=== PATIENT | male | born 1975 | race Caucasian/White ===

== ENCOUNTER 2024-10-30 18:34 | Inpatient (IN) | payer MEDICAID, SELFPAY ==
[2024-10-30] VITALS (20 sets, daily range): BP systolic 194–262; BP diastolic 124–184; PULSE 76–113; RESP 13–34; TEMP 37–37.2; O2SAT 84–97; BMI 35.3
--- NOTE | 2024-10-30 19:03 | PC.NURSE ---
Kemi bedside talking with pt. and pt.'s Mother.
--- NOTE | 2024-10-30 19:04 | EKG_ITS ---
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
--- NOTE | 2024-10-30 19:04 | XR_ITS ---
Examination: AP chest single view Technique: Portable sitting AP chest single view. Date and time: October 30, 2024 1906 hrs. Indications: Shortness of breath today. Findings: Significantly enlarged cardiac contour. No pneumonia or pulmonary edema. The osseous structures are intact Impression: Significantly enlarged cardiac contour, differential would include pericardial effusion
--- NOTE | 2024-10-30 19:05 | PC.NURSE ---
Pt. states he coughs mostly at night but he doesn't cough anything up.
--- NOTE | 2024-10-30 19:16 | EDNOTE_ITS ---
ED SOB =RME/HPI General Chief Complaint: Shortness of Breath/Dyspnea Stated Complaint: SOB Time Seen by Provider: 10/30/24 18:56 Arrival date/time: 10/30/24 18:34 RME / HPI RME / HPI Narrative: 49-year-old male patient shortness of breath. According to the patient has been sick for the last 3 weeks, described as worsening shortness of breath, especially on lying flat, feels like drowning, associated with worsening lower extremity swelling. Patient also complained of dyspnea on exertion. Went to PCP today and was diagnosed with COVID-19. Was sent as for a blood pressure above 262/184. Patient is not taking any medication and have not seen a doctor for a while. No fever noted. Patient was noted to be hypoxic also currently satting 96% on 2 L Related Data Allergies Allergy/AdvReac Type Severity Reaction Status Date / Time NKA* Allergy Uncoded 10/30/24 18:59 Review of Systems Review of Systems Narrative Review of Systems: Review of system reviewed and within normal limits except mentioned in HPI ED Exam Narrative Physical exam: VITAL SIGNS: Reviewed. GENERAL APPEARANCE: Alert and interactive, follows commands, no acute distress, HEAD AND FACE: Non-traumatic. ENT: PERRL, pink conjunctivitis, eyelid no trauma, Mucous membrane moist. NECK: Supple, nontender, no nuchal rigidity. CHEST: No tenderness, no crepitus, no paradoxical movement, no retractions. LUNGS: Symmetric, + right basal rales, no wheezing, no ronchi, no stridor, decreased breath sounds bilaterally. HEART: Regular rate, regular rhythm, no murmur, no gallops. ABDOMEN: Soft, positive bowel sounds, nondistended, no guarding, nontender, no rebound, no masses, RECTAL: Deferred. GENITAL: Deferred. NEUROLOGICAL: Gross motor function intact sensory function intact, Appropriate for age. MUSCULOSKELETAL: low back nontender, full range of motion. EXTREMITIES: + +3 bilateral lower extremity edema all the way to the waist area. Full range of motion., Nontender SKIN: Color pink, dry, no rash, no lacerations, no abrasions, no contusions. LYMPHATICS: Deferred. Course Quality Measures none Orders Category Date Time Status Bedside COVID-19 Antigen Test NOW Care 10/30/24 20:08 Active COVID-19 Screening Questionnaire NOW Care 10/30/24 21:16 Completed Decision to Admit X1 Care 10/30/24 21:16 Completed EKG (ED ONLY) *Do not use* NOW Care 10/30/24 19:04 Completed EKG (ED Only) Stat Exams 10/30/24 19:04 Draft XR chest 1V Stat Exams 10/30/24 19:04 Completed B-Type Natriuretic Peptide Stat Lab 10/30/24 19:10 Completed Blood Culture (Lab) Stat Lab 10/30/24 19:10 Received CBC Stat Lab 10/30/24 19:10 Completed Comprehensive Metabolic Panel Stat Lab 10/30/24 19:10 Completed Drug Screen,Urine Stat Lab 10/30/24 20:31 Completed Lactate (Lactic Acid) Stat Lab 10/30/24 19:10 Completed Magnesium Stat Lab 10/30/24 19:10 Completed Partial Thromboplastin Time Stat Lab 10/30/24 19:10 Completed Procalcitonin Stat Lab 10/30/24 19:10 Completed Prothrombin Time with INR Stat Lab 10/30/24 19:10 Completed Troponin I Stat Lab 10/30/24 19:10 Completed Troponin I Stat Lab 10/30/24 22:00 Completed Urinalysis, C/S if Indicated Stat Lab 10/30/24 20:31 Completed Furosemide Inj [Lasix Inj] Med 10/30/24 19:04 Discontinued 40 mg IVP X1 ONE Labetalol IV [Trandate IV] Med 10/30/24 19:04 Discontinued 10 mg IVP X1 ONE Labetalol IV [Trandate IV] Med 10/30/24 21:51 Discontinued 10 mg IVP X1 ONE Nitroglycerin Oint 2% [Nitro-paste Oint 2%] Med 10/30/24 19:04 Discontinued 1 inch TOP X1 ONE Potassium Chloride [K-Dur] Med 10/30/24 20:02 Discontinued 40 meq PO X1 ONE hydrALAZINE INJ [Apresoline Inj] Med 10/30/24 20:07 Discontinued 10 mg IVP X1 ONE Vital Signs Vital signs: Vital Signs Temperature 98.6 F 10/30/24 18:54 Pulse Rate 107 H 10/30/24 18:54 Respiratory Rate 22 H 10/30/24 18:54 Blood Pressure 262/184 H 10/30/24 18:54 Pulse Oximetry (%) 96 09/03/25 18:54 Oxygen Delivery Method Nasal Cannula 10/30/24 18:54 Oxygen Flow Rate 2 10/30/24 18:54 Shortness of Breath / Dyspnea [facility] Narrative [facility] Narrative:: 49-year-old male patient shortness of breath. According to the patient has been sick for the last 3 weeks, described as worsening shortness of breath, especially on lying flat, feels like drowning, associated with worsening lower extremity swelling. Patient also complained of dyspnea on exertion. Went to PCP today and was diagnosed with COVID-19. Was sent as for a blood pressure above 262/184. Patient is not taking any medication and have not seen a doctor for a while. No fever noted. Patient was noted to be hypoxic also currently satting 96% on 2 L. EKG showed sinus tachycardia, ventricular rate 106 bpm, VT interval 169 MS, no ST segment elevation or depression noted. Patient's blood pressure was initi ally noted to be 262/184, heart rate 107, received labetalol 10 mg IV, hydralazine 10 mg IV. Patient's blood pressure stable BP 224/163. I added another 10 mg of labetalol. Patient also received Nitropaste, and Lasix IV. Plan of care discussed with the patient initially he wanted to go AMA however I convinced patient to stay in the hospital patient agrees to be admitted. Patient chest x-ray showed cardiomegaly suspect possible pericardial effusion. Patient's laboratory workup significant for creatinine of 2.4, BUN of 28, potassium 3.0. Patient was also given potassium replacement. Patient was noted to have a troponin of 0.135. BNP was 63. Urinalysis no UTI Spoke with hospitalist, who admitted the patient. Patient data External records reviewed:: None Clinical information provided by:: patient and family Social determinants that could affect healthcare access:: none Patient has the following chronic illnesses:: None How is presenting disease/condition affected by chronic disease/condition?: no chronic disease Evaluation data The following diagnostics were reviewed and interpreted by me:: lab results and radiology exam(s) Lab and/or radiology exams considered but not ordered:: Plan Interpretation Summary: See results MDM Medications / Prescriptions Medications or Prescriptions considered but not ordered:: None Medication administrations:: Medication Administration History Discontinued Medications Furosemide (Furosemide Inj 10 Mg/Ml 4ml Vial) 40 mg IVP X1 ONE Stop: 10/30/24 19:05 Last Admin: 10/30/24 19:25 Dose: 40 mg Documented By: EE Hydralazine HCl (Hydralazine Inj 20 Mg/Ml Vial) 10 mg IVP X1 ONE Stop: 10/30/24 20:08 Last Admin: 10/30/24 20:19 Dose: 10 mg Documented By: CVL Labetalol HCl (Labetalol Inj 5 Mg/Ml Vial 20 Ml) 10 mg IVP X1 ONE Stop: 10/30/24 19:05 Last Admin: 10/30/24 19:25 Dose: 10 mg Documented By: EE Labetalol HCl (Labetalol Inj 5 Mg/Ml Vial 20 Ml) 10 mg IVP X1 ONE Stop: 10/30/24 21:52 Last Admin: 10/30/24 21:56 Dose: 10 mg Documented By: EE Nitroglycerin (Nitroglycerin Oint 2% 1 Inch Packet) 1 inch TOP X1 ONE Stop: 10/30/24 19:05 Last Admin: 10/30/24 19:22 Dose: 1 inch Documented By: EE Potassium Chloride (Potassium Chloride 20 Meq Tabcr) 40 meq PO X1 ONE Stop: 10/30/24 20:03 Last Admin: 10/30/24 20:17 Dose: 40 meq Documented By: CVL IV Lasix, potassium replacement, Nitropaste, labetalol IV, hydralazine IV, Consultations Consultation(s) initiated? (list below): No Diagnosis Shortness of Breath Differential Diagnosis: acute exacerbation of chronic ob structive airways disease, congestive heart failure and community acquired pneumonia Most likely diagnosis given after review of the tests above:: HARINDER, hypertensive emergency, congestive heart failure Admission Indicated Admission indicated?: indicated Explain why admission is indicated or not indicated:: Patient is to be admitted for further management Admission Request Was there a request for admission?: Yes Admission Attestation Admission request attestation: Discussed case with [Dr. Ga] from Hospitalist service regarding admission. Discussed patients ED course, exam findings, labs, and radiology results. The Hospitalist [agrees] to accept the patient for admission. Disposition Plan Disposition Plan: Admit Discharge Plan Plan Patient Disposition: Admit Acute Care w/in Hospital Discharge Disposition comment: Stable Prescriptions/Referrals Referrals: No Primary/Family,Physician [Primary Care Provider] - In 1 week Problem List Clinical Impression: Hypertensive emergency, Congestive heart failure, COVID Patient/Caregiver Discharge Instructions Print Language: Mongolian Stand Alone Forms: Celia Award Info., Patient Portal Info Letter
[2024-10-30 19:22] LABS: Lactate (Lactic Acid) 1.2 mMol/L (0.4-2.0)
[2024-10-30] MEDS: NITROGLYCERIN OINT 2% 1 INCH PACKET TOP (19:22)
[2024-10-30] MEDS: FUROSEMIDE INJ 10 MG/ML 4ML VIAL 40 MG IVP (19:25)
[2024-10-30] MEDS: LABETALOL INJ 5 MG/ML VIAL 20 ML 10 MG IVP ×2 (19:25→21:56)
[2024-10-30 19:27] LABS: Basophils # (Auto) 0.1 Thou/mm3 (0.0-0.2); Basophils % (Auto) 1 % (0-2.5); Eosinophils # (Auto) 0.1 Thou/mm3 (0.0-0.5); Eosinophils % (Auto) 1 % (0-10); Hematocrit 37.1 % (41.0-53.0); Hemoglobin 11.8 g/dL (13.5-16.0); Immature Granulocytes Auto 0.05 Thou/mm3 (0.00-0.00); Lymphocytes # (Auto) 1.2 Thou/mm3 (1.0-4.8); Lymphocytes % (Auto) 12 % (10-50); Mean Corpuscular HGB Conc 31.8 g/dl (31.0-37.0); Mean Corpuscular Hemoglobin 25.7 pg (25.0-35.0); Mean Corpuscular Volume 81 fL (80-100); Monocytes # (Auto) 0.6 Thou/mm3 (0.0-0.8); Monocytes % (Auto) 6 % (0-12); Neutrophils # (Auto) 8.4 Thou/mm3 (1.8-7.7); Neutrophils % (Auto) 80 % (37-80); Nucleated Red Blood Cell # 0.00 Thou/mm3 (0.00-0.00); Nucleated Red Blood Cell % 0 /100 WBC (0); Platelet Count 306 Thou/mm3 (140-440); RDW Standard Deviation 48.4 fL (35.1-43.9); Red Blood Count 4.60 Miln/mm3 (4.50-5.90); White Blood Count 10.5 Thou/mm3 (3.8-10.6)
[2024-10-30 19:55] LABS: B-Type Natriuretic Peptide 163 pg/mL (0-100)
[2024-10-30 19:57] LABS: Alanine Aminotransferase 59 U/L (10-49); Albumin, Serum 4.1 gm/dL (3.5-5.0); Albumin/Globulin Ratio 1.4 (1.2-2.2); Alkaline Phosphatase 133 U/L (46-116); Anion Gap 12 (7-16); Aspartate Amino Transferase 57 U/L (0-34); BUN/Creatinine Ratio 12 Ratio (12-20); Bilirubin,Total 1.1 mg/dL (0.3-1.2); Blood Urea Nitrogen 28 mg/dL (9-23); Calcium 9.5 mg/dL (8.3-10.6); Calcium (Corrected) 9.5 mg/dL (8.5-10.1); Carbon Dioxide 28.5 mMol/L (20.0-31.0); Chloride 101 mMol/L (98-107); Creatinine (Component) 2.4 mg/dL (0.6-1.3); Estimated Creatinine Clearance 52.8 mL/min (>60); Globulin 3.0 gm/dL (2.3-3.5); Glucose 100 mg/dL (74-106); Magnesium 1.9 mg/dL (1.6-2.6); Osmolality,Calculated 286 (275-295); Potassium 3.0 mMol/L (3.4-5.1); Procalcitonin 0.12 ng/ml (0.0-0.49); Sodium 141 mMol/L (136-145); Total Protein 7.1 gm/dL (5.7-8.2); eGFR 32 See Note
[2024-10-30 19:58] LABS: Troponin I 0.135 ng/mL (0.0-0.045)
[2024-10-30 20:08] LABS: INR 1.1 (0.9-1.3); Partial Thromboplastin Time 24.7 Seconds (22.0-36.0); Prothrombin Time 12.2 Seconds (9.0-12.2)
[2024-10-30] MEDS: hydrALAZINE INJ 20 MG/ML VIAL 10 MG IVP (20:19)
[2024-10-30 20:35] LABS: Collection Type, Urine Clean Catch
[2024-10-30 20:46] LABS: Bacteria,Urine Rare; Bilirubin,Urine Negative (Negative); Blood,Urine 2+ (Negative); Clarity,Urine Clear (Clear/Hazy); Color,Urine Yellow (Lt Yel-Yel); Culture Indicated,Urine Not Indicated; Glucose, Urine Negative (Negative); Hyaline Casts,Urine 2 /hpf (0-1); Ketones,Urine Negative (Negative); Leukocyte Esterase,Urine Negative (Negative); Nitrite,Urine Negative (Negative); PH,Urine 6.0 (5.0-7.0); Protein,Urine 3+ (Neg - Trace); RBC,Urine 4 /hpf (0-3); Specific Gravity,Urine 1.018 (1.001-1.035); Squamous Epithelial Cell,Urine 1 /hpf (0-5); Urobilinogen,Urine 2.0 mg/dL (0.0-1.0); WBC,Urine 1 /hpf (0-5)
[2024-10-30 22:32] LABS: Troponin I 0.119 ng/mL (0.0-0.045)
[2024-10-30 22:50] LABS: Amphetamine/Methamp Scrn,U Positive (Negative); Barbiturate Screen,Urine Negative (Negative); Benzodiazepines Screen,Urine Negative (Negative); Benzoylecgonine Screen, Ur Negative (Negative); Fentanyl Screen,Urine Negative (Negative); Opiate Screen,Urine Negative (Negative); THC Screen,Urine Negative (Negative)
[2024-10-30 23:42] LABS: Glucose Estimated Average 111 mg/dL (80-131); Hemoglobin A1C 5.5 % Hgb (4.8-6.0)
[2024-10-30 23:46] LABS: Thyroid Stimulating Hormone 5.76 uIU/mL (0.55-4.78)
--- NOTE | 2024-10-30 23:51 | ESHP_ITS ---
Documentation for date of: 10/30/24 HPI History of Present Illness History of present illness: This is a 49-year-old male with past medical history of gout, referred to ED by PCP for shortness of breath and increased lower extremity swelling. Reports greater than 3 months of worsening SOB, appears exertional, unable to walk more than 50 ft without taking breaks, unable to lay flat secondary to shortness of breath, and waking up at night multiple times from short of breath. He also has worsening lower extremity swelling over the last month bilaterally which prompted him to visit primary care today. Over the last week he has had dry cough, but denies sick exposure. Also reports frequent urination, having to use the restroom multiple times a day over the last week. Other than above mention, he denies other medical problems. Never seen PCP in the past. Not aware of having HTN or other medical problems. Denies chest pain, palpitations, ROJAS, fever, chills, productive cough, abdominal pain, N/V/D/C, dysuria, or abnormal bleeding. Past Medical History: * Gout. Past Surgical History: * Right knee surgery. Medications: * ALLOPURINOL for gout. Allergies: * No known allergies. Family History: * Dad , of natural causes. * Mother has history of diabetes, otherwise alive and well. * Brother history of diabetes. * No family history of heart disease or sudden cardiac . Social History: * Born and raised in the [place], lives with brother at home. Never , no children, currently in monogamous relationship with his girlfriend. * Smoked 1 pack a year for greater than 20 years, currently trying to quit, smoking about 5 cigarettes daily. * History of heavy alcohol use for more than 30 years. * Denies illicit drug use, however UTOX positive for AMPHETAMINE. * Note patient travel or sick exposure. ED Course: * Afebrile, BP 262/8184, HR 107, RR 22, satting 84% ORA, improved to 96% on 2 L NC. * CBC showed Hgb 11.1, WBC 10.5 with acute left shift. Normal coag panel. * CMP remarkable for potassium 3.0, creatinine 2.4, BUN 28, eGFR 32, AST 57, ALT 59, ALP 133, troponin 0.134 > 0.119, BNP 163, TSH 5.76. Lactic acid was normal. * UA showed 4+ RBC, 2+ blood, 3+ protein. No UTI. * EKG showed sinus tachycardia without acute ST changes. * CXR showed enlarged cardiac contour, cardiomegaly, concern for pericardial effusion, no pneumonia. * Rapid COVID test was positive. Reason for admission: Presented with signs and symptoms of CHF exacerbation associated with hypertensive emergency. Likely has undiagnosed heart failure, exacerbated in settings of active COVID infection. He has multiple risk factors for heart disease including obesity, polysubstance abuse, likely chronic uncontrolled hypertension. He will be admitted for aggressive diuresis and cardiac optimization. Exam Vital Signs Temp Pulse Resp BP Pulse Ox O2 Del Method O2 Flow Rate 98.7 F 82 13 222/133 H 97 Nasal Cannula 2 10/30/24 22:15 10/30/24 23:00 10/30/24 23:00 10/30/24 23:00 10/30/24 23:00 10/30/24 23:00 10/30/24 23:00 Narrative Exam GENERAL * Obese male, on 2 L NC, satting well. HEENT * NCAT.?JOLLY. Oral mucosa is moist. Patent Nares NECK * Supple, nontender, no JVD. CHEST * Tachycardia, regular rhythm, no m/g/r * Possible crackles bilaterally, difficult exam 2/2 body habitus, no wheezing ABDOMEN * Soft, flat, nontender. No guarding/rebound tenderness/masses. * Bowel sounds presents EXTREMITIES * 3+ bilateral lower extremity edema. SKIN * Warm and dry, no jaundice/rashes. NEUROMUSCULAR * No lumbar or midline, no CVA, no paraspinal muscle spasm or tenderness. * Moves all 4 extremities well, with full ROM and good CSM. * SIN x4, CN II-XII grossly intact. * No focal neurologic deficits. PSYCHIATRY * Normal mood and affect, cooperative, no SI or HI or hallucinations. Results: Labs 10/30/24 19:10 10/30/24 19:10 Labs: Short CBC 10/30/24 Range/Units 19:10 WBC 10.5 (3.8-10.6) Thou/mm3 Hgb 11.8 L (13.5-16.0) g/dL Hct 37.1 L (41.0-53.0) % Plt Count 306 (140-440) Thou/mm3 BMP 10/30/24 19:10 Sodium 141 Potassium 3.0 L Chloride 101 Carbon Dioxide 28.5 BUN 28 H Creatinine 2.4 H Glucose 100 Calcium 9.5 Cardiac Enzymes 10/30/24 10/30/24 Range/Units 19:10 22:00 Troponin I 0.135 H* 0.119 H* (0.0-0.045) ng/mL Liver Function 10/30/24 Range/Units 19:10 Total Bilirubin 1.1 (0.3-1.2) mg/dL AST 57 H (0-34) U/L ALT 59 H (10-49) U/L Alkaline Phosphatase 133 H (46-116) U/L Albumin 4.1 (3.5-5.0) gm/dL Urine 10/30/24 Range/Units 20:31 Urine Color Yellow (Lt Yel-Yel) Urine Clarity Clear (Clear/Hazy) Urine pH 6.0 (5.0-7.0) Ur Specific [place] 1.018 (1.001-1.035) Urine Protein 3+ A (Neg - Trace) Urine Glucose (UA) Negative (Negative) Quality Measures Quality Measures none Medications Home Medications and Allergies Allergies Allergy/AdvReac Type Severity Reaction Status Date / Time NKA* Allergy Uncoded 10/30/24 18:59 Visit Medications Acetaminophen (Acetaminophen 325 Mg Tablet) 650 mg PO Q6H PRN PRN Reason: PAIN SCALE 1-3 (mild Stop: 11/29/24 23:45 Acetaminophen (Acetaminophen 325 Mg Tablet) 650 mg PO Q6H PRN PRN Reason: Fever >100.4 Stop: 11/29/24 23:45 Hydrocodone Bitart/Acetaminophen (Hydrocodone/Apap 10/325 Tab) 1 tab PO Q4HR PRN PRN Reason: PAIN SCALE 7-10 (Severe Stop: 11/04/24 23:45 Heparin Sodium (Porcine) (Heparin Sod Inj 5000 Unit/Ml Vial) 5,000 unit SC Q8HR HAYLEY Stop: 11/14/24 05:59 Ondansetron HCl (Ondansetron Inj 2 Mg/Ml Inj 2 Ml) 4 mg IVP Q6H PRN; Protocol PRN Reason: NAUSEA OR VOMITING Stop: 11/29/24 23:45 Oxycodone/Acetaminophen (Oxycodone/Apap 5/325 Tablet) 1 tab PO Q6H PRN PRN Reason: PAIN SCALE 4-6 (Moderate Stop: 11/04/24 23:45 Pantoprazole Sodium (Pantoprazole Inj 40 Mg Vial) 40 mg IVP QDAY HAYLEY Stop: 11/30/24 08:59 Discontinued Medications Furosemide (Furosemide Inj 10 Mg/Ml 4ml Vial) 40 mg IVP X1 ONE Stop: 10/30/24 19:05 Last Admin: 10/30/24 19:25 Dose: 40 mg Furosemide (Furosemide Inj 10 Mg/Ml 4ml Vial) 80 mg IVP X1 ONE Stop: 10/30/24 23:21 Hydralazine HCl (Hydralazine Inj 20 Mg/Ml Vial) 10 mg IVP X1 ONE Stop: 10/30/24 20:08 Last Admin: 10/30/24 20:19 Dose: 10 mg Labetalol HCl (Labetalol Inj 5 Mg/Ml Vial 20 Ml) 10 mg IVP X1 ONE Stop: 10/30/24 19:05 Last Admin: 10/30/24 19:25 Dose: 10 mg Labetalol HCl (Labetalol Inj 5 Mg/Ml Vial 20 Ml) 10 mg IVP X1 ONE Stop: 10/30/24 21:52 Last Admin: 10/30/24 21:56 Dose: 10 mg Nitroglycerin (Nitroglycerin Oint 2% 1 Inch Packet) 1 inch TOP X1 ONE Stop: 10/30/24 19:05 Last Admin: 10/30/24 19:22 Dose: 1 inch Potassium Chloride (Potassium Chloride 20 Meq Tabcr) 40 meq PO X1 ONE Stop: 10/30/24 20:03 Last Admin: 10/30/24 20:17 Dose: 40 meq Assessment & Plan Plan This is a 49-year-old male with past medical history of gout, admitted for acute hypoxemic respiratory failure likely in setting of CHF exacerbation, hypertensive emergency and COVID-pneumonia. Acute hypoxemic respiratory failure CHF exacerbation NYHA Class III heart failure COVID PNA Hypertensive emergency NSTEMI type II, demand ischemia HARINDER Acute transaminitis Electrolyte abnormalities Polysubstance use disorder We've initiated treatment for CHF exacerbation with IV diuretics. However, on multiple occasions, he expressed desire to leave AMA. We had his mother and partner speak with him multiple times, initially he agreed to stay, but eventually he wanted to AMA again. Discussed with patient the risks of leaving against medical advice, including potential worsening of condition. Strongly advised staying for further treatment. Patient understood and chose to leave. Demonstrated decision-making capacity. AMA form reviewed and signed.
[2024-10-31] VITALS (9 sets, daily range): BP systolic 203–230; BP diastolic 127–150; PULSE 75–88; RESP 14–25; TEMP 36.8–36.9; O2SAT 88–95
[2024-10-31] MEDS: FUROSEMIDE INJ 10 MG/ML 4ML VIAL 80 MG IVP (00:26)
[2024-10-31] MEDS: LABETALOL INJ 5 MG/ML VIAL 20 ML 10 MG IVP (00:27)
[2024-10-31] MEDS: Magnesium Sulfate 2 GM Ivpb 2 GM/50 ML BAG IV (00:28)
--- NOTE | 2024-10-31 01:44 | PC.NURSE ---
PT REMOVED IV AND ALL MONITORING DEVICES. PT STATES HE WANTS TO LEAVE BECAUSE HE FEELS BETTER AND FEELS HE DOES NOT NEED TO BE HERE. PT EXPLAINED ALL RISKS AND CONSEQUENCES UP TO AND INCLUDING IF HE DECIDED TO LEAVE. PT STATES HE UNDERSTANDS. PT A/OX3 GCS 15 AND AMBULATING WITH A STEADY GAIT OUT OF FROM 10. MD RODRIGUEZ, AND DR HORNE ATTENDING AT BEDSIDE, EDUCATING PT ON IMPORTANCE OF STAYING. PT STILL MAKING DECISION TO LEAVE. AMA FILLED OUT.
== END 2024-10-31 01:50 | disposition left against medical advice (07) | DRG 137 ==
LOC: SERX 22:33 → SERHOLD 10-31 00:43
PROVIDERS: Nurse Practitioner Family; Admitting Provider Student in an Organized Health Care Education/Training Program; Emergency Provider Emergency Medicine; Visit Provider Student in an Organized Health Care Education/Training Program
DX: U07.1 COVID-19 (principal); I21.A1 Myocardial infarction type 2; J12.82 Pneumonia due to coronavirus disease 2019; J96.01 Acute respiratory failure with hypoxia; I16.1 Hypertensive emergency; N17.9 Acute kidney failure, unspecified; I50.9 Heart failure, unspecified; F19.90 Other psychoactive substance use, unspecified, uncomplicated; M10.9 Gout, unspecified; F17.210 Nicotine dependence, cigarettes, uncomplicated; Z53.29 Procedure and treatment not carried out because of patient's decision for other reasons
CPT/HCPCS: 36415; 71045; 80053; 80061; 80307; 81001; 83036; 83605; 83735; 83880; 84100; 84145; 84439; 84443; 84484; 85025; 85610; 85730; 87040; 87811; 93005; 96374; 96375; 96376; 99284; A4314; J0360; J1938; J3475; J3490; A9270; J1920

== ENCOUNTER 2024-10-31 16:05 | Inpatient (IN) | payer MEDICAID, SELFPAY ==
[2024-10-31] VITALS (7 sets, daily range): BP systolic 209–248; BP diastolic 15–151; PULSE 81–102; RESP 18–24; TEMP 36.8–37.3; O2SAT 91–98; BMI 23.1
--- NOTE | 2024-10-31 16:40 | XR_ITS ---
Examination: AP chest single view Technique one AP portable upright chest single view Date and time: October 31, 2024, 1649 hrs., Comparison October 30, 2024 Indications: Shortness of breath chest pain beginning today. Findings: Mild heart failure. Moderate enlargement cardiac contour. Differential would include pericardial effusion Prominent vascular congestion. Early pulmonary edema the lung bases. Impression: Mild heart failure.
--- NOTE | 2024-10-31 16:41 | EKG_ITS ---
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
--- NOTE | 2024-10-31 16:41 | PD.EDADULT ---
ED General RME/HPI General Chief complaint: General Adult/Misc Complain Stated complaint: HIGH B/P, SEEN YESTERDAY AND LEFT AMA Time Seen by Provider: 10/31/24 16:31 Arrival date/time: 10/31/24 16:05 RME / HPI RME / HPI narrative: 49-year-old male patient with no significant past medical history, was brought in by her girlfriend for evaluation regarding worsening shortness of breath and blood pressure problem. Patient was seen here yesterday for worsening bilateral lower extremity, has been ongoing for more than 3 weeks, associated with dyspnea on exertion, orthopnea, he had to wake up a couple times during the night due to gasping of air. Patient was seen by PCP, and was diagnosed with COVID-19 and was sent to us yesterday for blood pressure above 265 systolic. I saw the patient yesterday, and was diagnosed with undiagnosed congestive heart failure, hypertension emergency and admitted the patient however after patient talk to the hospitalist patient decided to leave AGAINST MEDICAL ADVICE. Today patient came here asking for help, and told me that he is going to stay this time he is not going home. He is not taking any medication. In the triage patient's blood pressure was noted to be 235/143, satting 97%. Related Data Allergies Allergy/AdvReac Type Severity Reaction Status Date / Time No Known Allergies Allergy Verified 10/31/24 16:07 Review of Systems Review of Systems Narrative Review of Systems: Review of system reviewed and within normal limits except mentioned in HPI ED Exam Narrative Physical exam: VITAL SIGNS: Reviewed. GENERAL APPEARANCE: Alert and interactive, follows commands, no acute distress, HEAD AND FACE: Non-traumatic. ENT: PERRL, pink conjunctivitis, eyelid no trauma, Mucous membrane moist. NECK: Supple, nontender, no nuchal rigidity. CHEST: No tenderness, no crepitus, no paradoxical movement, no retractions. LUNGS: Clear, well ventilated, symmetric, no rales, no wheezing, no ronchi, no stridor, good breath sounds bilaterally. HEART: Regular rate, regular rhythm, no murmur, no gallops. ABDOMEN: Soft, positive bowel sounds, nondistended, no guarding, nontender, no rebound, no masses, RECTAL: Deferred. GENITAL: Deferred. NEUROLOGICAL: Gross motor function intact sensory function intact, Appropriate for age. MUSCULOSKELETAL: low back nontender, full range of motion. EXTREMITIES: Bilateral lower extremity edema, full range of motion. SKIN: Color pink, dry, no rash, no lacerations, no abrasions, no contusions. LYMPHATICS: Deferred. Course Quality Measures none Orders Category Date Time Status COVID-19 Screening Questionnaire NOW Care 10/31/24 19:36 Active Decision to Admit X1 Care 10/31/24 19:36 Active EKG (ED ONLY) *Do not use* NOW Care 10/31/24 16:41 Completed Insert IV NOW Care 10/31/24 18:05 Active EKG (ED Only) Stat Exams 10/31/24 16:41 Draft XR chest 1V Stat Exams 10/31/24 16:40 Completed B-Type Natriuretic Peptide Stat Lab 10/31/24 16:50 Completed CBC Stat Lab 10/31/24 16:50 Completed Comprehensive Metabolic Panel Stat Lab 10/31/24 16:50 Completed Partial Thromboplastin Time Stat Lab 10/31/24 16:50 Completed Prothrombin Time with INR Stat Lab 10/31/24 16:50 Completed Troponin I Stat Lab 10/31/24 16:50 Completed Urinalysis, C/S if Indicated Stat Lab 10/31/24 16:40 Ordered Furosemide Inj [Lasix Inj] Med 10/31/24 16:40 Discontinued 40 mg IVP X1 ONE Labetalol IV [Trandate IV] Med 10/31/24 16:40 Discontinued 10 mg IVP X1 ONE Labetalol IV [Trandate IV] Med 10/31/24 19:43 Discontinued 10 mg IVP X1 ONE Midazolam Inj [Versed Inj] Med 10/31/24 19:43 Discontinued 2 mg IVP X1 ONE Potassium Chloride [K-Dur] Med 10/31/24 20:20 Once 40 meq PO X1 ONE Vital Signs Vital signs: Vital Signs Temperature 99.1 F 10/31/24 16:26 Pulse Rate 102 H 10/31/24 16:26 Respiratory Rate 18 10/31/24 16:26 Blood Pressure 243/149 H 10/31/24 16:26 Pulse Oximetry (%) 97 10/31/24 16:26 Oxygen Delivery Method Room Air 10/31/24 16:26 Discharge Plan Plan Patient Disposition: Admit Acute Care w/in Hospital Discharge Disposition comment: Stable Prescriptions/Referrals Referrals: No Primary/Family,Physician [Primary Care Provider] - In 1 week Problem List Clinical Impression: Hypertensive emergency, Congestive heart failure, COVID, Acute hypokalemia, HARINDER (acute kidney injury) Patient/Caregiver Discharge Instructions Print Language: Wolof Stand Alone Forms: Celia Award Info., Patient Portal Info Letter MDM Narrative MDM hospital course: 49-year-old male patient with no significant past medical history, was brought in by her girlfriend for evaluation regarding worsening shortness of breath and blood pressure problem. Patient was seen here yesterday for worsening bilateral lower extremity, has been ongoing for more than 3 weeks, associated with dyspnea on exertion, orthopnea, he had to wake up a couple times during the night due to gasping of air. Patient was seen by PCP, and was diagnosed with COVID-19 and was sent to us yesterday for blood pressure above 265 systolic. I saw the patient yesterday, and was diagnosed with undiagnosed congestive heart failure, hypertension emergency and admitted the patient however after patient talk to the hospitalist patient decided to leave AGAINST MEDICAL ADVICE. Today patient came here asking for help, and told me that he is going to stay this time he is not going home. He is not taking any medication. In the triage patient's blood pressure was noted to be 235/143, satting 97%. EKG shows sinus rhythm, ventricular rate of 100 bpm, ID interval 152 MS, no ST segment elevation or depression noted. CBC showed leukocytosis of 11.4, potassium 2.8, creatinine 2.7, BUN of 55. AST 47 alkaline phos of 128, initial troponin was noted to be 0.140. BNP of 868. Chest x-ray showed mild heart failure. Patient received IV Lasix, IV labetalol, Versed and potassium replacement. Spoke with hospitalist, who admitted the patient. Medication Administration(s) Medication Administration History Potassium Chloride (Potassium Chloride 20 Meq Tabcr) 40 meq PO X1 ONE Stop: 10/31/24 20:21 Discontinued Medications Furosemide (Furosemide Inj 10 Mg/Ml 4ml Vial) 40 mg IVP X1 ONE Stop: 10/31/24 16:41 Last Admin: 10/31/24 18:08 Dose: 40 mg Documented By: LISSA Labetalol HCl (Labetalol Inj 5 Mg/Ml Vial 20 Ml) 10 mg IVP X1 ONE Stop: 10/31/24 16:41 Last Admin: 10/31/24 18:08 Dose: 10 mg Documented By: LISSA Labetalol HCl (Labetalol Inj 5 Mg/Ml Vial 20 Ml) 10 mg IVP X1 ONE Stop: 10/31/24 19:44 Midazolam HCl (Midazolam Inj 1 Mg/Ml Vial 2 Ml) 2 mg IVP X1 ONE Stop: 10/31/24 19:44 Diagnosis Differential diagnosis: Methamphetamine abuse, congestive heart failure, newly diagnosed, HARINDER, hypo Most likely dx, and/or detailed dx discussion: Methamphetamine abuse, congestive heart failure, HARINDER, hypokalemia Dispositon Disposition: Admit
[2024-10-31 17:21] LABS: Basophils # (Auto) 0.1 Thou/mm3 (0.0-0.2); Basophils % (Auto) 1 % (0-2.5); Eosinophils # (Auto) 0.2 Thou/mm3 (0.0-0.5); Eosinophils % (Auto) 1 % (0-10); Hematocrit 36.0 % (41.0-53.0); Hemoglobin 11.1 g/dL (13.5-16.0); Immature Granulocytes Auto 0.04 Thou/mm3 (0.00-0.00); Lymphocytes # (Auto) 1.1 Thou/mm3 (1.0-4.8); Lymphocytes % (Auto) 9 % (10-50); Mean Corpuscular HGB Conc 30.8 g/dl (31.0-37.0); Mean Corpuscular Hemoglobin 24.8 pg (25.0-35.0); Mean Corpuscular Volume 80 fL (80-100); Monocytes # (Auto) 0.9 Thou/mm3 (0.0-0.8); Monocytes % (Auto) 8 % (0-12); Neutrophils # (Auto) 9.2 Thou/mm3 (1.8-7.7); Neutrophils % (Auto) 80 % (37-80); Nucleated Red Blood Cell # 0.00 Thou/mm3 (0.00-0.00); Nucleated Red Blood Cell % 0 /100 WBC (0); Platelet Count 304 Thou/mm3 (140-440); RDW Standard Deviation 49.2 fL (35.1-43.9); Red Blood Count 4.48 Miln/mm3 (4.50-5.90); White Blood Count 11.4 Thou/mm3 (3.8-10.6)
[2024-10-31 17:46] LABS: Alanine Aminotransferase 51 U/L (10-49); Albumin, Serum 4.0 gm/dL (3.5-5.0); Albumin/Globulin Ratio 1.6 (1.2-2.2); Alkaline Phosphatase 128 U/L (46-116); Anion Gap 13 (7-16); Aspartate Amino Transferase 47 U/L (0-34); B-Type Natriuretic Peptide 868 pg/mL (0-100); BUN/Creatinine Ratio 9 Ratio (12-20); Bilirubin,Total 1.0 mg/dL (0.3-1.2); Blood Urea Nitrogen 25 mg/dL (9-23); Calcium 9.8 mg/dL (8.3-10.6); Calcium (Corrected) 9.8 mg/dL (8.5-10.1); Carbon Dioxide 28.7 mMol/L (20.0-31.0); Chloride 100 mMol/L (98-107); Creatinine (Component) 2.7 mg/dL (0.6-1.3); Estimated Creatinine Clearance 38.6 mL/min (>60); Globulin 2.5 gm/dL (2.3-3.5); Glucose 107 mg/dL (74-106); Osmolality,Calculated 287 (275-295); Potassium 2.8 mMol/L (3.4-5.1); Sodium 142 mMol/L (136-145); Total Protein 6.5 gm/dL (5.7-8.2); eGFR 28 See Note
[2024-10-31 17:49] LABS: Troponin I 0.140 ng/mL (0.0-0.045)
[2024-10-31 17:56] LABS: INR 1.1 (0.9-1.3); Partial Thromboplastin Time 25.1 Seconds (22.0-36.0); Prothrombin Time 12.4 Seconds (9.0-12.2)
[2024-10-31] MEDS: FUROSEMIDE INJ 10 MG/ML 4ML VIAL 40 MG IVP (18:08)
[2024-10-31] MEDS: LABETALOL INJ 5 MG/ML VIAL 20 ML 10 MG IVP ×2 (18:08→20:29)
[2024-10-31] MEDS: MIDAZOLAM INJ 1 MG/ML VIAL 2 ML 2 MG IVP (20:30)
[2024-10-31 21:06] LABS: Collection Type, Urine Clean Catch; Squamous Epithelial Cell,Urine 0 /hpf (0-5)
[2024-10-31 21:10] LABS: Bilirubin,Urine Negative (Negative); Blood,Urine Trace (Negative); Clarity,Urine Clear (Clear/Hazy); Color,Urine Colorless (Lt Yel-Yel); Culture Indicated,Urine Not Indicated; Glucose, Urine Negative (Negative); Ketones,Urine Negative (Negative); Leukocyte Esterase,Urine Negative (Negative); Nitrite,Urine Negative (Negative); PH,Urine 7.0 (5.0-7.0); Protein,Urine Trace (Neg - Trace); RBC,Urine 1 /hpf (0-3); Specific Gravity,Urine 1.007 (1.001-1.035); Urobilinogen,Urine Negative mg/dL (0.0-1.0); WBC,Urine < 1 /hpf (0-5)
--- NOTE | 2024-10-31 21:49 | ECHO_ITS ---
Transthoracic Echo Report Ht (in): 74 Wt (lb): 275 Exam Location: Echo Lab Status: Emergency Header Machine Operator: Patricia Sweeney Indications: Procedure Performed: BP: 130 / 84 HR: 89 MEASUREMENTS (Male / Female) Normal Values 2D ECHO LV Diastolic Diameter PLAX 5.2 cm 4.2 - 5.9 / 3.9 - 5.3 cm LV Systolic Diameter PLAX 4.3 cm IVS Diastolic Thickness 1.6 cm 0.6 - 1.0 / 0.6 - 0.9 cm LVPW Diastolic Thickness 2.0 cm 0.6 - 1.0 / 0.6 - 0.9 cm LV Relative Wall Thickness 0.7 LVOT Diameter 2.1 cm LV Ejection Fraction MOD BP 37.9 % >= 55 % LV Cardiac Index MOD BP 2849.9 cm?/min?m? LV Ejection Fraction MOD 4C 25.8 % LV Cardiac Index MOD 4C 1716.8 cm?/min?m? LV Ejection Fraction 4C AL 25.2 % LV Cardiac Index 4C AL 1752.4 cm?/min?m? LV Ejection Fraction MOD 2C 48.7 % LV Cardiac Index MOD 2C 3983.0 cm?/min?m? LV Ejection Fraction 2C AL 50.0 % LV Cardiac Index 2C AL 4235.3 cm?/min?m? LA Volume Index 45.6 cm?/m? 16 - 28 cm?/m? Ascending Aorta Diameter 3.5 cm M-MODE AV Cusp Separation MM 1.3 cm DOPPLER AV Peak Velocity 150.0 cm/s AV Peak Gradient 9.0 mmHg AV Mean Gradient 6.0 mmHg AV Velocity Time Integral 27.6 cm LVOT Peak Velocity 95.9 cm/s LVOT Peak Gradient 3.7 mmHg LVOT Velocity Time Integral 16.9 cm LVOT Cardiac Index 2009.8 cm?/min?m? AV Area Cont Eq vti 2.1 cm? AV Area Cont Eq pk 2.2 cm? MV Area PHT 6.3 cm? Mitral E Point Velocity 99.4 cm/s Mitral A Point Velocity 51.4 cm/s Mitral E to A Ratio 1.9 TR Peak Velocity 209.3 cm/s TR Peak Gradient 17.5 mmHg PV Peak Velocity 80.1 cm/s PV Peak Gradient 2.6 mmHg FINDINGS Left Ventricle Severe LVH. Left ventricle global systolic function is Severly reduced. Mild Dilated LV.There is grade III diastolic dysfunction of the left ventricle (restrictive filling pattern). The ejection fraction is visually estimated at 20-25 %. Hypokinetic basal anterior wall motion. Hypokinetic mid- anterior wall motion. Right Ventricle Mild dilated RV. Right ventricular overload pressure. Left Atrium The left atrial cavity size is severely increased. Right Atrium The right atrial cavity size is moderately increased. Atrial Septum The interatrial septum appears normal with no evidence of a shunt. Aorta The aorta is normal by two-dimensional, color flow and Doppler interrogation. Mitral Valve The mitral valve is normal by two-dimensional, color flow and Doppler interrogation. Mild mitral regurgitation. Aortic Valve Aortic valve sclerosis without stenosis Tricuspid Valve The tricuspid valve is normal by two-dimensional, color flow and Doppler interrogation.there is trace tricuspid valve regurgitation. Pulmonic Valve Trivial pulmonic valve regurgitation. Vessels The pulmonary artery appears normal. The inferior vena cava pulmonary and hepatic veins appear normal. Pericardium There is a mild pericardial effusion without cardiac tamponade. CONCLUSIONS Indication: New onset CHF Severe LVH. Global systolic function is severely reduced. Grade III diastolic dysfunction. EF estimated 20- 25%. Mildly dilated RV. Septal flattening noted in the diastole indicating volume overload. Biatrial dilatation. Mild MR, Trace TR and PI. Mild aortic valve sclerosis without stenosis Small circumferential pericardial effusion without any evidence of cardiac tamponade Jameson Ferrara (Electronically Signed) Final Date: 02 November 2024 05:52
--- NOTE | 2024-10-31 21:58 | ESHP_ITS ---
Documentation for date of: 10/31/24 HPI History of Present Illness History of present illness: This is a 49-year-old male with past medical history of gout, and polysubstance use disorder, referred to ED by PCP for shortness of breath and increased lower extremity swelling. Reports greater than 3 months of worsening SOB, appears exertional, unable to walk more than 50 ft without taking breaks, unable to lay flat secondary to shortness of breath, and waking up at night multiple times from short of breath. He also has worsening lower extremity swelling over the last month bilaterally which prompted him to visit primary care today. Over the last week he has had dry cough, but denies sick exposure. Also reports frequent urination, having to use the restroom multiple times a day over the last week. Other than above mention, he denies other medical problems. Never seen PCP in the past. Not aware of having HTN or other medical problems. He was admitted yesterday for similar symptoms and elected to AMA. I had a private discussion today regarding his UTOX which came back positive for METHAMPHETAMINE, yesterday he denied any drug use. He states he has been using METHAMPHETAMINE for extended period, currently working on quitting. Family unaware of his METHAMPHETAMINE use and he would like to keep that privately. Additionally, he denied using METHAMPHETAMINE after he had made yesterday. He says he AMA because he was just nervous. He decided to return to the ED because family had convinced him to come back. Otherwise reports no changes in his symptoms. Denies chest pain, palpitations, ROJAS, fever, chills, productive cough, abdominal pain, N/V/D/C, dysuria, or abnormal bleeding. Past Medical History: * Gout. Past Surgical History: * Right knee surgery. Medications: * ALLOPURINOL for gout. Allergies: * No known allergies. Family History: * Dad , of natural causes. * Mother has history of diabetes, otherwise alive and well. * Brother history of diabetes. * No family history of heart disease or sudden cardiac . Social History: * Born and raised in the [place], lives with brother at home. Never , no children, currently in monogamous relationship with his girlfriend. * Smoked 1 pack a year for greater than 20 years, currently trying to quit, smoking about 5 cigarettes daily. * History of heavy alcohol use for more than 30 years. * Denies illicit drug use, however UTOX positive for AMPHETAMINE. * Note patient travel or sick exposure. ED Course: * Afebrile, BP 243/149, HR 102, RR 22, satting 88% ORA, improved to 97% on 2 L NC. * CBC relatively unchanged from yesterday with Hgb 11.1, WBC 11.4. Normal coag panel. * CMP remarkable for potassium 2.8, slightly worsening renal function since yesterday with creatinine 2.4, BUN 25 and GFR 28, LFTs relatively unchanged with AST 47, ALT 51, ALP 128. * Troponin slightly higher at 0.140 (remains asymptomatic without chest pain). * BNP significantly higher from yesterday at 868 (previously 163). * TSH 5.76, lactic acid pending but was normal yesterday. * UA negative for UTI. * EKG unchanged showed sinus tachycardia without acute ST changes. * CXR showed mild heart failure, no pneumonia. * Rapid COVID test was positive yesterday. Reason for admission: Presented with signs and symptoms of CHF exacerbation associated with hypertensive emergency. Likely has undiagnosed heart failure, exacerbated in settings of active COVID infection. He has multiple risk factors for heart disease including obesity, polysubstance abuse, likely chronic uncontrolled hypertension. He will be admitted for aggressive diuresis and cardiac optimization. Exam Vital Signs Temp Pulse Resp BP Pulse Ox O2 Del Method 98.2 F 91 24 H 236/119 H 91 L Room Air 10/31/24 18:20 10/31/24 20:29 10/31/24 18:55 10/31/24 20:29 10/31/24 18:55 10/31/24 18:55 Narrative Exam GENERAL * Obese male, on 2 L NC, satting well. HEENT * NCAT.?JOLLY. Oral mucosa is moist. Patent Nares NECK * Supple, nontender, no JVD. CHEST * Tachycardia, regular rhythm, no m/g/r * Possible crackles bilaterally, difficult exam 2/2 body habitus, no wheezing ABDOMEN * Soft, flat, nontender. No guarding/rebound tenderness/masses. * Bowel sounds presents EXTREMITIES * 3+ bilateral lower extremity edema. SKIN * Warm and dry, no jaundice/rashes. NEUROMUSCULAR * No lumbar or midline, no CVA, no paraspinal muscle spasm or tenderness. * Moves all 4 extremities well, with full ROM and good CSM. * SIN x4, CN II-XII grossly intact. * No focal neurologic deficits. PSYCHIATRY * Normal mood and affect, cooperative, no SI or HI or hallucinations. Results: Labs 10/31/24 16:50 10/31/24 16:50 Labs: Short CBC 10/31/24 Range/Units 16:50 WBC 11.4 H (3.8-10.6) Thou/mm3 Hgb 11.1 L (13.5-16.0) g/dL Hct 36.0 L (41.0-53.0) % Plt Count 304 (140-440) Thou/mm3 BMP 10/31/24 16:50 Sodium 142 Potassium 2.8 L Chloride 100 Carbon Dioxide 28.7 BUN 25 H Creatinine 2.7 H Glucose 107 H Calcium 9.8 Cardiac Enzymes 10/31/24 Range/Units 16:50 Troponin I 0.140 H* (0.0-0.045) ng/mL Liver Function 10/31/24 Range/Units 16:50 Total Bilirubin 1.0 (0.3-1.2) mg/dL AST 47 H (0-34) U/L ALT 51 H (10-49) U/L Alkaline Phosphatase 128 H (46-116) U/L Albumin 4.0 (3.5-5.0) gm/dL Urine 10/31/24 Range/Units 20:44 Urine Color Colorless A (Lt Yel-Yel) Urine Clarity Clear (Clear/Hazy) Urine pH 7.0 (5.0-7.0) Ur Specific [place] 1.007 (1.001-1.035) Urine Protein Trace (Neg - Trace) Urine Glucose (UA) Negative (Negative) Quality Measures Quality Measures none Medications Home Medications and Allergies Allergies Allergy/AdvReac Type Severity Reaction Status Date / Time No Known Allergies Allergy Verified 10/31/24 16:07 Visit Medications Acetaminophen (Acetaminophen 325 Mg Tablet) 650 mg PO Q6H PRN PRN Reason: PAIN SCALE 1-3 (mild Stop: 11/30/24 21:48 Acetaminophen (Acetaminophen 325 Mg Tablet) 650 mg PO Q6H PRN PRN Reason: Fever >100.4 Stop: 11/30/24 21:48 Hydrocodone Bitart/Acetaminophen (Hydrocodone/Apap 10/325 Tab) 1 tab PO Q4HR PRN PRN Reason: PAIN SCALE 7-10 (Severe Stop: 11/05/24 21:48 Albuterol/Ipratropium (Albuterol/Ipratropium (Duoneb) Rt Estefani 3 Ml Nebu) 3 ml INH Q6HRRT [facility] Stop: 12/01/24 00:59 Bumetanide (Bumetanide Inj 0.25 Mg/Ml Vial 4 Ml) 2 mg IVP QDAY [facility] Stop: 12/01/24 08:59 Furosemide (Furosemide Inj 10 Mg/Ml 4ml Vial) 40 mg IVP X1 ONE Stop: 10/31/24 21:54 Heparin Sodium (Porcine) (Heparin Sod Inj 5000 Unit/Ml Vial) 5,000 unit SC BID [facility] Stop: 11/15/24 08:59 Magnesium Sulfate (Magnesium Sulfate Ivpb) 2 gm in 50 mls @ 25 mls/hr IV X1 ONE Stop: 10/31/24 23:48 Nicotine (Nicotine Patch 21 Mg/24 Hr Patch.Td24) 21 mg TOP QDAY [facility] Stop: 11/30/24 21:54 Ondansetron HCl (Ondansetron Inj 2 Mg/Ml Inj 2 Ml) 4 mg IVP Q6H PRN; Protocol PRN Reason: NAUSEA OR VOMITING Stop: 11/30/24 21:48 Oxycodone/Acetaminophen (Oxycodone/Apap 5/325 Tablet) 1 tab PO Q6H PRN PRN Reason: PAIN SCALE 4-6 (Moderate Stop: 11/05/24 21:48 Pantoprazole Sodium (Pantoprazole Inj 40 Mg Vial) 40 mg IVP QDAY [facility] Stop: 12/01/24 08:59 Potassium Chloride (Potassium Chloride 20 Meq Tabcr) 40 meq PO X1 ONE Stop: 10/31/24 21:50 Discontinued Medications Furosemide (Furosemide Inj 10 Mg/Ml 4ml Vial) 40 mg IVP X1 ONE Stop: 10/31/24 16:41 Last Admin: 10/31/24 18:08 Dose: 40 mg Labetalol HCl (Labetalol Inj 5 Mg/Ml Vial 20 Ml) 10 mg IVP X1 ONE Stop: 10/31/24 16:41 Last Admin: 10/31/24 18:08 Dose: 10 mg Labetalol HCl (Labetalol Inj 5 Mg/Ml Vial 20 Ml) 10 mg IVP X1 ONE Stop: 10/31/24 19:44 Last Admin: 10/31/24 20:29 Dose: 10 mg Midazolam HCl (Midazolam Inj 1 Mg/Ml Vial 2 Ml) 2 mg IVP X1 ONE Stop: 10/31/24 19:44 Last Admin: 10/31/24 20:30 Dose: 2 mg Potassium Chloride (Potassium Chloride 20 Meq Tabcr) 40 meq PO X1 ONE Stop: 10/31/24 20:21 Last Admin: 10/31/24 20:29 Dose: 40 meq Assessment & Plan Assessment This is a 49-year-old male with past medical history of gout, and polysubstance use disorder, admitted for acute hypoxemic respiratory failure likely in setting of CHF exacerbation, hypertensive emergency and COVID-pneumonia. Acute hypoxemic respiratory failure New onset CHF NYHA Class III heart failure COVID PNA Presenting with several months of gradually worsening exertional dyspnea, lower extremity swelling, PND, and orthopnea. Symptoms suggestive of CHF exacerbation, likely in the onset of COVID illness. Labs significant for elevated BNP. Exam showed significant volume overload with 3+ lower extremity edema bilaterally. Has multiple risk factors for CHF including polysubstance use disorder. ED gave LASIX 40 mg x 1. ? Started BUMEX 2 mg daily ? Pending echocardiogram ? Pending lower extremity Doppler ? Strict JOSE MARIA's, fluid restrictions, cardiac diet ? Maintain K>4.0 and Mag>2.0 Hypertensive emergency Sinus tachycardia (resolved) Presented with BP 243/49 and HR 102. Likely in settings of volume overload. Did not improve with LABETALOL x 2 and AMLODIPINE x 1. ? Anticipate improvement with diuresis ? Given NIFEDIPINE 10 mg x 1 ? LABETALOL board for target sBP less than 170 COIVD positive Minimal symptoms. ? Continue monitoring NSTEMI type II Likely has NSTEMI type II in settings of demand ischemia with elevated troponin 0.14 and EKG showing sinus tachycardia without acute ST changes. Denies chest pain at this point. HARINDER No known history of CKD, unknown Cr/ eGFR baseline Creatinine 2.7 on admission, slightly worse than yesterday. GFR 28, BUN 25. No previous baseline. Either renal hypoperfusion in settings of CHF or hypertensive nephrosclerosis. ? Pending urine sodium ? Monitor renal function closely while diuresing ? Renally dose meds, avoid overdiuresis and NEPHROTOXINS ? Daily CMP Acute transaminitis Possible congestive hepatopathy ? Pending HEP panel Electrolyte abnormalities Replete as needed Polysubstance use disorder NICOTINE patch daily Case was discussed with attending physician, Dr. Stark. Matilde Henson, DO PGY II This document was transcribed using voice recognition technology. Minor inaccuracies may be present. Plan After examination of the patient and review of the clinical data I feel that this patient needs admission to the hospital for further treatment/evaluation. I Elijah Stark MD, attest that I was physically present for sheridan portions of evaluation, and examined patient, labs and imagings and plan of care were discussed with IM residents team, and I agree with the findings and plans documented above.
--- NOTE | 2024-10-31 22:21 | XR_ITS ---
Examination: Venous duplex lower extremity sonogram, bilateral. Date and time of exam: November 01, 2024, 0036 hrs. Indications: Bilateral leg swelling and pain one month. Technique: Multiple sonographic images of the deep venous system have been obtained. B-mode/2-D grayscale imaging of vascular structures and Doppler spectral analysis (waveforms) and color performed Both legs are examined. Findings: Deep venous systems do not demonstrate abnormal echogenicity. All visualized deep veins exhibit compressibility. All visualized deep veins exhibit augmentation. Impression: Negative for deep vein thrombosis
[2024-10-31 22:35] LABS: Lactate (Lactic Acid) 1.0 mMol/L (0.4-2.0)
[2024-10-31] MEDS: Magnesium Sulfate 2 GM Ivpb 2 GM/50 ML BAG IV (23:13)
[2024-10-31] MEDS: BUMETANIDE INJ 0.25 MG/ML VIAL 4 ML 2 MG IVP (23:14)
[2024-11-01] VITALS (25 sets, daily range): BP systolic 149–231; BP diastolic 34–151; PULSE 80–98; RESP 12–25; TEMP 36.3–36.8; O2SAT 93–100; BMI 22.4
[2024-11-01] MEDS: ALBUTEROL/IPRATROPIUM (Duoneb) RT SOL 3 ML NEBU INH ×2 (01:17→06:59)
[2024-11-01 01:27] LABS: Sodium,Urine Random 130.0 mMol/L (20.0-110.0)
--- NOTE | 2024-11-01 02:05 | PRELIM_ITS ---
Bilateral lower extremity venous Doppler ultrasound. November 01, 2024 at 0036 hours Clinical history: Lower extremity edema bilaterally. Findings: Gamble scale, color flow and spectral Doppler evaluation of the lower extremity deep veins was performed. Right: The common femoral, saphenofemoral junction, great saphenous vein, superficial femoral and popliteal veins are patent and compressible. Normal respiratory variation and augmentation are noted. The posterior tibial and peroneal veins are patent and compressible. Left: The common femoral, saphenofemoral junction, great saphenous vein, superficial femoral and popliteal veins are patent and compressible. Normal respiratory variation and augmentation are noted. The posterior tibial and peroneal veins are patent and compressible. Impression: No evidence of deep venous thrombosis in both lower extremities. Report Electronically Signed By: Issa Murphy 11/01/2024 2:04:34 AM [EST]
[2024-11-01] MEDS: LABETALOL INJ 5 MG/ML VIAL 20 ML 10 MG IVP ×4 (05:32→22:29)
[2024-11-01 06:14] LABS: Basophils # (Auto) 0.1 Thou/mm3 (0.0-0.2); Basophils % (Auto) 1 % (0-2.5); Eosinophils # (Auto) 0.1 Thou/mm3 (0.0-0.5); Eosinophils % (Auto) 1 % (0-10); Hematocrit 36.9 % (41.0-53.0); Hemoglobin 11.5 g/dL (13.5-16.0); Immature Granulocytes Auto 0.03 Thou/mm3 (0.00-0.00); Lymphocytes # (Auto) 1.3 Thou/mm3 (1.0-4.8); Lymphocytes % (Auto) 13 % (10-50); Mean Corpuscular HGB Conc 31.2 g/dl (31.0-37.0); Mean Corpuscular Hemoglobin 25.2 pg (25.0-35.0); Mean Corpuscular Volume 81 fL (80-100); Monocytes # (Auto) 0.8 Thou/mm3 (0.0-0.8); Monocytes % (Auto) 8 % (0-12); Neutrophils # (Auto) 7.5 Thou/mm3 (1.8-7.7); Neutrophils % (Auto) 76 % (37-80); Nucleated Red Blood Cell # 0.00 Thou/mm3 (0.00-0.00); Nucleated Red Blood Cell % 0 /100 WBC (0); Platelet Count 297 Thou/mm3 (140-440); RDW Standard Deviation 49.6 fL (35.1-43.9); Red Blood Count 4.57 Miln/mm3 (4.50-5.90); White Blood Count 9.9 Thou/mm3 (3.8-10.6)
[2024-11-01 06:45] LABS: Alanine Aminotransferase 44 U/L (10-49); Albumin, Serum 4.0 gm/dL (3.5-5.0); Albumin/Globulin Ratio 1.5 (1.2-2.2); Alkaline Phosphatase 121 U/L (46-116); Anion Gap 12 (7-16); Aspartate Amino Transferase 36 U/L (0-34); BUN/Creatinine Ratio 10 Ratio (12-20); Bilirubin,Total 1.0 mg/dL (0.3-1.2); Blood Urea Nitrogen 24 mg/dL (9-23); Calcium 9.9 mg/dL (8.3-10.6); Calcium (Corrected) 9.9 mg/dL (8.5-10.1); Carbon Dioxide 34.7 mMol/L (20.0-31.0); Cardiac Risk Estimate 4.4 RATIO (4.0-6.7); Chloride 98 mMol/L (98-107); Cholesterol 160 mg/dL (132-200); Creatinine (Component) 2.5 mg/dL (0.6-1.3); Estimated Creatinine Clearance 40.6 mL/min (>60); Free T4 (Free Thyroxine) 1.32 ng/dL (0.89-1.76); Globulin 2.6 gm/dL (2.3-3.5); Glucose 98 mg/dL (74-106); HDL Cholesterol 36 mg/dL (40-60); LDL Cholesterol,Calculated 111 mg/dL (0-130); Magnesium 2.0 mg/dL (1.6-2.6); Osmolality,Calculated 292 (275-295); Phosphorous 4.1 mg/dL (2.4-5.1); Potassium 3.0 mMol/L (3.4-5.1); Sodium 145 mMol/L (136-145); Total Protein 6.6 gm/dL (5.7-8.2); Triglycerides 64 mg/dL (30-150); eGFR 31 See Note
[2024-11-01 07:05] LABS: Troponin I 0.141 ng/mL (0.0-0.045)
--- NOTE | 2024-11-01 08:24 | CHAP ---
Responded to Rapid Response (09:24). No family present. 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
--- NOTE | 2024-11-01 08:42 | EKG_ITS ---
[facility] Test Date: 2024-11-01 Pat Name: RAHEEL PENA Department: Room: S274A Gender: Male Credit Analysis Manager: CHENTE : [id number] Requested By: Richy Hemphill Order Number: [id number] Reading MD: Richy Hemphill Measurements Intervals [place] Rate: 71 P: -13 OR: 164 QRS: -39 QRSD: 128 T: 155 QT: 478 QTc: 520 Interpretive Statements SINUS RHYTHM LEFT ATRIAL ENLARGEMENT MARKED LEFT AXIS DEVIATION LEFT VENTRICULAR HYPERTROPHY AND ST-T CHANGE Compared to ECG 10/31/2024 16:44:25 Atrial abnormality now present Sinus tachycardia no longer present ST (T wave) deviation still present /store/S0/[id number]
[2024-11-01] MEDS: BUMETANIDE INJ 0.25 MG/ML VIAL 4 ML 2 MG IVP ×2 (08:47→20:36)
[2024-11-01] MEDS: HEPARIN SOD INJ 5000 UNIT/ML VIAL SC ×2 (08:47→20:36)
[2024-11-01] MEDS: NICOTINE PATCH 21 MG/24 HR PATCH.TD24 TOP (08:48)
[2024-11-01] MEDS: POTASSIUM CHL 10 mEq IVPB 100 ML 100 MEQ IV (09:07)
[2024-11-01] MEDS: POTASSIUM CHL 10 mEq IVPB 100 ML 75 MEQ IV ×3 (10:27→13:05)
[2024-11-01] MEDS: NIFEdipine XL 30 MG TABCR PO (12:35)
[2024-11-01] MEDS: BUMETANIDE INJ 0.25 MG/ML VIAL 4 ML 1 MG IVP (12:36)
--- NOTE | 2024-11-01 13:04 | PD.RESCONSUL ---
HPI Data of Consult Requesting Physician: Huang Sylvester MD Admitting Provider: Elijah Stark MD Attending Provider: Huang Sylvester MD Primary Care Provider: Physician No Primary/Family Consult Narrative Reason for consult: Suspicion of new onset HF History of present illness: Ziggy Navarro is a 41-year-old male past medical tree significant for gout and methamphetamine dependence, presented to [facility] ED on 11/01 for worsening shortness of breath, orthopnea, PND, and significant leg swelling. During interview, patient is alert and oriented x 1 only to person and is unable to provide history, stating that he feels off and unable to describe further. Per chart review, patient reports that the symptoms have been increasing in severity over the past 3 months. In ED, patient tested positive for COVID. Patient seen and examined at bedside. Patient is alert and oriented x 1 only to person unable to provide any history whatsoever, which seems to be new as patient was able to provide history during ED visit yesterday. Patient unable to determine whether he has chest pain, shortness of breath, family history of cardiac or disease. Shortly after rapid called for confusion, likely methamphetamine intoxication as patient was also throwing telemetry box across the room. cc:: cc: Huang Sylvester MD Review of Systems Review of Systems ROS Unobtainable: unobtainable due to mental status Exam Vital Signs Temp Pulse Resp BP Pulse Ox O2 Del Method O2 Flow Rate 97.6 F 83 16 183/112 H 100 Room Air 3 11/01/24 08:00 11/01/24 12:36 11/01/24 08:00 11/01/24 12:36 11/01/24 08:00 11/01/24 08:00 11/01/24 07:01 Narrative Exam GENERAL: AOx1 to person only, agitated, confused HEENT: NC/AT, mucous membranes moist, bilateral sclera anicteric CARDIOVASCULAR: regular rate and rhythm, S1/S2 present, no murmurs appreciated PULMONARY: clear to auscultation bilaterally, no rales/rhonchi/wheezes ABDOMINAL: soft, non-tender, non-distended, no rebound/guarding, bowel sounds present EXTREMITIES: 3+ BLE pitting edema SKIN: warm and dry, intact, no rashes NEURO: CN II-XII grossly intact, no focal deficits, following commands Results Labs 11/02/24 04:32 11/02/24 04:32 Labs: Short CBC 10/31/24 11/01/24 Range/Units 16:50 05:56 WBC 11.4 H 9.9 (3.8-10.6) Thou/mm3 Hgb 11.1 L 11.5 L (13.5-16.0) g/dL Hct 36.0 L 36.9 L (41.0-53.0) % Plt Count 304 297 (140-440) Thou/mm3 BMP 10/31/24 11/01/24 16:50 05:56 Sodium 142 145 Potassium 2.8 L 3.0 L Chloride 100 98 Carbon Dioxide 28.7 34.7 H BUN 25 H 24 H Creatinine 2.7 H 2.5 H Glucose 107 H 98 Calcium 9.8 9.9 Cardiac Enzymes 10/31/24 11/01/24 Range/Units 16:50 05:56 Troponin I 0.140 H* 0.141 H* (0.0-0.045) ng/mL Liver Function 10/31/24 11/01/24 Range/Units 16:50 05:56 Total Bilirubin 1.0 1.0 (0.3-1.2) mg/dL AST 47 H 36 H (0-34) U/L ALT 51 H 44 (10-49) U/L Alkaline Phosphatase 128 H 121 H (46-116) U/L Albumin 4.0 4.0 (3.5-5.0) gm/dL Urine 10/31/24 Range/Units 20:44 Urine Color Colorless A (Lt Yel-Yel) Urine Clarity Clear (Clear/Hazy) Urine pH 7.0 (5.0-7.0) Ur Specific [place] 1.007 (1.001-1.035) Urine Protein Trace (Neg - Trace) Urine Glucose (UA) Negative (Negative) Quality Measures Quality Measures none Medications Home Medications and Allergies Home Medications ?Medication ?Instructions ?Recorded ?Confirmed ?Type No Known Home Medications 11/02/24 11/02/24 History Allergies Allergy/AdvReac Type Severity Reaction Status Date / Time No Known Allergies Allergy Verified 10/31/24 16:07 Visit Medications Acetaminophen (Acetaminophen 325 Mg Tablet) 650 mg PO Q6H PRN PRN Reason: PAIN SCALE 1-3 (mild Stop: 11/30/24 21:48 Acetaminophen (Acetaminophen 325 Mg Tablet) 650 mg PO Q6H PRN PRN Reason: Fever >100.4 Stop: 11/30/24 21:48 Hydrocodone Bitart/Acetaminophen (Hydrocodone/Apap 10/325 Tab) 1 tab PO Q4HR PRN PRN Reason: PAIN SCALE 7-10 (Severe Stop: 11/05/24 21:48 Budesonide (Budesonide Rt 0.5 Mg/2 Ml Nebu) 1 mg INH BIDRT [facility] Stop: 12/01/24 10:44 Last Admin: 11/01/24 12:12 Dose: Not Given Bumetanide (Bumetanide Inj 0.25 Mg/Ml Vial 4 Ml) 2 mg IVP BIDD [facility] Stop: 12/01/24 20:59 Heparin Sodium (Porcine) (Heparin Sod Inj 5000 Unit/Ml Vial) 5,000 unit SC BID [facility] Stop: 11/15/24 08:59 Last Admin: 11/01/24 08:47 Dose: 5,000 unit Labetalol HCl (Labetalol Inj 5 Mg/Ml Vial 20 Ml) 10 mg IVP Q4H PRN PRN Reason: SBP >165 Stop: 12/01/24 10:46 Midazolam HCl (Midazolam Inj 1 Mg/Ml Vial 2 Ml) 2 mg IVP X1 PRN PRN Reason: AGITATION OR ANXIETY Stop: 11/05/24 22:30 Nicotine (Nicotine Patch 21 Mg/24 Hr Patch.Td24) 21 mg TOP QDAY [facility] Stop: 11/30/24 21:54 Last Admin: 11/01/24 08:48 Dose: 21 mg Nifedipine (Nifedipine Xl 30 Mg Tabcr) 30 mg PO QDAY [facility] Stop: 12/01/24 11:39 Last Admin: 11/01/24 12:35 Dose: 30 mg Ondansetron HCl (Ondansetron Inj 2 Mg/Ml Inj 2 Ml) 4 mg IVP Q6H PRN; Protocol PRN Reason: NAUSEA OR VOMITING Stop: 11/30/24 21:48 Oxycodone/Acetaminophen (Oxycodone/Apap 5/325 Tablet) 1 tab PO Q6H PRN PRN Reason: PAIN SCALE 4-6 (Moderate Stop: 11/05/24 21:48 Pantoprazole Sodium (Pantoprazole Inj 40 Mg Vial) 40 mg IVP QDAY [facility] Stop: 12/01/24 08:59 Last Admin: 11/01/24 08:51 Dose: 40 mg Discontinued Medications Albuterol/Ipratropium (Albuterol/Ipratropium (Duoneb) Rt Estefani 3 Ml Nebu) 3 ml INH Q6HRRT [facility] Stop: 12/01/24 00:59 Last Admin: 11/01/24 06:59 Dose: 3 ml Amlodipine Besylate (Amlodipine Besylate 5 Mg Tablet) 5 mg PO X1 ONE Stop: 10/31/24 22:18 Last Admin: 10/31/24 23:14 Dose: 5 mg Bumetanide (Bumetanide Inj 0.25 Mg/Ml Vial 4 Ml) 2 mg IVP QDAY [facility] Stop: 12/01/24 08:59 Bumetanide (Bumetanide Inj 0.25 Mg/Ml Vial 4 Ml) 2 mg IVP QDAY [facility] Stop: 11/30/24 22:14 Last Admin: 11/01/24 08:47 Dose: 2 mg Bumetanide (Bumetanide Inj 0.25 Mg/Ml Vial 4 Ml) 1 mg IVP X1 ONE Stop: 11/01/24 11:43 Last Admin: 11/01/24 12:36 Dose: 1 mg Furosemide (Furosemide Inj 10 Mg/Ml 4ml Vial) 40 mg IVP X1 ONE Stop: 10/31/24 16:41 Last Admin: 10/31/24 18:08 Dose: 40 mg Furosemide (Furosemide Inj 10 Mg/Ml 4ml Vial) 40 mg IVP X1 ONE Stop: 10/31/24 21:54 Last Admin: 10/31/24 23:09 Dose: Not Given Magnesium Sulfate (Magnesium Sulfate Ivpb) 2 gm in 50 mls @ 25 mls/hr IV X1 ONE Stop: 10/31/24 23:48 Last Infusion: 11/01/24 01:19 Dose: Infused Potassium Chloride (Kcl Ivpb) 100 mls @ 100 mls/hr IV Q1H [facility] Stop: 11/01/24 12:59 Last Admin: 11/01/24 11:33 Dose: 75 mls/hr Labetalol HCl (Labetalol Inj 5 Mg/Ml Vial 20 Ml) 10 mg IVP X1 ONE Stop: 10/31/24 16:41 Last Admin: 10/31/24 18:08 Dose: 10 mg Labetalol HCl (Labetalol Inj 5 Mg/Ml Vial 20 Ml) 10 mg IVP X1 ONE Stop: 10/31/24 19:44 Last Admin: 10/31/24 20:29 Dose: 10 mg Labetalol HCl (Labetalol Inj 5 Mg/Ml Vial 20 Ml) 10 mg IVP Q2H PRN PRN Reason: SBP>170 Stop: 12/01/24 00:18 Last Admin: 11/01/24 08:46 Dose: 10 mg Labetalol HCl (Labetalol Inj 5 Mg/Ml Vial 20 Ml) 10 mg IVP Q2H PRN PRN Reason: SBP>160 Stop: 12/01/24 00:18 Midazolam HCl (Midazolam Inj 1 Mg/Ml Vial 2 Ml) 2 mg IVP X1 ONE Stop: 10/31/24 19:44 Last Admin: 10/31/24 20:30 Dose: 2 mg Nifedipine (Nifedipine 10 Mg Capsule) 10 mg PO X1 ONE Stop: 11/01/24 00:12 Last Admin: 11/01/24 00:19 Dose: 10 mg Nifedipine (Nifedipine 10 Mg Capsule) 10 mg PO X1 ONE Stop: 11/01/24 06:30 Last Admin: 11/01/24 06:39 Dose: 10 mg Nifedipine (Nifedipine Xl 30 Mg Tabcr) 60 mg PO QDAY [facility] Stop: 12/01/24 11:44 Potassium Chloride (Potassium Chloride 20 Meq Tabcr) 40 meq PO X1 ONE Stop: 10/31/24 20:21 Last Admin: 10/31/24 20:29 Dose: 40 meq Potassium Chloride (Potassium Chloride 20 Meq Tabcr) 40 meq PO X1 ONE Stop: 10/31/24 21:50 Last Admin: 10/31/24 23:14 Dose: 40 meq Assessment & Plan Plan Ziggy Navarro 49M pmhx of gout and methamphetamine dependence presented to [facility] ED on 11/01 for worsening shortness of breath on minimal exertion, orthopnea, PND, and significant leg swelling. Cardiology was consulted for suspected new onset heart failure likely secondary to methamphetamine use. #Suspicion of new onset acute heart failure #NSTEMI, type I vs type II On exam, patient is unable to report whether he has history of heart failure or any heart disease in his family. Alert and oriented only x 1 to person. Very poor historian due to mental status. Admission BNP 868, increased from 9/3 163, likely increased from continued methamphetamine use with underlying heart failure exacerbation. Troponins 0.135->0.119->0.140->0.141. NSTEMI likely type II due to methamphetamine use and fluid overload from likely acute new onset heart failure. However type I cannot be ruled out due to unknown cardiac history, unknown family history and current illict drug use. Ddx: Likely dilated heart failure secondary to chronic methamphetamine use vs heart failure 2/2 ischemic damage from illicit substance use Plan: - Telemetry for cardiac monitoring - Continue IV Bumex 2 mg BID - F/u stat echocardiogram - Keep K>4 and Mg>2 at all times #Hypertensive emergency On admission BP 243/149 HR 102 with likely HARINDER, although baseline is unknown and patient is not able to communicate whether he has kidney disease due to mental status. Plan: - Recommend to start carvedilol 6.25 mg BID and amlodipine 25 mg QD #COVID PNA #HARINDER #Acute transaminitis #Nicotine dependence #Methamphetamine dependence Above management per primary team Plan of care discussed with attending Dr. Ferrara, back shoe worker. Eulalia Haynes, DO PGY-1 Internal Medicine Attending Provider Attestation/Addendum I have personally seen and examined the patient separately on the above date of service and discussed the plan of care with the resident. I reviewed the resident Dr.Emily Haynes consultation progress note and agree with the resident findings and plan in the note above and have also edited the documentation to reflect my findings and plan. Patient then still appears to be altered and in the effect of the medication and has history of significant methamphetamine use and last use was just before his went to see his primary care doctor we will send him to the emergency department. Has history of chronic methamphetamine abuse. His overall clinical picture appears to have CHF exacerbation and will obtain an echocardiogram for further evaluation of systolic versus diastolic versus combined heart failure. Patient denies any Chest pain chest pressure or shortness of breath at the present point of time. He is completely altered and unable to provide proper history. His troponin elevation is up to 0.135 and 0.14 from an essentially flat. Mostly NSTEMI type II in the setting of heart failure along with history of drug abuse and elevated creatinine -acute kidney injury versus acute on chronic kidney disease stage IIIa 2.5. Mostly secondary to supply/demand mismatch and echo ordered to rule out any regional wall motion abnormalities. No other further inpatient ischemic workup required for the patient. Blood pressure was elevated significantly with a systolic up to 240 mmHg and recommended to start the patient on Coreg 6.25 mg twice daily for now there is no history of cocaine abuse and then also amlodipine 10 mg once daily and uptitrate the medications based on the blood pressure. Hold off on the losartan at present moment as patient will need room for IV diuresis and to avoid traditional acute kidney injury and creatinine is already 2.5. Patient counseled to quit methamphetamine drug abuse completely for him to be eligible for any kind of advanced heart failure treatments. Patient should follow-up with the primary care doctor and recommended to follow-up with cardiology as outpatient if patient quit drug abuse and has been negative urine toxicology for the next few months. Jameson Ferrara M.D. Interventional Cardiology
--- NOTE | 2024-11-01 13:44 | ESPR_ITS ---
<Statement entered by Huang Sylvester MD - 11/07/24 07:13> I reviewed above note and agree with findings and plans. I have also personally examined the patient with medicine team and went over assessment and plan with medical team including video production intern and resident physician. <Statement entered by Mal Graff MD - 11/03/24 07:04> Patient examined and case discussed with the team including attending physician. Note reviewed, I agree with the care plan as documented. Please refer to the note below for further details. - Mal Graff MD, PGY 3 Disclaimer: The document may contain phonetic/typographic errors due to voice recognition software. These errors are purely due to imperfections in the software program. Documentation for date of: 11/01/24 Subjective Subjective Interval history: Patient seen sitting in his bed comfortably, and evaluated. He is not well oriented about his medical condition and hospital stay, though he knows his identity and where he is found at, but cannot answer detailed questions about these topics. U-Tox was positive for methamphetamine and it is likely the patient is still under the effect. His shortness of breath is improved on 3L via NC. He had reported worsening SOB, inability to walk more than 50 feet without taking breaks, inability to lie flat without becoming short of breath, and paroxysmal nocturnal dyspne. Denies fever, chills, ROJAS, chest pain, productive cough, abdominal pain, N/V/D, or dysuria. Exam Vital Signs Temp Pulse Resp BP Pulse Ox O2 Del Method O2 Flow Rate 97.6 F 83 16 183/112 H 100 Room Air 3 11/01/24 08:00 11/01/24 12:36 11/01/24 08:00 11/01/24 12:36 11/01/24 08:00 11/01/24 08:00 11/01/24 07:01 Narrative Exam GENERAL * Obese male, on 2 L NC, satting well. HEENT * NCAT. JOLLY. Oral mucosa is moist. Patent Nares NECK * Supple, nontender, no JVD. CHEST * Tachycardia, regular rhythm, no m/g/r * Possible crackles bilaterally, difficult exam 2/2 body habitus, no wheezing ABDOMEN * Soft, flat, nontender. No guarding/rebound tenderness/masses. * Bowel sounds presents EXTREMITIES * 3+ bilateral lower extremity edema. SKIN * Warm and dry, no jaundice/rashes. NEUROMUSCULAR * No lumbar or midline, no CVA, no paraspinal muscle spasm or tenderness. * Moves all 4 extremities well, with full ROM and good CSM. * SIN x4, CN II-XII grossly intact. * No focal neurologic deficits. PSYCHIATRY * Normal mood and affect, cooperative, no SI or HI or hallucinations. Objective Labs 11/01/24 05:56 11/01/24 13:02 Labs: Laboratory Results - last 24 hr 10/31/24 10/31/24 10/31/24 16:50 20:44 22:25 WBC 11.4 H RBC 4.48 L Hgb 11.1 L Hct 36.0 L MCV 80 MCH 24.8 L MCHC 30.8 L RDW Std Deviation 49.2 H Plt Count 304 Neut % (Auto) 80 Lymph % (Auto) 9 L Morrison % (Auto) 8 Eos % (Auto) 1 Baso % (Auto) 1 Neut # (Auto) 9.2 H Lymph # (Auto) 1.1 Morrison # (Auto) 0.9 H Eos # (Auto) 0.2 Baso # (Auto) 0.1 Immature Gran # (Auto) 0.04 H Absolute Nucleated RBC 0.00 Immature Gran % 0 Nucleated RBC % 0 PT 12.4 H INR 1.1 APTT 25.1 Sodium 142 Potassium 2.8 L Chloride 100 Carbon Dioxide 28.7 Anion Gap 13 BUN 25 H Creatinine 2.7 H Estim Creat Clear Calc 38.6 L eGFR 28 L BUN/Creatinine Ratio 9 L Glucose 107 H Calculated Osmolality 287 Lactic Acid 1.0 Calcium 9.8 Corrected Calcium 9.8 Phosphorus Magnesium Total Bilirubin 1.0 AST 47 H ALT 51 H Alkaline Phosphatase 128 H Troponin I 0.140 H* B-Natriuretic Peptide 868 H* Total Protein 6.5 Albumin 4.0 Globulin 2.5 Albumin/Globulin Ratio 1.6 Triglycerides Cholesterol LDL Cholesterol, Calc HDL Cholesterol Cholesterol/HDL Ratio Free T4 Ur Collection Type Clean Catch Urine Color Colorless A Urine Clarity Clear Urine pH 7.0 Ur Specific [place] 1.007 Urine Protein Trace Urine Glucose (UA) Negative Urine Ketones Negative Urine Blood Trace Urine Nitrite Negative Urine Bilirubin Negative Urine Urobilinogen (Auto) Negative Ur Leukocyte Esterase Negative Urine RBC 1 Urine WBC < 1 Ur Squamous Epith Cells 0 Urine Bacteria None Ur Culture Indicated? Not Indicated Ur Random Sodium 130.0 H 11/01/24 05:56 WBC 9.9 RBC 4.57 Hgb 11.5 L Hct 36.9 L MCV 81 MCH 25.2 MCHC 31.2 RDW Std Deviation 49.6 H Plt Count 297 Neut % (Auto) 76 Lymph % (Auto) 13 Morrison % (Auto) 8 Eos % (Auto) 1 Baso % (Auto) 1 Neut # (Auto) 7.5 Lymph # (Auto) 1.3 Morrison # (Auto) 0.8 Eos # (Auto) 0.1 Baso # (Auto) 0.1 Immature Gran # (Auto) 0.03 H Absolute Nucleated RBC 0.00 Immature Gran % 0 Nucleated RBC % 0 PT INR APTT Sodium 145 Potassium 3.0 L Chloride 98 Carbon Dioxide 34.7 H Anion Gap 12 BUN 24 H Creatinine 2.5 H Estim Creat Clear Calc 40.6 L eGFR 31 L BUN/Creatinine Ratio 10 L Glucose 98 Calculated Osmolality 292 Lactic Acid Calcium 9.9 Corrected Calcium 9.9 Phosphorus 4.1 Magnesium 2.0 Total Bilirubin 1.0 AST 36 H ALT 44 Alkaline Phosphatase 121 H Troponin I 0.141 H* B-Natriuretic Peptide Total Protein 6.6 Albumin 4.0 Globulin 2.6 Albumin/Globulin Ratio 1.5 Triglycerides 64 Cholesterol 160 LDL Cholesterol, Calc 111 HDL Cholesterol 36 L Cholesterol/HDL Ratio 4.4 Free T4 1.32 Ur Collection Type Urine Color Urine Clarity Urine pH Ur Specific [place] Urine Protein Urine Glucose (UA) Urine Ketones Urine Blood Urine Nitrite Urine Bilirubin Urine Urobilinogen (Auto) Ur Leukocyte Esterase Urine RBC Urine WBC Ur Squamous Epith Cells Urine Bacteria Ur Culture Indicated? Ur Random Sodium Quality Measures Quality Measures none Assessment & Plan Assessment Current Active Medications: Generic Name Dose Route Start Last Admin Trade Name Freq PRN Reason Stop Dose Admin Acetaminophen 650 mg 10/31/24 21:49 Acetaminophen 325 Mg Tablet PO 11/30/24 21:48 Q6H PRN PAIN SCALE 1-3 (mild Acetaminophen 650 mg 10/31/24 21:49 Acetaminophen 325 Mg Tablet PO 11/30/24 21:48 Q6H PRN Fever >100.4 Hydrocodone Bitart/Acetaminophen 1 tab 10/31/24 21:49 Hydrocodone/Apap 10/325 Tab PO 11/05/24 21:48 Q4HR PRN PAIN SCALE 7-10 (Severe Budesonide 1 mg 11/01/24 10:45 11/01/24 12:12 Budesonide Rt 0.5 Mg/2 Ml Nebu INH 12/01/24 10:44 Not Given BIDRT [facility] Bumetanide 2 mg 11/01/24 21:00 Bumetanide Inj 0.25 Mg/Ml Vial 4 Ml IVP 12/01/24 20:59 BIDD [facility] Heparin Sodium (Porcine) 5,000 unit 11/01/24 09:00 11/01/24 08:47 Heparin Sod Inj 5000 Unit/Ml Vial SC 11/15/24 08:59 5,000 unit BID [facility] Administration Labetalol HCl 10 mg 11/01/24 11:41 Labetalol Inj 5 Mg/Ml Vial 20 Ml IVP 12/01/24 10:46 Q4H PRN SBP >165 Midazolam HCl 2 mg 10/31/24 22:31 Midazolam Inj 1 Mg/Ml Vial 2 Ml IVP 11/05/24 22:30 X1 PRN AGITATION OR ANXIETY Nicotine 21 mg 10/31/24 21:55 11/01/24 08:48 Nicotine Patch 21 Mg/24 Hr Patch.Td24 TOP 11/30/24 21:54 21 mg QDAY [facility] Administration Nifedipine 30 mg 11/01/24 11:40 11/01/24 12:35 Nifedipine Xl 30 Mg Tabcr PO 12/01/24 11:39 30 mg QDAY [facility] Administration Ondansetron HCl 4 mg 10/31/24 21:49 Ondansetron Inj 2 Mg/Ml Inj 2 Ml IVP 11/30/24 21:48 Q6H PRN NAUSEA OR VOMITING Protocol Oxycodone/Acetaminophen 1 tab 10/31/24 21:49 Oxycodone/Apap 5/325 Tablet PO 11/05/24 21:48 Q6H PRN PAIN SCALE 4-6 (Moderate Pantoprazole Sodium 40 mg 11/01/24 09:00 11/01/24 08:51 Pantoprazole Inj 40 Mg Vial IVP 12/01/24 08:59 40 mg QDAY [facility] Administration Plan Assessment This is a 49-year-old male with past medical history of gout, and polysubstance use disorder, admitted for acute hypoxemic respiratory failure likely in setting of CHF exacerbation, hypertensive emergency and COVID-pneumonia. Acute hypoxemic respiratory failure New onset CHF NYHA Class III heart failure COVID PNA Presenting with several months of gradually worsening exertional dyspnea, lower extremity swelling, PND, and orthopnea. Symptoms suggestive of CHF exacerbation, likely in the onset of COVID illness. Labs significant for elevated BNP. Exam showed significant volume overload with 3+ lower extremity edema bilaterally. Has multiple risk factors for CHF including polysubstance use disorder. ED gave LASIX 40 mg x 1. Venous Doppler Study was negative for DVT ? BUMEX 2 mg bid ? Pending echocardiogram ? Strict JOSE MARIA's, fluid restrictions, cardiac diet ? Maintain K>4.0 and Mag>2.0 Hypertensive emergency Sinus tachycardia (resolved) Presented with BP 243/49 and HR 102. Likely in settings of volume overload. Did not improve with LABETALOL x 2 and AMLODIPINE x 1. Given NIFEDIPINE 10 mg x 1. - cardiology consulted, appreciate recs - start carvedilol 6.25 mg BID and Losartan 25 mg QD - anticipate improvement with diuresis ? LABETALOL board for target sBP less than 170 COIVD positive Minimal symptoms. ? Continue monitoring - dexamethasone 6mg QD NSTEMI type II Likely has NSTEMI type II in settings of demand ischemia with elevated troponin 0.14 and EKG showing sinus tachycardia without acute ST changes. Denies chest pain at this point. HARINDER No known history of CKD, unknown Cr/ eGFR baseline Creatinine 2.7 on admission, slightly worse than yesterday. GFR 28, BUN 25. No previous baseline. Either renal hypoperfusion in settings of CHF or hypertensive nephrosclerosis. U sodium 130 (H) ? Monitor renal function closely while diuresing ? Renally dose meds, avoid overdiuresis and NEPHROTOXINS ? Daily CMP Acute transaminitis Possible congestive hepatopathy AST 36, ALT 44, ALP 121 Electrolyte abnormalities Replete as needed Polysubstance use disorder NICOTINE patch daily Health Maintanence: Disposition: Telemetry, ADHF pending echocardiogram and improvement in respiratory and fluid status. PPx GI: IV Protonix 40mg PPx DVT: heparin subq Diet: Cardiac Code Status: full This case was discussed with my attending physician, Dr. Sylvester, and senior resident, Dr Graff. Richy Hemphill, DO PGY I
[2024-11-01 13:53] LABS: Albumin, Serum 4.0 gm/dL (3.5-5.0); Anion Gap 12 (7-16); BUN/Creatinine Ratio 8 Ratio (12-20); Blood Urea Nitrogen 21 mg/dL (9-23); Calcium 9.9 mg/dL (8.3-10.6); Calcium (Corrected) 9.9 mg/dL (8.5-10.1); Carbon Dioxide 31.8 mMol/L (20.0-31.0); Chloride 98 mMol/L (98-107); Creatinine (Component) 2.6 mg/dL (0.6-1.3); Estimated Creatinine Clearance 39.0 mL/min (>60); Glucose 129 mg/dL (74-106); Osmolality,Calculated 288 (275-295); Phosphorous 4.4 mg/dL (2.4-5.1); Potassium 3.2 mMol/L (3.4-5.1); Sodium 142 mMol/L (136-145); eGFR 29 See Note
--- NOTE | 2024-11-01 15:41 | PC.SS ---
Patient is alert/oriented. Patient resides with his brother. Admitted for dyspnea. Patient is covid positive. Patient is self pay status. Patient states he had [employer] last year. Patient was meth positive. SS discussed drug rehab options. Patient states he would be open to this. No alcohol history. Patient is unemployed. No income. No FS. Independent with ADL's. No DME. PCP: [facility]. Pharmacy: [facility]. Patient drives his own vehicle. Discharge plan: return home. Alt medical decision maker: Mother, Maryellen Lorenzana, transportation: [facility]
--- NOTE | 2024-11-01 16:47 | PC.PT ---
PT attempted to perform PT eval at 15:45. Patient BP was assessed in supine as: R UE 182/120mmHg, L UE 186/117mmHg. Patient has hypertension and is unsafe to work with PT at this time. Will re-attempt PT eval at another time. RN made aware.
[2024-11-01] MEDS: POTASSIUM CHL 10 mEq IVPB 10 MEQ/100 ML BAG 50 MEQ IV ×3 (17:55→22:46)
[2024-11-01] MEDS: MIDAZOLAM INJ 1 MG/ML VIAL 2 ML 2 MG IVP (17:55)
[2024-11-01] MEDS: Magnesium Sulfate 4 GM Ivpb 4 GM/50 ML BAG IV (17:56)
[2024-11-01] MEDS: BUDESONIDE RT 0.5 MG/2 ML NEBU 1 MG INH (19:17)
--- NOTE | 2024-11-01 20:51 | PC.NURSE ---
Addendum entered by Alannah Moreno RN 11/02/24 03:54: correction- ordered coreg 3.125 mg PO X1 not coreg 0.125mg PO X1. Original Note: spoke to MD Stark about patient has already received 4 bags of potassium and has 8 more bags ordered to give at a rate of 50 ml/hr with total of 12 bags, md stated continue to give. md aware of patient BP 188/134 and was given bumex at 1999. ordered coreg 0.125 mg x1 PO and changed parameter of labetalol prn to sbp >200
--- NOTE | 2024-11-01 22:16 | EVENTNT_ITS ---
<Statement entered by Mal Graff MD - 11/03/24 07:04> Patient examined and case discussed with the team including attending physician. Note reviewed, I agree with the care plan as documented. Please refer to the event note below for further details. - Mal Graff MD, PGY 3 Disclaimer: The document may contain phonetic/typographic errors due to voice recognition software. These errors are purely due to imperfections in the software program. Documentation for date of: 11/01/24 Event Note Event Note: Rapid response was called at 8: 55 by the patient's nurse with the concern of the patient making incomprehensible voices, mumbling. Patient was found to be conversant when providers responded to the rapid but not fully aware of his identity, medical condition, or his location. This was unchanged from yesterday when the patient had presented to the ED confused and with shortness of breath. UTOX was positive for methamphetamine, patient most likely still under the effect of the medication. Neurological exam was otherwise unremarkable. Vitals notable for BP 180/100 only. EKG demonstrated normal sinus rhythm. Patient was monitored closely subsequently and electrolytes were repleted with magnesium 4 g and potassium 80 mEq per cardiology recommendations.
[2024-11-01] MEDS: hydrALAZINE INJ 20 MG/ML VIAL IVP (23:14)
[2024-11-02] VITALS (20 sets, daily range): BP systolic 165–216; BP diastolic 82–124; PULSE 71–95; RESP 15–27; TEMP 36.2–36.6; O2SAT 92–100; BMI 32.5
[2024-11-02] MEDS: POTASSIUM CHL 10 mEq IVPB 10 MEQ/100 ML BAG 50 MEQ IV ×3 (00:49→04:53)
[2024-11-02] MEDS: BUMETANIDE INJ 0.25 MG/ML VIAL 4 ML 2 MG IVP ×2 (05:06→18:43)
[2024-11-02 05:41] LABS: Basophils # (Auto) 0.0 Thou/mm3 (0.0-0.2); Basophils % (Auto) 0 % (0-2.5); Eosinophils # (Auto) 0.0 Thou/mm3 (0.0-0.5); Eosinophils % (Auto) 0 % (0-10); Hematocrit 40.3 % (41.0-53.0); Hemoglobin 12.6 g/dL (13.5-16.0); Immature Granulocytes Auto 0.03 Thou/mm3 (0.00-0.00); Lymphocytes # (Auto) 0.8 Thou/mm3 (1.0-4.8); Lymphocytes % (Auto) 8 % (10-50); Mean Corpuscular HGB Conc 31.3 g/dl (31.0-37.0); Mean Corpuscular Hemoglobin 25.3 pg (25.0-35.0); Mean Corpuscular Volume 81 fL (80-100); Monocytes # (Auto) 0.3 Thou/mm3 (0.0-0.8); Monocytes % (Auto) 3 % (0-12); Neutrophils # (Auto) 8.9 Thou/mm3 (1.8-7.7); Neutrophils % (Auto) 89 % (37-80); Nucleated Red Blood Cell # 0.00 Thou/mm3 (0.00-0.00); Nucleated Red Blood Cell % 0 /100 WBC (0); Platelet Count 320 Thou/mm3 (140-440); RDW Standard Deviation 49.7 fL (35.1-43.9); Red Blood Count 4.98 Miln/mm3 (4.50-5.90); White Blood Count 10.0 Thou/mm3 (3.8-10.6)
[2024-11-02 05:58] LABS: Albumin, Serum 4.3 gm/dL (3.5-5.0); Anion Gap 16 (7-16); BUN/Creatinine Ratio 13 Ratio (12-20); Blood Urea Nitrogen 32 mg/dL (9-23); Calcium 10.2 mg/dL (8.3-10.6); Calcium (Corrected) 10.2 mg/dL (8.5-10.1); Carbon Dioxide 31.5 mMol/L (20.0-31.0); Chloride 94 mMol/L (98-107); Creatinine (Component) 2.5 mg/dL (0.6-1.3); Estimated Creatinine Clearance 48.7 mL/min (>60); Glucose 121 mg/dL (74-106); Magnesium 2.4 mg/dL (1.6-2.6); Osmolality,Calculated 289 (275-295); Phosphorous 4.8 mg/dL (2.4-5.1); Potassium 3.9 mMol/L (3.4-5.1); Sodium 141 mMol/L (136-145); eGFR 31 See Note
[2024-11-02] MEDS: LABETALOL INJ 5 MG/ML VIAL 20 ML 10 MG IVP (06:07)
[2024-11-02] MEDS: BUDESONIDE RT 0.5 MG/2 ML NEBU 1 MG INH ×2 (06:34→19:12)
[2024-11-02] MEDS: HEPARIN SOD INJ 5000 UNIT/ML VIAL SC ×2 (08:41→21:18)
[2024-11-02] MEDS: NIFEdipine XL 30 MG TABCR 60 MG PO (08:42)
[2024-11-02] MEDS: NICOTINE PATCH 21 MG/24 HR PATCH.TD24 TOP (08:43)
--- NOTE | 2024-11-02 08:43 | PD.RESPRO ---
Documentation for date of: 11/02/24 Subjective Subjective Interval history: Patient was seen and examined at bedside. Patient reported significant improvement of his symptoms and his shortness of breath. His blood pressure today was still elevated 216/124 he was only on nifedipine 60 mg daily and Bumex 2 mg twice daily. His urine output since admission was 8 L and he is -6460 mL since admission. We noticed that his sodium bicarb started to increase to 31.5. His serum creatinine still elevated at 2.5 which decreased from yesterday 2.6. Exam Vital Signs Temp Pulse Resp BP Pulse Ox O2 Del Method O2 Flow Rate 97.1 F 84 20 216/124 H 94 L Nasal Cannula 2 11/02/24 04:00 11/02/24 06:43 11/02/24 06:43 11/02/24 06:07 11/02/24 06:43 11/02/24 04:00 11/02/24 06:43 Narrative Exam GEN: AOx3, semisitting position, on 3 L of oxygen able to speak full sentences HEENT: NC/AC, PERRLA, oral mucosa moist, neck supple CVS: RRR, S1-S2 present, no murmurs appreciated RESP: CTAB GI: soft,non distended, non tender, NBS MSK: able to move all 4 limbs, +4 Lower extremity edema SKIN: warm and dry [employer]: CN II-XII and Sensation grossly intact. Objective Labs 11/02/24 04:32 11/02/24 04:32 Labs: Laboratory Results - last 24 hr 11/01/24 11/02/24 13:02 04:32 WBC 10.0 RBC 4.98 Hgb 12.6 L Hct 40.3 L MCV 81 MCH 25.3 MCHC 31.3 RDW Std Deviation 49.7 H Plt Count 320 Neut % (Auto) 89 H Lymph % (Auto) 8 L [place] % (Auto) 3 Eos % (Auto) 0 Baso % (Auto) 0 Neut # (Auto) 8.9 H Lymph # (Auto) 0.8 L [place] # (Auto) 0.3 Eos # (Auto) 0.0 Baso # (Auto) 0.0 Immature Gran # (Auto) 0.03 H Absolute Nucleated RBC 0.00 Immature Gran % 0 Nucleated RBC % 0 Sodium 142 141 Potassium 3.2 L 3.9 D Chloride 98 94 L Carbon Dioxide 31.8 H 31.5 H Anion Gap 12 16 BUN 21 32 H Creatinine 2.6 H 2.5 H Estim Creat Clear Calc 39.0 L 48.7 L eGFR 29 L 31 L BUN/Creatinine Ratio 8 L 13 Glucose 129 H 121 H Calculated Osmolality 288 289 Calcium 9.9 10.2 Corrected Calcium 9.9 10.2 H Phosphorus 4.4 4.8 Magnesium 2.4 Albumin 4.0 4.3 Quality Measures Quality Measures none Assessment & Plan Assessment Current Active Medications: Generic Name Dose Route Start Last Admin Trade Name Freq PRN Reason Stop Dose Admin Acetaminophen 650 mg 10/31/24 21:49 Acetaminophen 325 Mg Tablet PO 11/30/24 21:48 Q6H PRN PAIN SCALE 1-3 (mild Acetaminophen 650 mg 10/31/24 21:49 Acetaminophen 325 Mg Tablet PO 11/30/24 21:48 Q6H PRN Fever >100.4 Hydrocodone Bitart/Acetaminophen 1 tab 10/31/24 21:49 Hydrocodone/Apap 10/325 Tab PO 11/05/24 21:48 Q4HR PRN PAIN SCALE 7-10 (Severe Budesonide 1 mg 11/01/24 10:45 11/02/24 06:34 Budesonide Rt 0.5 Mg/2 Ml Nebu INH 12/01/24 10:44 1 mg BIDRT HAYLEY Administration Bumetanide 2 mg 11/01/24 21:00 11/02/24 05:06 Bumetanide Inj 0.25 Mg/Ml Vial 4 Ml IVP 12/01/24 20:59 2 mg BIDD HAYLEY Administration Carvedilol 6.25 mg 11/02/24 08:00 Carvedilol 3.125 Mg Tablet PO 12/02/24 07:59 BIDWM HAYLEY Dexamethasone 6 mg 11/01/24 13:55 11/01/24 16:13 Dexamethasone 6 Mg Tablet PO 11/05/24 13:54 6 mg QDAY HAYLEY Administration Protocol Heparin Sodium (Porcine) 5,000 unit 11/01/24 09:00 11/01/24 20:36 Heparin Sod Inj 5000 Unit/Ml Vial SC 11/15/24 08:59 5,000 unit BID HAYLEY Administration Labetalol HCl 10 mg 11/01/24 20:55 11/02/24 06:07 Labetalol Inj 5 Mg/Ml Vial 20 Ml IVP 12/01/24 10:46 10 mg Q4H PRN Administration SBP >200 Losartan Potassium 25 mg 11/02/24 09:00 Losartan Potassium 25 Mg Tablet PO 12/02/24 08:59 QDAY HAYLEY Midazolam HCl 2 mg 10/31/24 22:31 11/01/24 17:55 Midazolam Inj 1 Mg/Ml Vial 2 Ml IVP 11/05/24 22:30 2 mg X1 PRN Administration AGITATION OR ANXIETY Nicotine 21 mg 10/31/24 21:55 11/01/24 08:48 Nicotine Patch 21 Mg/24 Hr Patch.Td24 TOP 11/30/24 21:54 21 mg QDAY HAYLEY Administration Nifedipine 60 mg 11/02/24 09:00 Nifedipine Xl 30 Mg Tabcr PO 12/02/24 08:59 QDAY HAYLEY Ondansetron HCl 4 mg 10/31/24 21:49 Ondansetron Inj 2 Mg/Ml Inj 2 Ml IVP 11/30/24 21:48 Q6H PRN NAUSEA OR VOMITING Protocol Oxycodone/Acetaminophen 1 tab 10/31/24 21:49 Oxycodone/Apap 5/325 Tablet PO 11/05/24 21:48 Q6H PRN PAIN SCALE 4-6 (Moderate Pantoprazole Sodium 40 mg 11/01/24 09:00 11/01/24 08:51 Pantoprazole Inj 40 Mg Vial IVP 12/01/24 08:59 40 mg QDAY HAYLEY Administration Plan Summary: Ziggy Navarro 49M pmhx of gout and methamphetamine dependence presented to [facility] ED on 11/01 for worsening shortness of breath on minimal exertion, orthopnea, PND, and significant leg swelling. Cardiology was consulted for suspected new onset heart failure likely secondary to methamphetamine use. # New onset acute decompensated heart failure #NSTEMI, type II #Hypertension emergency On exam, patient is unable to report whether he has history of heart failure or any heart disease in his family. Alert and oriented only x 1 to person. Very poor historian due to mental status. Admission BNP 868, increased from 10/30 163, likely increased from continued methamphetamine use with underlying heart failure exacerbation. Troponins 0.135->0.119->0.140->0.141. NSTEMI likely type II due to methamphetamine use and fluid overload from likely acute new onset heart failure. However type I cannot be ruled out due to unknown cardiac history, unknown family history and current illict drug use. 11/02/2024 echocardiogram showed combined heart failure, grade 3 diastolic dysfunction, HFrEF with ejection fraction of 20 to 25%. He is on Bumex 2 mg twice daily and he is -6.5 L since admission. it also showed mild pericardial effusion circumferential however there was no signs of tamponade. Today his serum potassium is 3.9, magnesium of 2.4. Review of his telemonitoring box did not show an episode of arrhythmias or bradycardia. And no signs of ischemic changes. Plan: - Telemetry for cardiac monitoring - Continue IV Bumex 2 mg BID, however monitor for contraction alkalosis and electrolyte derangement - Recommend tight blood pressure control. Okay to add carvedilol 6.25 mg p.o. twice daily - Keep K>4 and Mg>2 at all times - Meth abuse counseling #Hypertensive emergency On admission BP 243/149 HR 102 with likely HARINDER, although baseline is unknown and patient is not able to communicate whether he has kidney disease due to mental status. Plan: - Recommend to start carvedilol 6.25 mg BID and amlodipine 25 mg QD #HARINDER #COVID PNA #Acute transaminitis #Nicotine dependence #Methamphetamine dependence Polysubstance abuse Above management per primary team Thank you for your consultation please do not hesitate to reach out if you have any question or concern - Patient's plan and care discussed with my attending, Dr. Jameson Barrow MD Internal Medicine PGY-3 Attending Provider Attestation/Addendum I have personally seen and examined the patient separately on the above date of service and discussed the plan of care with the resident. I reviewed the resident Dr. Barrow consultation progress note and agree with the resident findings and plan in the note above and have also edited the documentation to reflect my findings and plan. Patient then still appears to be altered and in the effect of the medication and has history of significant methamphetamine use and last use was just before his went to see his primary care doctor we will send him to the emergency department. Has history of chronic methamphetamine abuse. His overall clinical picture appears to have CHF exacerbation and will obtain an echocardiogram for further evaluation of systolic versus diastolic versus combined heart failure. Patient denies any Chest pain chest pressure or shortness of breath at the present point of time. He is completely altered and unable to provide proper history on admission. His troponin elevation is up to 0.135 and 0.14 from an essentially flat. Mostly NSTEMI type II in the setting of heart failure along with history of drug abuse and elevated creatinine -acute kidney injury versus acute on chronic kidney disease stage IIIa 2.5. Mostly secondary to supply/demand mismatch and echo ordered to rule out any regional wall motion abnormalities. No other further inpatient ischemic workup required for the patient. Echo completed on 11/02/2024 showed Severe LVH. Global systolic function is severely reduced. Grade III diastolic dysfunction. EF estimated 20-25%. Mildly dilated RV. Septal flattening noted in the diastole indicating volume overload. Biatrial dilatation. Mild MR, Trace TR and PI. Mild aortic valve sclerosis without stenosis. Small circumferential pericardial effusion without any evidence of cardiac tamponade As suspected echo showed severe combined CHF with systolic and diastolic dysfunction with an EF of 20 to 25%. 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 Patient will need to completely stop his methamphetamine and should be on goal-directed medical therapy with beta-crispin, ARB or Entresto if his insurance approves it and eventually spironolactone all of which can be started as outpatient. For now patient can be started on beta-crispin and hold off on the ARB due to the kidney function. Continues to aggressive diuresis and with IV Bumex. Strict input output Daily weights and 2 g of intake. Keep net -1 to 2 L/day. Continue to monitor renal function. Daily weights. Will need to be discharged on home diuretics of at least Bumex 1 mg daily. Blood pressure was elevated significantly with a systolic up to 240 mmHg and recommended to start the patient on Coreg 6.25 mg twice daily for now there is no history of cocaine abuse and then also amlodipine 10 mg once daily and uptitrate the medications based on the blood pressure. Hold off on the losartan at present moment as patient will need room for IV diuresis and to avoid additional acute kidney injury and creatinine is already 2.5. Acute kidney injury versus acute on chronic kidney disease stage III-creatinine was 2.5-2.7 on admission. Continue to monitor creatinine with aggressive diuresis. Possible component of cardiorenal syndrome given his severe systolic and diastolic function. Continue diuresis for now Patient counseled to quit methamphetamine drug abuse completely for him to be eligible for any kind of advanced heart failure treatments. Patient should follow-up with the primary care doctor and recommended to follow-up with cardiology as outpatient if patient quit drug abuse and has been negative urine toxicology for the next few months. Jameson Ferrara M.D. Interventional Cardiology
--- NOTE | 2024-11-02 10:52 | ESCONSULT_ITS ---
HPI Data of Consult Consult date: 11/02/24 Requesting Physician: Huang Sylvester MD Admitting Provider: Elijah Stark MD Attending Provider: Huang Sylvester MD Primary Care Provider: Physician No Primary/Family Consult Narrative Reason for consult: HARINDER History of present illness: Mr. Navarro is a 49y/o M with PMH of gout, and polysubstance use disorder (Methamphetamine x 10yrs +), was sent by PCP to the hospital for shortness of breath and worsening lower extremity swelling. The shortness of breathe started many months ago that worsened with physical activity. Bilateral lower extremity swelling started to worsen over last 1 months. Denies fever, chills, nausea, vomitting,chest pain, palpation, ROJAS, dysuria. UTOX was positive for methamphetamine Patient came to the hospital on 10/30 for similar reasons but decided to AMA. He came back 10/31 due to similar symptoms. Nephrology was consulted for evaulation of HARINDER with possible CKD. ED course: Afebrile, BP 243/149, HR 102, RR 22, satting 88% ORA, improved to 97% on 2 L NC. CBC relatively unchanged from yesterday with Hgb 11.1, WBC 11.4. Normal coag panel. CMP remarkable for potassium 2.8, slightly worsening renal function since yesterday with creatinine 2.4, BUN 25 and GFR 28, LFTs relatively unchanged with AST 47, ALT 51, ALP 128. Troponin slightly higher at 0.140 (remains asymptomatic without chest pain). BNP significantly higher from yesterday at 868 (previously 163). TSH 5.76, lactic acid pending but was normal yesterday. UA negative for UTI. EKG unchanged showed sinus tachycardia without acute ST changes. CXR showed mild heart failure, no pneumonia. Rapid COVID test was positive yesterday. Cr: 2.7, BUN:25, eGFR: 28 In ED, patient received IV Lasix, IV labetalol, Versed and potassium replacement. Medical history: As stated above Surgical history: Right knee surgery. Allergies: NKDA Medications: ALLOPURINOL for gout. Family history: Dad , of natural causes. Mother has history of diabetes, otherwise alive and well. Brother history of diabetes. No family history of heart disease or sudden cardiac . Social history:Born and raised in the [place], lives with brother at home. Never , no children, currently in monogamous relationship with his girlfriend. Smoked 1 pack a year for greater than 20 years, currently trying to quit, smoking about 5 cigarettes daily. History of heavy alcohol use for more than 30 years. Denies illicit drug use, however UTOX positive for AMPHETAMINE. Note patient travel or sick exposure. 11/02/2024: Labs reviewed and patient examined at the bedside. Patient noted that his bilateral Lower extremity edema and shortness of breathe have improved significantly better. No other complaints at this time. Renal US ordered to assess renal function. Currently, Cr: 2.5, BUN:32, eGFR: 31 cc:: cc: Huang Sylvester MD Review of Systems Review of Systems Narrative Review of Systems: ROS: All 12 systems assessed and the patient denies unless otherwise stated in HPI Exam Vital Signs Temp Pulse Resp BP Pulse Ox O2 Del Method O2 Flow Rate 97.9 F 85 20 187/119 H 100 Nasal Cannula 2 11/02/24 08:00 11/02/24 08:42 11/02/24 08:00 11/02/24 08:42 11/02/24 08:00 11/02/24 08:00 11/02/24 08:00 Narrative Exam General:well nourished, AAO x3, Saturating well on 2L NC Eye: PERRL, EOMI, normal conjunctiva, no scleral icterus HENT: Normocephalic, atraumatic, hearing intact to conversation at normal volume, moist oral mucosa Neck: Supple, non-tender, no JVD, no lymphadenopathy Lungs: Non-labored respirations, symmetric chest rise, Clear to auscultate bilaterally, No wheezing, rhonchi, crackles bilaterally. Heart: Peripheral pulses intact bilaterally, Regular, Tachycardia Abdomen: Soft, non-tender, non-distended, no palpable masses Musculoskeletal: 2+ bilateral lower extremity edema. Skin: Skin is warm, dry, no rashes or lesions. Psychiatric: Cooperative, appropriate mood and affect, Awake and alert, not agitated Neuro: Cranial nerves II-XII grossly intact. Strength 5/5 throughout. Sensations intact to light touch. Results Labs 11/03/24 04:56 11/03/24 13:49 Labs: Short CBC 11/02/24 Range/Units 04:32 WBC 10.0 (3.8-10.6) Thou/mm3 Hgb 12.6 L (13.5-16.0) g/dL Hct 40.3 L (41.0-53.0) % Plt Count 320 (140-440) Thou/mm3 BMP 11/01/24 11/02/24 13:02 04:32 Sodium 142 141 Potassium 3.2 L 3.9 D Chloride 98 94 L Carbon Dioxide 31.8 H 31.5 H BUN 21 32 H Creatinine 2.6 H 2.5 H Glucose 129 H 121 H Calcium 9.9 10.2 Liver Function 11/01/24 11/02/24 Range/Units 13:02 04:32 Albumin 4.0 4.3 (3.5-5.0) gm/dL Quality Measures Quality Measures none Medications Home Medications and Allergies Home Medications ?Medication ?Instructions ?Recorded ?Confirmed ?Type No Known Home Medications 11/02/24 0908/21 History Allergies Allergy/AdvReac Type Severity Reaction Status Date / Time No Known Allergies Allergy Verified 10/31/24 16:07 Visit Medications Acetaminophen (Acetaminophen 325 Mg Tablet) 650 mg PO Q6H PRN PRN Reason: PAIN SCALE 1-3 (mild Stop: 11/30/24 21:48 Acetaminophen (Acetaminophen 325 Mg Tablet) 650 mg PO Q6H PRN PRN Reason: Fever >100.4 Stop: 11/30/24 21:48 Hydrocodone Bitart/Acetaminophen (Hydrocodone/Apap 10/325 Tab) 1 tab PO Q4HR PRN PRN Reason: PAIN SCALE 7-10 (Severe Stop: 11/05/24 21:48 Budesonide (Budesonide Rt 0.5 Mg/2 Ml Nebu) 1 mg INH BIDRT [facility] Stop: 12/01/24 10:44 Last Admin: 11/02/24 06:34 Dose: 1 mg Bumetanide (Bumetanide Inj 0.25 Mg/Ml Vial 4 Ml) 2 mg IVP BIDD [facility] Stop: 12/01/24 20:59 Last Admin: 11/02/24 05:06 Dose: 2 mg Carvedilol (Carvedilol 3.125 Mg Tablet) 12.5 mg PO BIDWM [facility] Stop: 12/02/24 17:29 Dexamethasone (Dexamethasone 6 Mg Tablet) 6 mg PO QDAY [facility]; Protocol Stop: 11/05/24 13:54 Last Admin: 11/02/24 08:44 Dose: 6 mg Heparin Sodium (Porcine) (Heparin Sod Inj 5000 Unit/Ml Vial) 5,000 unit SC BID [facility] Stop: 11/15/24 08:59 Last Admin: 11/02/24 08:41 Dose: 5,000 unit Hydralazine HCl (Hydralazine Hcl 25 Mg Tablet) 50 mg PO TID [facility] Stop: 12/02/24 13:59 Labetalol HCl (Labetalol Inj 5 Mg/Ml Vial 20 Ml) 10 mg IVP Q4H PRN PRN Reason: SBP >200 Stop: 12/01/24 10:46 Last Admin: 11/02/24 06:07 Dose: 10 mg Losartan Potassium (Losartan Potassium 25 Mg Tablet) 25 mg PO QDAY [facility] On Hold: 11/02/24 09:00 Stop: 12/02/24 08:59 Midazolam HCl (Midazolam Inj 1 Mg/Ml Vial 2 Ml) 2 mg IVP X1 PRN PRN Reason: AGITATION OR ANXIETY Stop: 11/05/24 22:30 Last Admin: 11/01/24 17:55 Dose: 2 mg Nicotine (Nicotine Patch 21 Mg/24 Hr Patch.Td24) 21 mg TOP QDAY [facility] Stop: 11/30/24 21:54 Last Admin: 11/02/24 08:43 Dose: 21 mg Nifedipine (Nifedipine Xl 30 Mg Tabcr) 60 mg PO QDAY [facility] Stop: 12/02/24 08:59 Last Admin: 11/02/24 08:42 Dose: 60 mg Ondansetron HCl (Ondansetron Inj 2 Mg/Ml Inj 2 Ml) 4 mg IVP Q6H PRN; Protocol PRN Reason: NAUSEA OR VOMITING Stop: 11/30/24 21:48 Oxycodone/Acetaminophen (Oxycodone/Apap 5/325 Tablet) 1 tab PO Q6H PRN PRN Reason: PAIN SCALE 4-6 (Moderate Stop: 11/05/24 21:48 Pantoprazole Sodium (Pantoprazole Inj 40 Mg Vial) 40 mg IVP QDAY [facility] Stop: 12/01/24 08:59 Last Admin: 11/02/24 08:44 Dose: 40 mg Discontinued Medications Albuterol/Ipratropium (Albuterol/Ipratropium (Duoneb) Rt Estefani 3 Ml Nebu) 3 ml INH Q6HRRT [facility] Stop: 12/01/24 00:59 Last Admin: 11/01/24 06:59 Dose: 3 ml Amlodipine Besylate (Amlodipine Besylate 5 Mg Tablet) 5 mg PO X1 ONE Stop: 10/31/24 22:18 Last Admin: 10/31/24 23:14 Dose: 5 mg Amlodipine Besylate (Amlodipine Besylate 5 Mg Tablet) 10 mg PO QDAY [facility] Stop: 12/02/24 08:59 Bumetanide (Bumetanide Inj 0.25 Mg/Ml Vial 4 Ml) 2 mg IVP QDAY [facility] Stop: 12/01/24 08:59 Bumetanide (Bumetanide Inj 0.25 Mg/Ml Vial 4 Ml) 2 mg IVP QDAY [facility] Stop: 11/30/24 22:14 Last Admin: 11/01/24 08:47 Dose: 2 mg Bumetanide (Bumetanide Inj 0.25 Mg/Ml Vial 4 Ml) 1 mg IVP X1 ONE Stop: 11/01/24 11:43 Last Admin: 11/01/24 12:36 Dose: 1 mg Carvedilol (Carvedilol 3.125 Mg Tablet) 3.125 mg PO X1 ONE Stop: 11/01/24 20:56 Last Admin: 11/01/24 21:02 Dose: 3.125 mg Carvedilol (Carvedilol 3.125 Mg Tablet) 6.25 mg PO BIDWM [facility] Stop: 12/02/24 07:59 Last Admin: 11/02/24 08:41 Dose: 6.25 mg Carvedilol (Carvedilol 3.125 Mg Tablet) 6.25 mg PO X1 ONE Stop: 11/02/24 10:26 Dexamethasone (Dexamethasone 6 Mg Tablet) 6 mg PO QDAY [facility]; Protocol Stop: 12/02/24 08:59 Furosemide (Furosemide Inj 10 Mg/Ml 4ml Vial) 40 mg IVP X1 ONE Stop: 10/31/24 16:41 Last Admin: 10/31/24 18:08 Dose: 40 mg Furosemide (Furosemide Inj 10 Mg/Ml 4ml Vial) 40 mg IVP X1 ONE Stop: 10/31/24 21:54 Last Admin: 10/31/24 23:09 Dose: Not Given Hydralazine HCl (Hydralazine Inj 20 Mg/Ml Vial) 20 mg IVP X1 ONE Stop: 11/01/24 23:08 Last Admin: 11/01/24 23:14 Dose: 20 mg Hydralazine HCl (Hydralazine Inj 20 Mg/Ml Vial) 20 mg IVP X1 ONE Stop: 11/01/24 23:08 Last Admin: 11/01/24 23:12 Dose: Not Given Magnesium Sulfate (Magnesium Sulfate Ivpb) 2 gm in 50 mls @ 25 mls/hr IV X1 ONE Stop: 10/31/24 23:48 Last Infusion: 11/01/24 01:19 Dose: Infused Potassium Chloride (Kcl Ivpb) 100 mls @ 100 mls/hr IV Q1H [facility] Stop: 11/01/24 12:59 Last Admin: 11/01/24 13:05 Dose: 75 mls/hr Magnesium Sulfate (Magnesium Sulfate Ivpb) 4 gm in 50 mls @ 12.5 mls/hr IV X1 ONE Stop: 11/01/24 20:13 Last Admin: 11/01/24 17:56 Dose: 12.5 mls/hr Potassium Chloride (Kcl Ivpb) 10 meq in 100 mls @ 50 mls/hr IV Q1H [facility] Stop: 11/02/24 00:15 Last Admin: 11/02/24 04:53 Dose: 50 mls/hr Labetalol HCl (Labetalol Inj 5 Mg/Ml Vial 20 Ml) 10 mg IVP X1 ONE Stop: 10/31/24 16:41 Last Admin: 10/31/24 18:08 Dose: 10 mg Labetalol HCl (Labetalol Inj 5 Mg/Ml Vial 20 Ml) 10 mg IVP X1 ONE Stop: 10/31/24 19:44 Last Admin: 10/31/24 20:29 Dose: 10 mg Labetalol HCl (Labetalol Inj 5 Mg/Ml Vial 20 Ml) 10 mg IVP Q2H PRN PRN Reason: SBP>170 Stop: 12/01/24 00:18 Last Admin: 11/01/24 08:46 Dose: 10 mg Labetalol HCl (Labetalol Inj 5 Mg/Ml Vial 20 Ml) 10 mg IVP Q2H PRN PRN Reason: SBP>160 Stop: 12/01/24 00:18 Labetalol HCl (Labetalol Inj 5 Mg/Ml Vial 20 Ml) 10 mg IVP Q4H PRN PRN Reason: SBP >165 Stop: 12/01/24 10:46 Last Admin: 11/01/24 16:14 Dose: 10 mg Midazolam HCl (Midazolam Inj 1 Mg/Ml Vial 2 Ml) 2 mg IVP X1 ONE Stop: 10/31/24 19:44 Last Admin: 10/31/24 20:30 Dose: 2 mg Nifedipine (Nifedipine 10 Mg Capsule) 10 mg PO X1 ONE Stop: 11/01/24 00:12 Last Admin: 11/01/24 00:19 Dose: 10 mg Nifedipine (Nifedipine 10 Mg Capsule) 10 mg PO X1 ONE Stop: 11/01/24 06:30 Last Admin: 11/01/24 06:39 Dose: 10 mg Nifedipine (Nifedipine Xl 30 Mg Tabcr) 60 mg PO QDAY [facility] Stop: 12/01/24 11:44 Nifedipine (Nifedipine Xl 30 Mg Tabcr) 30 mg PO QDAY [facility] Stop: 12/01/24 11:39 Last Admin: 11/01/24 12:35 Dose: 30 mg Potassium Chloride (Potassium Chloride 20 Meq Tabcr) 40 meq PO X1 ONE Stop: 10/31/24 20:21 Last Admin: 10/31/24 20:29 Dose: 40 meq Potassium Chloride (Potassium Chloride 20 Meq Tabcr) 40 meq PO X1 ONE Stop: 10/31/24 21:50 Last Admin: 10/31/24 23:14 Dose: 40 meq Assessment & Plan Plan 49y/o M with PMH of gout, and polysubstance use disorder, admitted for acute hypoxemic respiratory failure and CHF exacerbation. Nephrology consulted for management of HARINDER with possible CKD. # HARINDER # with possible Chronic Kidney Disease - On admission: Cr: 2.7, BUN:25, eGFR: 28 - Currently, Cr: 2.5, BUN:32, eGFR: 31. Not sure on baseline creatinine - Several months of gradually worsening exertional dyspnea, lower extremity swelling, PND, and orthopnea, likely CHF exacerbation - His current renal function is most likely a result of chronic injury to the kidneys from poorly controlled CHF, resulting in fluid overload as evidenced by BNP levels. - Initial management with diuresis is warranted, dialysis can be considered if renal function does not improve with diuresis. - UTOX was positive for methamphetamine Plan: - Continue diuresis with Bumetanide 2mg IV BID to manage fluid overload status. - Kidney US to identify if hydronephrosis is present and to assess other potential causes of renal function impairment. - Continue to monitor renal function; will consider dialysis if renal function shows no improvement with diuresis - Nephrology will continue to follow - Urine electrolytes, Urine protein and Urea - Avoid nephrotoxic and renally dise medications, strict ins and outs #Acute hypoxemic respiratory failure #New onset CHF #NYHA Class III heart failure - Several months of gradually worsening exertional dyspnea, lower extremity swelling, PND, and orthopnea, likely CHF exacerbation - EKG(10/31/2024): sinus rhythm, ventricular rate of 100 bpm, WI interval 152 MS, no ST segment elevation or depression - CXR (10/31/2024): Mild heart failure. Moderate enlargement cardiac contour. Differential would include pericardial effusion, Prominent vascular congestion., Early pulmonary edema the lung bases. - Bilateral lower extremity US venous doppler (10/31/2024): Negative for deep vein thrombosis - Echo (10/31/2024): New onset CHF, Severe LVH. Global systolic function is severely reduced. Grade III diastolic dysfunction. EF estimated 20-25%. Mildly dilated RV. Septal flattening noted in the diastole indicating volume overload. Biatrial dilatation. Mild MR, Trace TR and PI. Mild aortic valve sclerosis without stenosis Small circumferential pericardial effusion without any evidence of cardiac tamponade Plan: -Bumex 2mg IV bid -TSH and Lipid panel -Strict ins and out -K>4 and Mg >2 replete with caution given worsening kidney function -Daily weights -Fluid restrictions 1200ml qday #COVID PNA #Hypertensive emergency #Sinus tachycardia (resolved) #COIVD positive #NSTEMI type II #Acute transaminitis #Electrolyte abnormalities #Polysubstance use disorder -Management per Primary Hospitalist team Thank you for allowing us to participate in the care of your patient. Assessment and plan discussed with my attending physician Dr. Melani Chanel ([id number])- Internal medicine resident Attending Provider Attestation/Addendum Patient seen and examined with resident physician Dr. Chanel. Note reviewed, agree with findings and recommendations. Patient currently seen in telemetry. Currently in COVID-19 isolation room. Patient admitted with Systolic heart failure. Probably related to underlying amphetamine drug use for more than 10 years. Suspect underlying cardiorenal syndrome. Agree with diuretics. Edema noted. Renal ultrasound ordered. Thank you?1 for allowing me to participate in the care of Mr. Navarro
--- NOTE | 2024-11-02 12:17 | XR_ITS ---
Examination: Retroperitoneal ultrasound, complete Technique: Multiple high resolution grayscale images of the retroperitoneum obtained, including kidneys and bladder. Exam date and time:November 02, 2024, 1349 hrs. Indications: Acute renal insufficiency on laboratory examination today Findings: Right kidney 10.9 cm cortex 1.4 cm Left kidney 10.7 cm renal cortex 1.7 cm Moderate renal scar formation. No hydronephrosis. Contracted urinary bladder. Impression: Bilateral renal cortical thinning Moderate renal scar formation
--- NOTE | 2024-11-02 12:19 | ESPR_ITS ---
<Statement entered by Huang Sylvester MD - 11/07/24 07:14> I reviewed above note and agree with findings and plans. I have also personally examined the patient with medicine team and went over assessment and plan with medical team including hospitality internship and resident physician. <Statement entered by Tor Higgins MD - 11/02/24 13:53> No acute overnight events. Seen and examined at bedside and patient mentation appears much improved compared to yesterday. Echo obtained and showed EF 20 to 25%, severe LVH, grade 3 diastolic dysfunction, mildly dilated RV, biatrial dilatation, and small circumferential pericardial effusion without evidence of tamponade. Will continue with aggressive diuresis and cardiology on board. Given decreased kidney function, will hold off on GDMT other than Coreg. Remains hypertensive, so increase Coreg from 6.25 to 12.5 mg twice daily, added hydralazine 50 mg 3 times daily, and will continue with nifedipine 60 mg daily with as needed labetalol. Additionally, continues to be on dexamethasone for COVID. ----- Note reviewed and agree with care plan as documented. Please refer to the note below for further details. Plan discussed with attending physician Dr. Nga Higgins MD PGY-2 Internal Medicine Documentation for date of: 11/02/24 Subjective Subjective Interval history: Patient seen sitting in his bed comfortably, and evaluated. Patient appears well oriented to himself, his medical condition, where he is found that today. He recollects an episode of severe lightheadedness yesterday which led him to lose his balance and catch himself up in the air next to his bed. U-Tox was positive for methamphetamine, and it is likely the effect of the medication is wearing off. His shortness of breath is improved on 3L via NC. He had reported worsening SOB, inability to walk more than 50 feet without taking breaks, inability to lie flat without becoming short of breath, and and waking up several times at night gasping for air. Denies fever, chills, ROJAS, chest pain, productive cough, abdominal pain, N/V/D, or dysuria. Exam Vital Signs Temp Pulse Resp BP Pulse Ox O2 Del Method O2 Flow Rate 97.9 F 95 20 185/115 H 100 Nasal Cannula 2 11/02/24 08:00 11/02/24 11:17 11/02/24 08:00 11/02/24 11:17 11/02/24 08:00 11/02/24 08:00 11/02/24 08:00 Narrative Exam GENERAL * Obese male, on 2 L NC, satting well. HEENT * NCAT. JOLLY. Oral mucosa is moist. Patent Nares NECK * Supple, nontender, no JVD. CHEST * Tachycardia, regular rhythm, no m/g/r * Possible crackles bilaterally, difficult exam 2/2 body habitus, no wheezing ABDOMEN * Soft, flat, nontender. No guarding/rebound tenderness/masses. * Bowel sounds presents EXTREMITIES * 3+ bilateral lower extremity edema. SKIN * Warm and dry, no jaundice/rashes. NEUROMUSCULAR * No lumbar or midline, no CVA, no paraspinal muscle spasm or tenderness. * Moves all 4 extremities well, with full ROM and good CSM. * SIN x4, CN II-XII grossly intact. * No focal neurologic deficits. PSYCHIATRY * Normal mood and affect, cooperative, no SI or HI or hallucinations. Objective Labs 11/02/24 04:32 11/02/24 04:32 Labs: Laboratory Results - last 24 hr 11/01/24 11/02/24 13:02 04:32 WBC 10.0 RBC 4.98 Hgb 12.6 L Hct 40.3 L MCV 81 MCH 25.3 MCHC 31.3 RDW Std Deviation 49.7 H Plt Count 320 Neut % (Auto) 89 H Lymph % (Auto) 8 L N[place]oll[place] % (Auto) 3 Eos % (Auto) 0 Baso % (Auto) 0 Neut # (Auto) 8.9 H Lymph # (Auto) 0.8 L [place]oll[place] # (Auto) 0.3 Eos # (Auto) 0.0 Baso # (Auto) 0.0 Immature Gran # (Auto) 0.03 H Absolute Nucleated RBC 0.00 Immature Gran % 0 Nucleated RBC % 0 Sodium 142 141 Potassium 3.2 L 3.9 D Chloride 98 94 L Carbon Dioxide 31.8 H 31.5 H Anion Gap 12 16 BUN 21 32 H Creatinine 2.6 H 2.5 H Estim Creat Clear Calc 39.0 L 48.7 L eGFR 29 L 31 L BUN/Creatinine Ratio 8 L 13 Glucose 129 H 121 H Calculated Osmolality 288 289 Calcium 9.9 10.2 Corrected Calcium 9.9 10.2 H Phosphorus 4.4 4.8 Magnesium 2.4 Albumin 4.0 4.3 Quality Measures Quality Measures none Assessment & Plan Assessment Current Active Medications: Generic Name Dose Route Start Last Admin Trade Name Freq PRN Reason Stop Dose Admin Acetaminophen 650 mg 10/31/24 21:49 Acetaminophen 325 Mg Tablet PO 11/30/24 21:48 Q6H PRN PAIN SCALE 1-3 (mild Acetaminophen 650 mg 10/31/24 21:49 Acetaminophen 325 Mg Tablet PO 11/30/24 21:48 Q6H PRN Fever >100.4 Hydrocodone Bitart/Acetaminophen 1 tab 10/31/24 21:49 Hydrocodone/Apap 10/325 Tab PO 11/05/24 21:48 Q4HR PRN PAIN SCALE 7-10 (Severe Budesonide 1 mg 11/01/24 10:45 11/02/24 06:34 Budesonide Rt 0.5 Mg/2 Ml Nebu INH 12/01/24 10:44 1 mg BIDRT HAYLEY Administration Bumetanide 2 mg 11/01/24 21:00 11/02/24 05:06 Bumetanide Inj 0.25 Mg/Ml Vial 4 Ml IVP 12/01/24 20:59 2 mg BIDD HAYLEY Administration Carvedilol 12.5 mg 11/02/24 17:30 Carvedilol 3.125 Mg Tablet PO 12/02/24 17:29 BIDWM HAYLEY Dexamethasone 6 mg 11/01/24 13:55 11/02/24 08:44 Dexamethasone 6 Mg Tablet PO 11/05/24 13:54 6 mg QDAY HAYLEY Administration Protocol Heparin Sodium (Porcine) 5,000 unit 11/01/24 09:00 11/02/24 08:41 Heparin Sod Inj 5000 Unit/Ml Vial SC 11/15/24 08:59 5,000 unit BID HAYLEY Administration Hydralazine HCl 50 mg 11/02/24 14:00 Hydralazine Hcl 25 Mg Tablet PO 12/02/24 13:59 TID HAYLEY Labetalol HCl 10 mg 11/01/24 20:55 11/02/24 06:07 Labetalol Inj 5 Mg/Ml Vial 20 Ml IVP 12/01/24 10:46 10 mg Q4H PRN Administration SBP >200 Losartan Potassium 25 mg 11/02/24 09:00 Losartan Potassium 25 Mg Tablet PO 12/02/24 08:59 On Hold: 11/02/24 09:00 QDAY HAYLEY Midazolam HCl 2 mg 10/31/24 22:31 11/01/24 17:55 Midazolam Inj 1 Mg/Ml Vial 2 Ml IVP 11/05/24 22:30 2 mg X1 PRN Administration AGITATION OR ANXIETY Nicotine 21 mg 10/31/24 21:55 11/02/24 08:43 Nicotine Patch 21 Mg/24 Hr Patch.Td24 TOP 11/30/24 21:54 21 mg QDAY HAYLEY Administration Nifedipine 60 mg 11/02/24 09:00 11/02/24 08:42 Nifedipine Xl 30 Mg Tabcr PO 12/02/24 08:59 60 mg QDAY HAYLEY Administration Ondansetron HCl 4 mg 10/31/24 21:49 Ondansetron Inj 2 Mg/Ml Inj 2 Ml IVP 11/30/24 21:48 Q6H PRN NAUSEA OR VOMITING Protocol Oxycodone/Acetaminophen 1 tab 10/31/24 21:49 Oxycodone/Apap 5/325 Tablet PO 11/05/24 21:48 Q6H PRN PAIN SCALE 4-6 (Moderate Pantoprazole Sodium 40 mg 11/01/24 09:00 11/02/24 08:44 Pantoprazole Inj 40 Mg Vial IVP 12/01/24 08:59 40 mg QDAY HAYLEY Administration Plan Assessment This is a 49-year-old male with past medical history of gout, and polysubstance use disorder, admitted for acute hypoxemic respiratory failure likely in setting of CHF exacerbation, hypertensive emergency and COVID-pneumonia. Acute hypoxemic respiratory failure New onset CHF NYHA Class III heart failure COVID PNA Presenting with several months of gradually worsening exertional dyspnea, lower extremity swelling, PND, and orthopnea. Symptoms suggestive of CHF exacerbation, likely in the onset of COVID illness. Labs significant for elevated BNP. Exam showed significant volume overload with 3+ lower extremity edema bilaterally. Has multiple risk factors for CHF including polysubstance use disorder. ED gave LASIX 40 mg x 1. Venous Doppler Study was negative for DVT TTE Echo: EF estimated 20-25%. Mildly dilated RV.? Septal flattening noted in the diastole indicating volume overload. Biatrial dilatation. Mild MR, Trace TR and PI. Mild aortic valve sclerosis without stenosis Small circumferential pericardial effusion without any evidence of cardiac tamponade ? Patient had a total of 6.5L urine output during 11/02 Plan: ? Continue to diurese with BUMEX 2 mg bid ? Pending echocardiogram ? Strict JOSE MARIA's, fluid restrictions 1.2L, cardiac diet ? Maintain K>4.0 and Mag>2.0 Hypertensive emergency Sinus tachycardia (resolved) Presented with BP 243/49 and HR 102. Likely in settings of volume overload. Did not improve with LABETALOL x 2 and AMLODIPINE x 1. Given NIFEDIPINE 10 mg x 1. ARB contraindicated in the setting of HARINDER. - cardiology consulted, appreciate recs - increased carvedilol to 12.5mg BID. - added hydralazine 50mg TID - nifedipine 60mg daily - anticipate improvement with diuresis. ? LABETALOL board for target SBP less than 170 PRN COIVD positive Minimal symptoms. ? Continue monitoring - dexamethasone 6mg QD HARINDER No known history of CKD, unknown Cr/ eGFR baseline Creatinine 2.5, and stable. GFR 31, BUN 32. Either renal hypoperfusion in settings of CHF or hypertensive nephrosclerosis. Nephrology ordered renal ultrasound showing bilateral renal cortical thinning and moderate renal scar formation without hydronephrosis. ? Nephrology consulted, appreciate recs ? Ordered random urine sodium and creatinine for HARINDER typing. ? Monitor renal function closely while diuresing ? Renally dose meds, avoid overdiuresis and NEPHROTOXINS ? Daily CMP NSTEMI type II, resolved Likely has NSTEMI type II in settings of demand ischemia with elevated troponin 0.14 and EKG showing sinus tachycardia without acute ST changes. Denies chest pain at this point. Acute transaminitis Possible congestive hepatopathy AST 36, ALT 44, ALP 121 Electrolyte abnormalities Replete as needed Polysubstance use disorder NICOTINE patch daily Health Maintanence: Disposition: Telemetry, ADHF pending echocardiogram and improvement in respiratory and fluid status. PPx GI: IV Protonix 40mg PPx DVT: heparin subq Diet: Cardiac Code Status: full This case was discussed with my attending physician, Dr. Sylvester, and senior resident, Dr Graff. Richy Hemphill, DO PGY I
[2024-11-03] VITALS (17 sets, daily range): BP systolic 136–179; BP diastolic 81–111; PULSE 69–85; RESP 13–90; TEMP 36.3–37.1; O2SAT 92–99; BMI 31.1
--- NOTE | 2024-11-03 00:44 | PC.NURSE ---
Notified MD Crabtree regarding BP of 167/101 with HR 85, patient remains asymptomatic, MD instructed to re-notify if SBP is >180 and patient remains symptomatic, care continued.
[2024-11-03] MEDS: BUMETANIDE INJ 0.25 MG/ML VIAL 4 ML 2 MG IVP (05:37)
[2024-11-03] MEDS: BUDESONIDE RT 0.5 MG/2 ML NEBU 1 MG INH ×2 (06:09→19:27)
[2024-11-03 06:11] LABS: Basophils # (Auto) 0.0 Thou/mm3 (0.0-0.2); Basophils % (Auto) 0 % (0-2.5); Eosinophils # (Auto) 0.0 Thou/mm3 (0.0-0.5); Eosinophils % (Auto) 0 % (0-10); Hematocrit 39.6 % (41.0-53.0); Hemoglobin 12.4 g/dL (13.5-16.0); Immature Granulocytes Auto 0.07 Thou/mm3 (0.00-0.00); Lymphocytes # (Auto) 1.0 Thou/mm3 (1.0-4.8); Lymphocytes % (Auto) 7 % (10-50); Mean Corpuscular HGB Conc 31.3 g/dl (31.0-37.0); Mean Corpuscular Hemoglobin 25.4 pg (25.0-35.0); Mean Corpuscular Volume 81 fL (80-100); Monocytes # (Auto) 1.2 Thou/mm3 (0.0-0.8); Monocytes % (Auto) 8 % (0-12); Neutrophils # (Auto) 12.0 Thou/mm3 (1.8-7.7); Neutrophils % (Auto) 84 % (37-80); Nucleated Red Blood Cell # 0.00 Thou/mm3 (0.00-0.00); Nucleated Red Blood Cell % 0 /100 WBC (0); Platelet Count 375 Thou/mm3 (140-440); RDW Standard Deviation 49.5 fL (35.1-43.9); Red Blood Count 4.89 Miln/mm3 (4.50-5.90); White Blood Count 14.3 Thou/mm3 (3.8-10.6)
[2024-11-03 06:30] LABS: Albumin, Serum 4.3 gm/dL (3.5-5.0); Anion Gap 13 (7-16); BUN/Creatinine Ratio 14 Ratio (12-20); Blood Urea Nitrogen 34 mg/dL (9-23); Calcium 9.9 mg/dL (8.3-10.6); Calcium (Corrected) 9.9 mg/dL (8.5-10.1); Carbon Dioxide 33.0 mMol/L (20.0-31.0); Chloride 94 mMol/L (98-107); Creatinine (Component) 2.4 mg/dL (0.6-1.3); Estimated Creatinine Clearance 49.7 mL/min (>60); Glucose 130 mg/dL (74-106); Magnesium 2.0 mg/dL (1.6-2.6); Osmolality,Calculated 289 (275-295); Phosphorous 5.0 mg/dL (2.4-5.1); Potassium 3.1 mMol/L (3.4-5.1); Sodium 140 mMol/L (136-145); eGFR 32 See Note
[2024-11-03] MEDS: HEPARIN SOD INJ 5000 UNIT/ML VIAL SC ×2 (08:02→21:33)
[2024-11-03] MEDS: NIFEdipine XL 30 MG TABCR 60 MG PO (08:03)
[2024-11-03] MEDS: NICOTINE PATCH 21 MG/24 HR PATCH.TD24 TOP (08:05)
[2024-11-03] MEDS: POTASSIUM CHLORIDE 10% 20 MEQ/15 ML UDC 40 MEQ PO ×2 (09:48→09:49)
[2024-11-03 10:03] LABS: Creatinine,Random Urine 32 mg/dL (30-125); Sodium,Urine Random 93.2 mMol/L (20.0-110.0)
--- NOTE | 2024-11-03 10:36 | ESPR_ITS ---
Documentation for date of: 11/03/24 Subjective Subjective Interval history: Patient seen and examined at bedside. Telemetry reviewed showing no arrhythmias with heart rate minimum low 70s heart rate maximum 110 sinus. Vitals reviewed, BP still elevated. Patient reports feeling much better today, alert and oriented x 3. Denies chest pain, palpitations, shortness of breath, lightheadedness, dizziness or nausea or vomiting. Bilateral lower extremity edema improved however still 3+ pitting edema at ankles up to lower calves. K 3.1, Mg 2.0, Cr still elevated 2.4 and BUN increasing 34. Repleted KCl 80 mEq. Saturating at h95-99% on RA. 24h I/O 1040/4950 net neg -3910mL Exam Vital Signs Temp Pulse Resp BP Pulse Ox O2 Del Method O2 Flow Rate 97.6 F 79 16 179/111 H 97 Nasal Cannula 2 11/03/24 08:00 11/03/24 09:48 11/03/24 08:00 11/03/24 09:48 11/03/24 08:00 11/03/24 08:00 11/03/24 08:00 Narrative Exam GENERAL: AOx3, no acute distress, lying comfortably in bed, saturating at 98% on RA HEENT: NC/AT, mucous membranes moist, bilateral sclera anicteric CARDIOVASCULAR: regular rate and rhythm, S1/S2 present, no murmurs appreciated PULMONARY: clear to auscultation bilaterally, no rales/rhonchi/wheezes ABDOMINAL: soft, non-tender, non-distended, no rebound/guarding, bowel sounds present EXTREMITIES: no peripheral edema, 3+ pitting edema at ankles up to lower calf SKIN: warm and dry, intact, no rashes NEURO: CN II-XII grossly intact, no focal deficits, alert, following commands Objective Labs 11/04/24 04:12 11/04/24 04:12 Labs: Laboratory Results - last 24 hr 11/03/24 11/03/24 04:56 08:23 WBC 14.3 H D RBC 4.89 Hgb 12.4 L Hct 39.6 L MCV 81 MCH 25.4 MCHC 31.3 RDW Std Deviation 49.5 H Plt Count 375 D Neut % (Auto) 84 H Lymph % (Auto) 7 L Mower % (Auto) 8 Eos % (Auto) 0 Baso % (Auto) 0 Neut # (Auto) 12.0 H Lymph # (Auto) 1.0 Mower # (Auto) 1.2 H Eos # (Auto) 0.0 Baso # (Auto) 0.0 Immature Gran # (Auto) 0.07 H Absolute Nucleated RBC 0.00 Immature Gran % 1 H Nucleated RBC % 0 Sodium 140 Potassium 3.1 L D Chloride 94 L Carbon Dioxide 33.0 H Anion Gap 13 BUN 34 H Creatinine 2.4 H Estim Creat Clear Calc 49.7 L eGFR 32 L BUN/Creatinine Ratio 14 Glucose 130 H Calculated Osmolality 289 Calcium 9.9 Corrected Calcium 9.9 Phosphorus 5.0 Magnesium 2.0 Albumin 4.3 Ur Random Creatinine 32 Ur Random Sodium 93.2 Quality Measures Quality Measures none Assessment & Plan Assessment Current Active Medications: Generic Name Dose Route Start Last Admin Trade Name Freq PRN Reason Stop Dose Admin Acetaminophen 650 mg 10/31/24 21:49 Acetaminophen 325 Mg Tablet PO 11/30/24 21:48 Q6H PRN PAIN SCALE 1-3 (mild Acetaminophen 650 mg 10/31/24 21:49 Acetaminophen 325 Mg Tablet PO 11/30/24 21:48 Q6H PRN Fever >100.4 Hydrocodone Bitart/Acetaminophen 1 tab 10/31/24 21:49 Hydrocodone/Apap 10/325 Tab PO 11/05/24 21:48 Q4HR PRN PAIN SCALE 7-10 (Severe Budesonide 1 mg 11/01/24 10:45 11/03/24 06:09 Budesonide Rt 0.5 Mg/2 Ml Nebu INH 12/01/24 10:44 1 mg BIDRT HAYLEY Administration Bumetanide 2 mg 11/01/24 21:00 11/03/24 05:37 Bumetanide Inj 0.25 Mg/Ml Vial 4 Ml IVP 12/01/24 20:59 2 mg BIDD HAYLEY Administration Carvedilol 25 mg 11/03/24 17:30 Carvedilol 12.5 Mg Tablet PO 12/03/24 17:29 BIDWM HAYLEY Dexamethasone 6 mg 11/01/24 13:55 11/03/24 09:27 Dexamethasone 6 Mg Tablet PO 11/05/24 13:54 Not Given QDAY [facility] Protocol Heparin Sodium (Porcine) 5,000 unit 11/01/24 09:00 11/03/24 08:02 Heparin Sod Inj 5000 Unit/Ml Vial SC 11/15/24 08:59 5,000 unit BID HAYLEY Administration Hydralazine HCl 50 mg 11/02/24 14:00 11/03/24 05:37 Hydralazine Hcl 25 Mg Tablet PO 12/02/24 13:59 50 mg TID HAYLEY Administration Labetalol HCl 10 mg 11/01/24 20:55 11/02/24 06:07 Labetalol Inj 5 Mg/Ml Vial 20 Ml IVP 12/01/24 10:46 10 mg Q4H PRN Administration SBP >200 Losartan Potassium 25 mg 11/02/24 09:00 Losartan Potassium 25 Mg Tablet PO 12/02/24 08:59 On Hold: 11/02/24 09:00 QDAY HAYLEY Nicotine 21 mg 10/31/24 21:55 11/03/24 08:05 Nicotine Patch 21 Mg/24 Hr Patch.Td24 TOP 11/30/24 21:54 21 mg QDAY HAYLEY Administration Nifedipine 60 mg 11/02/24 09:00 11/03/24 08:03 Nifedipine Xl 30 Mg Tabcr PO 12/02/24 08:59 60 mg QDAY HAYLEY Administration Ondansetron HCl 4 mg 10/31/24 21:49 Ondansetron Inj 2 Mg/Ml Inj 2 Ml IVP 11/30/24 21:48 Q6H PRN NAUSEA OR VOMITING Protocol Oxycodone/Acetaminophen 1 tab 10/31/24 21:49 11/02/24 13:05 Oxycodone/Apap 5/325 Tablet PO 11/05/24 21:48 1 tab Q6H PRN Administration PAIN SCALE 4-6 (Moderate Pantoprazole Sodium 40 mg 11/01/24 09:00 11/03/24 08:02 Pantoprazole Inj 40 Mg Vial IVP 12/01/24 08:59 40 mg QDAY HAYLEY Administration Plan Ziggy Navarro 49M pmhx of gout and methamphetamine dependence presented to [facility] ED on 11/01 for worsening shortness of breath on minimal exertion, orthopnea, PND, and significant leg swelling. Cardiology was consulted for suspected new onset heart failure likely secondary to methamphetamine use. # New onset acute decompensated heart failure #NSTEMI, type II #Hypertension emergency NYHA Class III. Patient reports worsening SOB for the past threee months with associated orthopnea, dyspnea on exertion and PND, denies familial cardiac history. Admission BNP 868, increased from 9/3 163, likely increased from continued methamphetamine use with underlying heart failure exacerbation. Troponins 0.135->0.119->0.140->0.141. NSTEMI likely type II due to methamphetamine use and fluid overload from likely acute new onset heart failure. However type I cannot be ruled out due to current illict drug use. 11/02/2024 echocardiogram showed severe LVH. Global systolic function is severely reduced. Grade 3 diastolic dysfunction EF estimated 20 to 25%. Mildly dilated RV, septal flattening noted in diastole indicating volume overload. Biatrial dilation, mild MR, trace TR and PI, mild aortic valve sclerosis no stenosis. Small circumferential pericardial effusion without any evidence of cardiac tamponade Today, K 3.1, Mg 2.0, Cr still elevated 2.4 and BUN increasing 34. Repleted KCl 80 mEq. Plan: - Telemetry for cardiac monitoring - Hold IV Bumex 2 mg BID, due to contraction alkalosis, adequate 24h output, and continued creatinine elevation - Plan for holiday starting today although received Bumex 3 mg this AM, reassess electrolytes and kidney function tomorrow - If contraction alkalosis persists with further diuresis indication, plan to give acetazolamide 500 mg x1 tomorrow with no Bumex - Recommend tight blood pressure control - Keep K>4 and Mg>2 at all times - Meth abuse counseling #Hypertensive emergency On admission BP 243/149 HR 102 with likely HARINDER, although baseline is unknown and patient denies kidney disease. Plan: - Continue Carvedilol 25 mg BID - Discontinue nifedipine 60 mg QD - Increase hydralazine 50 to 100 mg TID - Start amlodipine 10 mg QD - Hold Losartan due to HARINDER #HARINDER #COVID PNA #Acute transaminitis #Nicotine dependence #Methamphetamine dependence Polysubstance abuse Above management per primary team Plan of care discussed with attending Dr. Ferrara, core microarchitect. Eulalia Haynes, DO PGY-1 Internal Medicine Attending Provider Attestation/Addendum I have personally seen and examined the patient separately on the above date of service and discussed the plan of care with the resident. I reviewed the resident Dr. Eulalia Haynes consultation progress note and agree with the resident findings and plan in the note above and have also edited the documentation to reflect my findings and plan. Jameson Ferrara M.D. Interventional Cardiology
[2024-11-03 11:50] LABS: Protein Total, Random Urine 40 mg/dL (1-14); Urea Nitrogen, Random Urine 267.0 mg/dL (350.0-1000.0)
--- NOTE | 2024-11-03 12:11 | PC.NURSE ---
Per Dr Sylvester do not administer amlodipine
--- NOTE | 2024-11-03 12:14 | PC.NURSE ---
Per Dr. Sylvester give amlodipine after all and dc nifedine
[2024-11-03] MEDS: BUMETANIDE INJ 0.25 MG/ML VIAL 4 ML 1 MG IVP (12:19)
[2024-11-03] MEDS: Magnesium Sulfate 2 GM Ivpb 2 GM/50 ML BAG IV (12:19)
[2024-11-03 14:54] LABS: Albumin, Serum 3.9 gm/dL (3.5-5.0); Anion Gap 14 (7-16); BUN/Creatinine Ratio 11 Ratio (12-20); Blood Urea Nitrogen 31 mg/dL (9-23); Calcium 9.6 mg/dL (8.3-10.6); Calcium (Corrected) 9.7 mg/dL (8.5-10.1); Carbon Dioxide 31.5 mMol/L (20.0-31.0); Chloride 96 mMol/L (98-107); Creatinine (Component) 2.8 mg/dL (0.6-1.3); Estimated Creatinine Clearance 42.6 mL/min (>60); Glucose 112 mg/dL (74-106); Osmolality,Calculated 288 (275-295); Phosphorous 4.7 mg/dL (2.4-5.1); Potassium 3.3 mMol/L (3.4-5.1); Sodium 141 mMol/L (136-145); eGFR 27 See Note
--- NOTE | 2024-11-03 15:34 | ESPR_ITS ---
<Statement entered by Huang Sylvester MD - 11/07/24 14:17> I reviewed above note and agree with findings and plans. I have also personally examined the patient with medicine team and went over assessment and plan with medical team including biomedical engineering internship and resident physician. Documentation for date of: 11/03/24 Subjective Subjective Interval history: Patient seen sitting in his bed comfortably, and evaluated. Lightheadedness, shortness of breath at baseline improved from yesterday, patient satting 95% on 2 L via nasal cannula later down from yesterday. Patient appears well oriented to himself, his medical condition, where he is found that today. Denies fever, chills, ROJAS, chest pain, productive cough, abdominal pain, N/V/D, or dysuria. Exam Vital Signs Temp Pulse Resp BP Pulse Ox O2 Del Method O2 Flow Rate 98.8 F 70 15 143/88 H 99 Nasal Cannula 2 11/03/24 12:00 11/03/24 14:30 11/03/24 12:00 11/03/24 14:30 11/03/24 12:00 11/03/24 12:00 11/03/24 12:00 Narrative Exam GENERAL * Obese male, on 2 L NC, satting well. HEENT * NCAT. JOLLY. Oral mucosa is moist. Patent Nares NECK * Supple, nontender, no JVD. CHEST * Tachycardia, regular rhythm, no m/g/r * Possible crackles bilaterally, difficult exam 2/2 body habitus, no wheezing ABDOMEN * Soft, flat, nontender. No guarding/rebound tenderness/masses. * Bowel sounds presents EXTREMITIES * 1-2+ bilateral lower extremity edema. SKIN * Warm and dry, no jaundice/rashes. NEUROMUSCULAR * No lumbar or midline, no CVA, no paraspinal muscle spasm or tenderness. * Moves all 4 extremities well, with full ROM and good CSM. * SIN x4, CN II-XII grossly intact. * No focal neurologic deficits. PSYCHIATRY * Normal mood and affect, cooperative, no SI or HI or hallucinations. Objective Labs 11/04/24 04:12 11/04/24 04:12 Labs: Laboratory Results - last 24 hr 11/03/24 11/03/24 11/03/24 04:56 08:23 13:49 WBC 14.3 H D RBC 4.89 Hgb 12.4 L Hct 39.6 L MCV 81 MCH 25.4 MCHC 31.3 RDW Std Deviation 49.5 H Plt Count 375 D Neut % (Auto) 84 H Lymph % (Auto) 7 L Spencer % (Auto) 8 Eos % (Auto) 0 Baso % (Auto) 0 Neut # (Auto) 12.0 H Lymph # (Auto) 1.0 Spencer # (Auto) 1.2 H Eos # (Auto) 0.0 Baso # (Auto) 0.0 Immature Gran # (Auto) 0.07 H Absolute Nucleated RBC 0.00 Immature Gran % 1 H Nucleated RBC % 0 Sodium 140 141 Potassium 3.1 L D 3.3 L Chloride 94 L 96 L Carbon Dioxide 33.0 H 31.5 H Anion Gap 13 14 BUN 34 H 31 H Creatinine 2.4 H 2.8 H Estim Creat Clear Calc 49.7 L 42.6 L eGFR 32 L 27 L BUN/Creatinine Ratio 14 11 L Glucose 130 H 112 H Calculated Osmolality 289 288 Calcium 9.9 9.6 Corrected Calcium 9.9 9.7 Phosphorus 5.0 4.7 Magnesium 2.0 Albumin 4.3 3.9 Ur Random Creatinine 32 U Random Total Protein 40 H Ur Random Sodium 93.2 Ur Random Urea Nitrogn 267.0 L Quality Measures Quality Measures none Assessment & Plan Assessment Current Active Medications: Generic Name Dose Route Start Last Admin Trade Name Freq PRN Reason Stop Dose Admin Acetaminophen 650 mg 10/31/24 21:49 Acetaminophen 325 Mg Tablet PO 11/30/24 21:48 Q6H PRN PAIN SCALE 1-3 (mild Acetaminophen 650 mg 10/31/24 21:49 Acetaminophen 325 Mg Tablet PO 11/30/24 21:48 Q6H PRN Fever >100.4 Hydrocodone Bitart/Acetaminophen 1 tab 10/31/24 21:49 Hydrocodone/Apap 10/325 Tab PO 11/05/24 21:48 Q4HR PRN PAIN SCALE 7-10 (Severe Amlodipine Besylate 10 mg 11/03/24 12:15 11/03/24 12:18 Amlodipine Besylate 5 Mg Tablet PO 12/03/24 12:14 10 mg QDAY HAYLEY Administration Budesonide 1 mg 11/01/24 10:45 11/03/24 06:09 Budesonide Rt 0.5 Mg/2 Ml Nebu INH 12/01/24 10:44 1 mg BIDRT HAYLEY Administration Bumetanide 2 mg 11/01/24 21:00 11/03/24 05:37 Bumetanide Inj 0.25 Mg/Ml Vial 4 Ml IVP 12/01/24 20:59 2 mg On Hold: 11/03/24 11:38 BIDD HAYLEY Administration Carvedilol 25 mg 11/03/24 17:30 Carvedilol 12.5 Mg Tablet PO 12/03/24 17:29 BIDWM HAYLEY Dexamethasone 6 mg 11/01/24 13:55 11/03/24 09:27 Dexamethasone 6 Mg Tablet PO 11/05/24 13:54 Not Given QDAY [facility] Protocol Heparin Sodium (Porcine) 5,000 unit 11/01/24 09:00 11/03/24 08:02 Heparin Sod Inj 5000 Unit/Ml Vial SC 11/15/24 08:59 5,000 unit BID HAYLEY Administration Hydralazine HCl 100 mg 11/03/24 14:00 11/03/24 14:30 Hydralazine Hcl 25 Mg Tablet PO 12/03/24 13:59 100 mg TID [facility] Administration Labetalol HCl 10 mg 11/01/24 20:55 11/02/24 06:07 Labetalol Inj 5 Mg/Ml Vial 20 Ml IVP 12/01/24 10:46 10 mg Q4H PRN Administration SBP >200 Losartan Potassium 25 mg 11/02/24 09:00 Losartan Potassium 25 Mg Tablet PO 12/02/24 08:59 On Hold: 11/02/24 09:00 QDAY [facility] Nicotine 21 mg 10/31/24 21:55 11/03/24 08:05 Nicotine Patch 21 Mg/24 Hr Patch.Td24 TOP 11/30/24 21:54 21 mg QDAY [facility] Administration Ondansetron HCl 4 mg 10/31/24 21:49 Ondansetron Inj 2 Mg/Ml Inj 2 Ml IVP 11/30/24 21:48 Q6H PRN NAUSEA OR VOMITING Protocol Oxycodone/Acetaminophen 1 tab 10/31/24 21:49 11/02/24 13:05 Oxycodone/Apap 5/325 Tablet PO 11/05/24 21:48 1 tab Q6H PRN Administration PAIN SCALE 4-6 (Moderate Pantoprazole Sodium 40 mg 11/01/24 09:00 11/03/24 08:02 Pantoprazole Inj 40 Mg Vial IVP 12/01/24 08:59 40 mg QDAY HAYLEY Administration Plan Assessment This is a 49-year-old male with past medical history of gout, and polysubstance use disorder, admitted for acute hypoxemic respiratory failure likely in setting of CHF exacerbation, hypertensive emergency and COVID-pneumonia. Hypertensive emergency, improving Sinus tachycardia (resolved) Presented with BP 243/49 and HR 102. Likely in settings of volume overload. ARB contraindicated in the setting of HARINDER. *Goal to reduce BPby ~25% in 1h; to 160/100-110 over 2-6h, then normal over 1-2 days - cardiology consulted, appreciate recs - increased carvedilol to 25mg BID. - raised hydralazine to 100mg TID - switched nifedipine 60mg to amlodipine 10mg QD ? LABETALOL on board for target SBP less than 170 PRN Acute hypoxemic respiratory failure Systolic HFrEF (EF 20-25%) NYHA Class III heart failure COVID PNA Presenting with several months of gradually worsening exertional dyspnea, lower extremity swelling, PND, and orthopnea. Symptoms suggestive of CHF exacerbation, likely in the onset of COVID illness. Labs significant for elevated BNP. Exam showed significant volume overload with 3+ lower extremity edema bilaterally. Has multiple risk factors for CHF including polysubstance use disorder. ED gave LASIX 40 mg x 1. Venous Doppler Study was negative for DVT TTE Echo: EF estimated 20-25%. Mildly dilated RV.? Septal flattening noted in the diastole indicating volume overload. Biatrial dilatation. Mild MR, Trace TR and PI. Mild aortic valve sclerosis without stenosis Small circumferential pericardial effusion without any evidence of cardiac tamponade ? Patient had a total of <5L urine output during 11/02 Plan: ? Given 3mg of Bumex in AM and held in the afternoon currently ? Pending echocardiogram ? Strict JOSE MARIA's, fluid restrictions 1.2L, cardiac diet ? Maintain K>4.0 and Mag>2.0 COIVD positive Minimal symptoms. ? Continue monitoring - dexamethasone 6mg QD HARINDER Contraction alkalosis Ddx cardiorenal syndrome, acute interstitial nephritis Na 141, Cr 2.8, U Na 93.2, U Cr 32, FENa 5.8% intrinsic BUN /Cr =11 Patient had been diuresed with Bumex 2mg bid for 3 days for >18L in total output Nephrology ordered renal ultrasound showing bilateral renal cortical thinning and moderate renal scar formation without hydronephrosis. ? Nephrology consulted, appreciate recs ? Discontinue Bumex ? Monitor renal function closely while diuresing ? Renally dose meds, avoid overdiuresis and NEPHROTOXINS ? Daily CMP NSTEMI type II, resolved Likely has NSTEMI type II in settings of demand ischemia with elevated troponin 0.14 and EKG showing sinus tachycardia without acute ST changes. Denies chest pain at this point. Acute transaminitis Possible congestive hepatopathy AST 36, ALT 44, ALP 121 Electrolyte abnormalities Replete as needed Polysubstance use disorder NICOTINE patch daily Health Maintanence: Disposition: Telemetry, ADHF pending echocardiogram and improvement in respiratory and fluid status. PPx GI: IV Protonix 40mg PPx DVT: heparin subq Diet: Cardiac Code Status: full This case was discussed with my attending physician, Dr. Sylvester, and senior resident, Dr Graff. Richy Hemphill, DO PGY I
--- NOTE | 2024-11-03 16:32 | ESPR_ITS ---
Documentation for date of: 11/03/24 Subjective Subjective Interval history: Mr. Navarro is a 49y/o M with PMH of gout, and polysubstance use disorder (Methamphetamine x 10yrs +), was sent by PCP to the hospital for shortness of breath and worsening lower extremity swelling. The shortness of breathe started many months ago that worsened with physical activity. Bilateral lower extremity swelling started to worsen over last 1 months. Denies fever, chills, nausea, vomitting,chest pain, palpation, ROJAS, dysuria. UTOX was positive for methamphetamine Patient came to the hospital on 10/30 for similar reasons but decided to AMA. He came back 10/31 due to similar symptoms. Nephrology was consulted for evaulation of HARINDER with possible CKD. ED course: Afebrile, BP 243/149, HR 102, RR 22, satting 88% ORA, improved to 97% on 2 L NC. CBC relatively unchanged from yesterday with Hgb 11.1, WBC 11.4. Normal coag panel. CMP remarkable for potassium 2.8, slightly worsening renal function since yesterday with creatinine 2.4, BUN 25 and GFR 28, LFTs relatively unchanged with AST 47, ALT 51, ALP 128. Troponin slightly higher at 0.140 (remains asymptomatic without chest pain). BNP significantly higher from yesterday at 868 (previously 163). TSH 5.76, lactic acid pending but was normal yesterday. UA negative for UTI. EKG unchanged showed sinus tachycardia without acute ST changes. CXR showed mild heart failure, no pneumonia. Rapid COVID test was positive yesterday. Cr: 2.7, BUN:25, eGFR: 28 In ED, patient received IV Lasix, IV labetalol, Versed and potassium replacement. Social history:Born and raised in the [place], lives with brother at home. Never , no children, currently in monogamous relationship with his girlfriend. Smoked 1 pack a year for greater than 20 years, currently trying to quit, smoking about 5 cigarettes daily. History of heavy alcohol use for more than 30 years. Denies illicit drug use, however UTOX positive for AMPHETAMINE. Note patient travel or sick exposure. 11/02/2024: Labs reviewed and patient examined at the bedside. Patient noted that his bilateral Lower extremity edema and shortness of breathe have improved significantly better. No other complaints at this time. Renal US ordered to assess renal function. Currently, Cr: 2.5, BUN:32, eGFR: 31 11/03/2024 patient comfortable. Denies any chest pain. Denies any nausea, vomiting. Still with shortness of breath and edema. Had a long conversation with patient regarding cardiorenal syndrome. Agree with diuretics.spoke to girl friend. Review of Systems Review of Systems Narrative Review of Systems: CONSTITUTIONAL: Patient denies any fever, chills. HEENT: Denies any visual disturbances or hearing problems. CARDIOVASCULAR: Patient denies any chest pain. ++ shortness of breath, swelling in the lower extremities. PULMONARY: Patient c/o shortness of breath GASTROINTESTINAL: Patient denies any abdominal pain, constipation, nausea, vomiting, diarrhea. GENITOURINARY: Patient denies any urinary symptoms of burning or frequency or hematuria, denies any form in the urine. SKIN: Denies any rash. MUSCULOSKELETAL: Denies any muscular skeletal problems of joint pains. NEUROLOGICAL: Denies any neurological problems of strokes, seizures or confusion. Denies any memory problems. PSYCHIATRIC: Denies any depression or anxiety. LYMPHATICS : No lymphadenopathy Exam Vital Signs Temp Pulse Resp BP Pulse Ox O2 Del Method O2 Flow Rate 37.1 C 70 15 143/88 H 99 Nasal Cannula 2 11/03/24 12:00 11/03/24 16:00 11/03/24 12:00 11/03/24 14:30 11/03/24 12:00 11/03/24 12:00 11/03/24 12:00 Narrative Exam GENERAL APPEARANCE: Patient seems to be comfortable, adequately hydrated and nourished. HEENT: EOMI, PERRLA NECK: Neck supple, no JVD or bruit CARDIOVASCULAR: Heart regular, no murmurs LUNGS/CHEST: Chest clear to auscultation. No rales, rhonchi, wheezing ABDOMEN: Soft, nontender, nondistended. No masses. Normal bowel sounds. EXTREMITIES: 2 +edema in legs SKIN: Skin exam normal without any rashes MUSCULOSKELETAL: Musculoskeletal exam normal PSYCHIATRIC: Normal mood, affect LYMPHATICS: No lymphadenopathy noted NEUROLOGICAL : No neurological deficits Objective Labs 11/04/24 04:12 11/04/24 04:12 Labs: Laboratory Results - last 24 hr 11/03/24 11/03/24 11/03/24 04:56 08:23 13:49 WBC 14.3 H D RBC 4.89 Hgb 12.4 L Hct 39.6 L MCV 81 MCH 25.4 MCHC 31.3 RDW Std Deviation 49.5 H Plt Count 375 D Neut % (Auto) 84 H Lymph % (Auto) 7 L [place]ayson % (Auto) 8 Eos % (Auto) 0 Baso % (Auto) 0 Neut # (Auto) 12.0 H Lymph # (Auto) 1.0 Grayson # (Auto) 1.2 H Eos # (Auto) 0.0 Baso # (Auto) 0.0 Immature Gran # (Auto) 0.07 H Absolute Nucleated RBC 0.00 Immature Gran % 1 H Nucleated RBC % 0 Sodium 140 141 Potassium 3.1 L D 3.3 L Chloride 94 L 96 L Carbon Dioxide 33.0 H 31.5 H Anion Gap 13 14 BUN 34 H 31 H Creatinine 2.4 H 2.8 H Estim Creat Clear Calc 49.7 L 42.6 L eGFR 32 L 27 L BUN/Creatinine Ratio 14 11 L Glucose 130 H 112 H Calculated Osmolality 289 288 Calcium 9.9 9.6 Corrected Calcium 9.9 9.7 Phosphorus 5.0 4.7 Magnesium 2.0 Albumin 4.3 3.9 Ur Random Creatinine 32 U Random Total Protein 40 H Ur Random Sodium 93.2 Ur Random Urea Nitrogn 267.0 L Assessment & Plan Additional Assessment & Plan Additional Plan: 49y/o M with PMH of gout, and polysubstance use disorder, admitted for acute hypoxemic respiratory failure and CHF exacerbation. Nephrology consulted for management of HARINDER with possible CKD. # HARINDER # with possible Chronic Kidney Disease - On admission: Cr: 2.7, BUN:25, eGFR: 28 - Currently, Cr: 2.5, BUN:32, eGFR: 31. Not sure on baseline creatinine - Several months of gradually worsening exertional dyspnea, lower extremity swelling, PND, and orthopnea, likely CHF exacerbation - His current renal function is most likely a result of chronic injury to the kidneys from poorly controlled CHF, resulting in fluid overload as evidenced by BNP levels. - Initial management with diuresis is warranted, dialysis can be considered if renal function does not improve with diuresis. - UTOX was positive for methamphetamine - Renal US (11/02/2024): bilateral renal cortical thinning and moderate renal scar formation without hydronephrosis. Plan: - on Bumetanide 2mg IV BID is Currently - ON HOLD. - Continue to monitor renal function; will consider dialysis if renal function shows no improvement with diuresis - Nephrology will continue to follow - Urine electrolytes, Urine protein and Urea - Avoid nephrotoxic and renally dise medications, strict ins and outs #Acute hypoxemic respiratory failure #New onset CHF #NYHA Class III heart failure - Several months of gradually worsening exertional dyspnea, lower extremity swelling, PND, and orthopnea, likely CHF exacerbation - EKG(10/31/2024): sinus rhythm, ventricular rate of 100 bpm, DE interval 152 MS, no ST segment elevation or depression - CXR (10/31/2024): Mild heart failure. Moderate enlargement cardiac contour. Differential would include pericardial effusion, Prominent vascular congestion., Early pulmonary edema the lung bases. - Bilateral lower extremity US venous doppler (10/31/2024): Negative for deep vein thrombosis - Echo (10/31/2024): New onset CHF, Severe LVH. Global systolic function is severely reduced. Grade III diastolic dysfunction. EF estimated 20-25%. Mildly dilated RV. Septal flattening noted in the diastole indicating volume overload. Biatrial dilatation. Mild MR, Trace TR and PI. Mild aortic valve sclerosis without stenosis Small circumferential pericardial effusion without any evidence of cardiac tamponade Plan: -Bumex 2mg IV bid is currently - -TSH and Lipid panel -Strict ins and out -K>4 and Mg >2 replete with caution given worsening kidney function -Daily weights -Fluid restrictions 1200ml qday #COVID PNA #Hypertensive emergency- on 3 meds #Sinus tachycardia (resolved) #COIVD positive #NSTEMI type II #Acute transaminitis #Electrolyte abnormalities #Polysubstance use disorder -Management per Primary Hospitalist team
[2024-11-03 22:30] LABS: Hepatitis A Antibody IgM Non Reactive (Non React); Hepatitis B Core Antibody IgM Non Reactive (Non React); Hepatitis B Surface Antigen Non Reactive (Non React); Hepatitis C Antibody Non Reactive (Non React)
[2024-11-04] VITALS (15 sets, daily range): BP systolic 126–165; BP diastolic 76–90; PULSE 65–96; RESP 14–94; TEMP 36.1–36.4; O2SAT 92–98; BMI 31.1
[2024-11-04 05:41] LABS: Basophils # (Auto) 0.1 Thou/mm3 (0.0-0.2); Basophils % (Auto) 1 % (0-2.5); Eosinophils # (Auto) 0.1 Thou/mm3 (0.0-0.5); Eosinophils % (Auto) 1 % (0-10); Hematocrit 38.8 % (41.0-53.0); Hemoglobin 12.0 g/dL (13.5-16.0); Immature Granulocytes Auto 0.06 Thou/mm3 (0.00-0.00); Lymphocytes # (Auto) 1.2 Thou/mm3 (1.0-4.8); Lymphocytes % (Auto) 10 % (10-50); Mean Corpuscular HGB Conc 30.9 g/dl (31.0-37.0); Mean Corpuscular Hemoglobin 25.1 pg (25.0-35.0); Mean Corpuscular Volume 81 fL (80-100); Monocytes # (Auto) 1.2 Thou/mm3 (0.0-0.8); Monocytes % (Auto) 10 % (0-12); Neutrophils # (Auto) 9.6 Thou/mm3 (1.8-7.7); Neutrophils % (Auto) 78 % (37-80); Nucleated Red Blood Cell # 0.00 Thou/mm3 (0.00-0.00); Nucleated Red Blood Cell % 0 /100 WBC (0); Platelet Count 344 Thou/mm3 (140-440); RDW Standard Deviation 50.4 fL (35.1-43.9); Red Blood Count 4.79 Miln/mm3 (4.50-5.90); White Blood Count 12.3 Thou/mm3 (3.8-10.6)
[2024-11-04 05:57] LABS: Albumin, Serum 4.1 gm/dL (3.5-5.0); Anion Gap 11 (7-16); BUN/Creatinine Ratio 14 Ratio (12-20); Blood Urea Nitrogen 35 mg/dL (9-23); Calcium 9.7 mg/dL (8.3-10.6); Calcium (Corrected) 9.7 mg/dL (8.5-10.1); Carbon Dioxide 33.5 mMol/L (20.0-31.0); Chloride 98 mMol/L (98-107); Creatinine (Component) 2.5 mg/dL (0.6-1.3); Estimated Creatinine Clearance 47.7 mL/min (>60); Glucose 84 mg/dL (74-106); Magnesium 2.2 mg/dL (1.6-2.6); Osmolality,Calculated 290 (275-295); Phosphorous 3.5 mg/dL (2.4-5.1); Potassium 3.1 mMol/L (3.4-5.1); Sodium 142 mMol/L (136-145); eGFR 31 See Note
[2024-11-04] MEDS: BUDESONIDE RT 0.5 MG/2 ML NEBU 1 MG INH ×2 (06:13→18:32)
--- NOTE | 2024-11-04 09:04 | ESPR_ITS ---
Documentation for date of: 11/04/24 Subjective Subjective Interval history: Reason for consult: HARINDER History of present illness: Mr. Navarro is a 49y/o M with PMH of gout, and polysubstance use disorder (Methamphetamine x 10yrs +), was sent by PCP to the hospital for shortness of breath and worsening lower extremity swelling. The shortness of breathe started many months ago that worsened with physical activity. Bilateral lower extremity swelling started to worsen over last 1 months. Denies fever, chills, nausea, vomitting,chest pain, palpation, ROJAS, dysuria. UTOX was positive for methamphetamine Patient came to the hospital on 10/30 for similar reasons but decided to AMA. He came back 10/31 due to similar symptoms. Nephrology was consulted for evaulation of HARINDER with possible CKD. ED course: Afebrile, BP 243/149, HR 102, RR 22, satting 88% ORA, improved to 97% on 2 L NC. CBC relatively unchanged from yesterday with Hgb 11.1, WBC 11.4. Normal coag panel. CMP remarkable for potassium 2.8, slightly worsening renal function since yesterday with creatinine 2.4, BUN 25 and GFR 28, LFTs relatively unchanged with AST 47, ALT 51, ALP 128. Troponin slightly higher at 0.140 (remains asymptomatic without chest pain). BNP significantly higher from yesterday at 868 (previously 163). TSH 5.76, lactic acid pending but was normal yesterday. UA negative for UTI. EKG unchanged showed sinus tachycardia without acute ST changes. CXR showed mild heart failure, no pneumonia. Rapid COVID test was positive Cr: 2.7, BUN:25, eGFR: 28 In ED, patient received IV Lasix, IV labetalol, Versed and potassium replacement. Medical history: As stated above Surgical history: Right knee surgery. Allergies: NKDA Medications: ALLOPURINOL for gout. Family history: Dad , of natural causes. Mother has history of diabetes, otherwise alive and well. Brother history of diabetes. No family history of heart disease or sudden cardiac . Social history:Born and raised in the [place], lives with brother at home. Never , no children, currently in monogamous relationship with his girlfriend. Smoked 1 pack a year for greater than 20 years, currently trying to quit, smoking about 5 cigarettes daily. History of heavy alcohol use for more than 30 years. Denies illicit drug use, however UTOX positive for AMPHETAMINE. Note patient travel or sick exposure. 11/02/2024: Labs reviewed and patient examined at the bedside. Patient noted that his bilateral Lower extremity edema and shortness of breathe have improved significantly better. No other complaints at this time. Renal US ordered to assess renal function. Currently, Cr: 2.5, BUN:32, eGFR: 31 11/03/2024: Patient with lower extremity edema and shortness of breathe. Cr: 2.8, BUN:31, eGFR: 27 11/04/2024: Labs reviewed and patient examined at the bedside. Patient's bilateral lower extremity edema has improved. No other complaints at this time. Acetazolamide 500mg IV x1 given for metabolic alkalosis CO2: 33.5. Potentially benefit from entresto. Cr: 2.5, BUN:35, eGFR: 31 Exam Vital Signs Temp Pulse Resp BP Pulse Ox O2 Del Method O2 Flow Rate 97.5 F 79 17 165/86 H 98 Nasal Cannula 2 11/04/24 08:00 11/04/24 08:00 11/04/24 08:00 11/04/24 08:00 11/04/24 08:00 11/04/24 08:00 11/04/24 08:00 Narrative Exam General:well nourished, AAO x3, Saturating well on 2L NC Eye: PERRL, EOMI, normal conjunctiva, no scleral icterus HENT: Normocephalic, atraumatic, hearing intact to conversation at normal volume, moist oral mucosa Neck: Supple, non-tender, no JVD, no lymphadenopathy Lungs: Non-labored respirations, symmetric chest rise, Clear to auscultate bilaterally, No wheezing, rhonchi, crackles bilaterally. Heart: Peripheral pulses intact bilaterally, Regular, Tachycardia Abdomen: Soft, non-tender, non-distended, no palpable masses Musculoskeletal: 2+ bilateral lower extremity edema. Skin: Skin is warm, dry, no rashes or lesions. Psychiatric: Cooperative, appropriate mood and affect, Awake and alert, not agitated Neuro: Cranial nerves II-XII grossly intact. Strength 5/5 throughout. Sensations intact to light touch. Objective Labs 11/04/24 04:12 11/04/24 04:12 Labs: Laboratory Results - last 24 hr 11/02/24 11/03/24 11/03/24 04:32 08:23 13:49 WBC RBC Hgb Hct MCV MCH MCHC RDW Std Deviation Plt Count Neut % (Auto) Lymph % (Auto) Amelia % (Auto) Eos % (Auto) Baso % (Auto) Neut # (Auto) Lymph # (Auto) Amelia # (Auto) Eos # (Auto) Baso # (Auto) Immature Gran # (Auto) Absolute Nucleated RBC Immature Gran % Nucleated RBC % Sodium 141 Potassium 3.3 L Chloride 96 L Carbon Dioxide 31.5 H Anion Gap 14 BUN 31 H Creatinine 2.8 H Estim Creat Clear Calc 42.6 L eGFR 27 L BUN/Creatinine Ratio 11 L Glucose 112 H Calculated Osmolality 288 Calcium 9.6 Corrected Calcium 9.7 Phosphorus 4.7 Magnesium Albumin 3.9 Ur Random Creatinine 32 U Random Total Protein 40 H Ur Random Sodium 93.2 Ur Random Urea Nitrogn 267.0 L Hepatitis A IgM Ab Non Reactive Hep Bs Antigen Non Reactive Hep B Core IgM Ab Non Reactive Hepatitis C Antibody Non Reactive 11/04/24 04:12 WBC 12.3 H RBC 4.79 Hgb 12.0 L Hct 38.8 L MCV 81 MCH 25.1 MCHC 30.9 L RDW Std Deviation 50.4 H Plt Count 344 D Neut % (Auto) 78 Lymph % (Auto) 10 Amelia % (Auto) 10 Eos % (Auto) 1 Baso % (Auto) 1 Neut # (Auto) 9.6 H Lymph # (Auto) 1.2 Amelia # (Auto) 1.2 H Eos # (Auto) 0.1 Baso # (Auto) 0.1 Immature Gran # (Auto) 0.06 H Absolute Nucleated RBC 0.00 Immature Gran % 1 H Nucleated RBC % 0 Sodium 142 Potassium 3.1 L Chloride 98 Carbon Dioxide 33.5 H Anion Gap 11 BUN 35 H Creatinine 2.5 H Estim Creat Clear Calc 47.7 L eGFR 31 L BUN/Creatinine Ratio 14 Glucose 84 Calculated Osmolality 290 Calcium 9.7 Corrected Calcium 9.7 Phosphorus 3.5 Magnesium 2.2 Albumin 4.1 Ur Random Creatinine U Random Total Protein Ur Random Sodium Ur Random Urea Nitrogn Hepatitis A IgM Ab Hep Bs Antigen Hep B Core IgM Ab Hepatitis C Antibody Quality Measures Quality Measures none Assessment & Plan Assessment Current Active Medications: Generic Name Dose Route Start Last Admin Trade Name Sarah PRN Reason Stop Dose Admin Acetaminophen 650 mg 10/31/24 21:49 Acetaminophen 325 Mg Tablet PO 11/30/24 21:48 Q6H PRN PAIN SCALE 1-3 (mild Acetaminophen 650 mg 10/31/24 21:49 Acetaminophen 325 Mg Tablet PO 11/30/24 21:48 Q6H PRN Fever >100.4 Hydrocodone Bitart/Acetaminophen 1 tab 10/31/24 21:49 Hydrocodone/Apap 10/325 Tab PO 11/05/24 21:48 Q4HR PRN PAIN SCALE 7-10 (Severe Amlodipine Besylate 10 mg 11/03/24 12:15 11/03/24 12:18 Amlodipine Besylate 5 Mg Tablet PO 12/03/24 12:14 10 mg QDAY HAYLEY Administration Budesonide 1 mg 11/01/24 10:45 11/04/24 06:13 Budesonide Rt 0.5 Mg/2 Ml Nebu INH 12/01/24 10:44 1 mg BIDRT HAYLEY Administration Bumetanide 2 mg 11/01/24 21:00 11/03/24 05:37 Bumetanide Inj 0.25 Mg/Ml Vial 4 Ml IVP 12/01/24 20:59 2 mg On Hold: 11/03/24 11:38 BIDD HAYLEY Administration Carvedilol 25 mg 11/03/24 17:30 11/03/24 16:39 Carvedilol 12.5 Mg Tablet PO 12/03/24 17:29 25 mg BIDWM HAYLEY Administration Dexamethasone 6 mg 11/01/24 13:55 11/03/24 09:27 Dexamethasone 6 Mg Tablet PO 11/05/24 13:54 Not Given QDAY [facility] Protocol Heparin Sodium (Porcine) 5,000 unit 11/01/24 09:00 11/03/24 21:33 Heparin Sod Inj 5000 Unit/Ml Vial SC 11/15/24 08:59 5,000 unit BID HAYLEY Administration Hydralazine HCl 100 mg 11/03/24 14:00 11/04/24 05:37 Hydralazine Hcl 25 Mg Tablet PO 12/03/24 13:59 100 mg TID HAYLEY Administration Labetalol HCl 10 mg 11/01/24 20:55 11/02/24 06:07 Labetalol Inj 5 Mg/Ml Vial 20 Ml IVP 12/01/24 10:46 10 mg Q4H PRN Administration SBP >200 Losartan Potassium 25 mg 11/02/24 09:00 Losartan Potassium 25 Mg Tablet PO 12/02/24 08:59 On Hold: 11/02/24 09:00 QDAY HAYLEY Nicotine 21 mg 10/31/24 21:55 11/03/24 08:05 Nicotine Patch 21 Mg/24 Hr Patch.Td24 TOP 11/30/24 21:54 21 mg QDAY HAYLEY Administration Ondansetron HCl 4 mg 10/31/24 21:49 Ondansetron Inj 2 Mg/Ml Inj 2 Ml IVP 11/30/24 21:48 Q6H PRN NAUSEA OR VOMITING Protocol Oxycodone/Acetaminophen 1 tab 10/31/24 21:49 11/02/24 13:05 Oxycodone/Apap 5/325 Tablet PO 11/05/24 21:48 1 tab Q6H PRN Administration PAIN SCALE 4-6 (Moderate Pantoprazole Sodium 40 mg 11/01/24 09:00 11/03/24 08:02 Pantoprazole Inj 40 Mg Vial IVP 12/01/24 08:59 40 mg QDAY HAYLEY Administration Plan 49y/o M with PMH of gout, and polysubstance use disorder, admitted for acute hypoxemic respiratory failure and CHF exacerbation. Nephrology consulted for management of HARINDER with possible CKD. # HARINDER # with possible Chronic Kidney Disease - On admission: Cr: 2.7, BUN:25, eGFR: 28 - Currently, Cr: 2.5, BUN:32, eGFR: 31. Not sure on baseline creatinine - Several months of gradually worsening exertional dyspnea, lower extremity swelling, PND, and orthopnea, likely CHF exacerbation - His current renal function is most likely a result of chronic injury to the kidneys from poorly controlled CHF, resulting in fluid overload as evidenced by BNP levels. - Initial management with diuresis is warranted, dialysis can be considered if renal function does not improve with diuresis. - UTOX was positive for methamphetamine - Renal US (11/02/2024): bilateral renal cortical thinning and moderate renal scar formation without hydronephrosis. Plan: - Bumetanide 2mg IV BID is Currently - ON HOLD. - Acetazolamide 500mg IV x1 given for metabolic alkalosis CO2: 33.5. Potentially benefit from entresto. - Continue to monitor renal function; will consider dialysis if renal function shows no improvement with diuresis - Nephrology will continue to follow - Urine electrolytes, Urine protein and Urea - Avoid nephrotoxic and renally dise medications, strict ins and outs #Acute hypoxemic respiratory failure #New onset CHF #NYHA Class III heart failure - Several months of gradually worsening exertional dyspnea, lower extremity swelling, PND, and orthopnea, likely CHF exacerbation - EKG(10/31/2024): sinus rhythm, ventricular rate of 100 bpm, FL interval 152 MS, no ST segment elevation or depression - CXR (10/31/2024): Mild heart failure. Moderate enlargement cardiac contour. Differential would include pericardial effusion, Prominent vascular congestion., Early pulmonary edema the lung bases. - Bilateral lower extremity US venous doppler (10/31/2024): Negative for deep vein thrombosis - Echo (10/31/2024): New onset CHF, Severe LVH. Global systolic function is severely reduced. Grade III diastolic dysfunction. EF estimated 20-25%. Mildly dilated RV. Septal flattening noted in the diastole indicating volume overload. Biatrial dilatation. Mild MR, Trace TR and PI. Mild aortic valve sclerosis without stenosis Small circumferential pericardial effusion without any evidence of cardiac tamponade Plan: -Bumex 2mg IV bid is currently - ON HOLD. -TSH and Lipid panel -Strict ins and out -K>4 and Mg >2 replete with caution given worsening kidney function -Daily weights -Fluid restrictions 1200ml qday #COVID PNA #Hypertensive emergency #Sinus tachycardia (resolved) #COIVD positive #NSTEMI type II #Acute transaminitis #Electrolyte abnormalities #Polysubstance use disorder -Management per Primary Hospitalist team Thank you for allowing us to participate in the care of your patient. Assessment and plan discussed with my attending physician Dr. Melani Chanel (PGY-1)- Internal medicine resident Attending Provider Attestation/Addendum Patient seen and examined with resident physician Dr. Chanel. Note reviewed, agree with findings and recommendations. Patient seems to have cardiorenal syndrome. Marked improvement with diuretics. Noted severe metabolic alkalosis-1 dose of acetazolamide given today. Plan of care discussed with the primary team. Will benefit from RAAS blockade.
[2024-11-04] MEDS: NICOTINE PATCH 21 MG/24 HR PATCH.TD24 TOP (09:23)
[2024-11-04] MEDS: HEPARIN SOD INJ 5000 UNIT/ML VIAL SC ×2 (09:23→21:03)
[2024-11-04] MEDS: ACETAzolaMIDE SOD 500 MG in SODIUM CHLORIDE 0.9% (Popper) 50 ML 100 MG IV (10:21)
--- NOTE | 2024-11-04 12:04 | ESPR_ITS ---
<Statement entered by Huang Sylvester MD - 11/07/24 14:18> I reviewed above note and agree with findings and plans. I have also personally examined the patient with medicine team and went over assessment and plan with medical team including internal medicine specialist and resident physician. <Statement entered by Tor Higgins MD - 11/04/24 15:31> No acute overnight events. Seen and examined at bedside and patient appears to be much more comfortable compared to prior. He is on room and and his lower extremity edema has significantly improved. His blood pressure has significantly improved and renal function improving. Cardiology and nephrology following, appreciate recommendations. Anticipate discharge within next 24-48 hours. ----- Note reviewed and agree with care plan as documented. Please refer to the note below for further details. Plan discussed with attending physician Dr. Nga Higgins MD PGY-2 Internal Medicine Documentation for date of: 11/04/24 Subjective Subjective Interval history: Patient seen sitting in his bed comfortably, and evaluated. Lightheadedness and shortness of breath at baseline improved. Patient satting 96% on RA, BP 126/76, and the remainder of vitals signs are also WNL. Patient appears well oriented to himself, his medical condition, where he is found that today. Denies fever, chills, ROJAS, chest pain, productive cough, abdominal pain, N/V/D, or dysuria. After speaking to nephro Dr Polo, gave lisinopril 10mg in the afternoon of 11/04 before resuming the med QAM from tomorrow morning. Exam Vital Signs Temp Pulse Resp BP Pulse Ox O2 Del Method O2 Flow Rate 97.5 F 79 17 165/86 H 98 Nasal Cannula 2 11/04/24 08:00 11/04/24 09:24 11/04/24 08:00 11/04/24 09:24 11/04/24 08:00 11/04/24 08:00 11/04/24 08:00 Narrative Exam GENERAL * Obese male, on RA, satting well. HEENT * NCAT. JOLLY. Oral mucosa is moist. Patent Nares NECK * Supple, nontender, no JVD. CHEST * Tachycardia, regular rhythm, no m/g/r * Possible crackles bilaterally, difficult exam 2/2 body habitus, no wheezing ABDOMEN * Soft, flat, nontender. No guarding/rebound tenderness/masses. * Bowel sounds presents EXTREMITIES * 1-2+ bilateral lower extremity edema. 3-4+ pver the feet, especially distal part of dorsum of the foot. SKIN * Warm and dry, no jaundice/rashes. NEUROMUSCULAR * No lumbar or midline, no CVA, no paraspinal muscle spasm or tenderness. * Moves all 4 extremities well, with full ROM and good CSM. * SIN x4, CN II-XII grossly intact. * No focal neurologic deficits. PSYCHIATRY * Normal mood and affect, cooperative, no SI or HI or hallucinations. Objective Labs 11/04/24 04:12 11/04/24 04:12 Labs: Laboratory Results - last 24 hr 11/02/24 11/03/24 11/04/24 04:32 13:49 04:12 WBC 12.3 H RBC 4.79 Hgb 12.0 L Hct 38.8 L MCV 81 MCH 25.1 MCHC 30.9 L RDW Std Deviation 50.4 H Plt Count 344 D Neut % (Auto) 78 Lymph % (Auto) 10 Dent % (Auto) 10 Eos % (Auto) 1 Baso % (Auto) 1 Neut # (Auto) 9.6 H Lymph # (Auto) 1.2 Dent # (Auto) 1.2 H Eos # (Auto) 0.1 Baso # (Auto) 0.1 Immature Gran # (Auto) 0.06 H Absolute Nucleated RBC 0.00 Immature Gran % 1 H Nucleated RBC % 0 Sodium 141 142 Potassium 3.3 L 3.1 L Chloride 96 L 98 Carbon Dioxide 31.5 H 33.5 H Anion Gap 14 11 BUN 31 H 35 H Creatinine 2.8 H 2.5 H Estim Creat Clear Calc 42.6 L 47.7 L eGFR 27 L 31 L BUN/Creatinine Ratio 11 L 14 Glucose 112 H 84 Calculated Osmolality 288 290 Calcium 9.6 9.7 Corrected Calcium 9.7 9.7 Phosphorus 4.7 3.5 Magnesium 2.2 Albumin 3.9 4.1 Hepatitis A IgM Ab Non Reactive Hep Bs Antigen Non Reactive Hep B Core IgM Ab Non Reactive Hepatitis C Antibody Non Reactive Quality Measures Quality Measures none Assessment & Plan Assessment Current Active Medications: Generic Name Dose Route Start Last Admin Trade Name Freq PRN Reason Stop Dose Admin Acetaminophen 650 mg 10/31/24 21:49 Acetaminophen 325 Mg Tablet PO 11/30/24 21:48 Q6H PRN PAIN SCALE 1-3 (mild Acetaminophen 650 mg 10/31/24 21:49 Acetaminophen 325 Mg Tablet PO 11/30/24 21:48 Q6H PRN Fever >100.4 Hydrocodone Bitart/Acetaminophen 1 tab 10/31/24 21:49 Hydrocodone/Apap 10/325 Tab PO 11/05/24 21:48 Q4HR PRN PAIN SCALE 7-10 (Severe Amlodipine Besylate 10 mg 11/03/24 12:15 11/04/24 09:24 Amlodipine Besylate 5 Mg Tablet PO 12/03/24 12:14 10 mg QDAY HAYLEY Administration Budesonide 1 mg 11/01/24 10:45 11/04/24 06:13 Budesonide Rt 0.5 Mg/2 Ml Nebu INH 12/01/24 10:44 1 mg BIDRT HAYLEY Administration Bumetanide 2 mg 11/01/24 21:00 11/03/24 05:37 Bumetanide Inj 0.25 Mg/Ml Vial 4 Ml IVP 12/01/24 20:59 2 mg On Hold: 11/03/24 11:38 BIDD HAYLEY Administration Carvedilol 25 mg 11/03/24 17:30 11/04/24 09:24 Carvedilol 12.5 Mg Tablet PO 12/03/24 17:29 25 mg BIDWM HAYLEY Administration Dexamethasone 6 mg 11/01/24 13:55 11/04/24 09:34 Dexamethasone 6 Mg Tablet PO 11/05/24 13:54 Not Given QDAY [facility] Protocol Heparin Sodium (Porcine) 5,000 unit 11/01/24 09:00 11/04/24 09:23 Heparin Sod Inj 5000 Unit/Ml Vial SC 11/15/24 08:59 5,000 unit BID HAYLEY Administration Hydralazine HCl 100 mg 11/03/24 14:00 11/04/24 05:37 Hydralazine Hcl 25 Mg Tablet PO 12/03/24 13:59 100 mg TID HAYLEY Administration Labetalol HCl 10 mg 11/01/24 20:55 11/02/24 06:07 Labetalol Inj 5 Mg/Ml Vial 20 Ml IVP 12/01/24 10:46 10 mg Q4H PRN Administration SBP >200 Losartan Potassium 25 mg 11/02/24 09:00 Losartan Potassium 25 Mg Tablet PO 12/02/24 08:59 On Hold: 11/02/24 09:00 QDAY HAYLEY Nicotine 21 mg 10/31/24 21:55 11/04/24 09:23 Nicotine Patch 21 Mg/24 Hr Patch.Td24 TOP 11/30/24 21:54 21 mg QDAY HAYLEY Administration Ondansetron HCl 4 mg 10/31/24 21:49 Ondansetron Inj 2 Mg/Ml Inj 2 Ml IVP 11/30/24 21:48 Q6H PRN NAUSEA OR VOMITING Protocol Oxycodone/Acetaminophen 1 tab 10/31/24 21:49 11/02/24 13:05 Oxycodone/Apap 5/325 Tablet PO 11/05/24 21:48 1 tab Q6H PRN Administration PAIN SCALE 4-6 (Moderate Pantoprazole Sodium 40 mg 11/01/24 09:00 11/04/24 09:23 Pantoprazole Inj 40 Mg Vial IVP 12/01/24 08:59 40 mg QDAY HAYLEY Administration Plan Assessment This is a 49-year-old male with past medical history of gout, and polysubstance use disorder, admitted for acute hypoxemic respiratory failure likely in setting of CHF exacerbation, hypertensive emergency and COVID-pneumonia. Hypertensive emergency, improving Sinus tachycardia (resolved) Presented with BP 243/49 and HR 102. Likely in settings of volume overload. ARB contraindicated in the setting of HARINDER. *Goal to reduce BP by ~25% in 1h; down to 160/100-110 over 2-6h, then normalize over 1-2 days. - cardiology consulted, appreciate recs - Carvedilol to 25mg BID. - Hydralazine to 100mg TID - added lisinopril 10mg QAM - Amlodipine 10mg QD ? LABETALOL on board for target SBP less than 170 PRN Acute hypoxemic respiratory failure HFrEF (EF 20-25%) NYHA Class III heart failure COVID PNA Presenting with several months of gradually worsening exertional dyspnea, lower extremity swelling, PND, and orthopnea. Symptoms suggestive of CHF exacerbation, likely in the onset of COVID illness. Labs significant for elevated BNP. Exam showed significant volume overload with 3+ lower extremity edema bilaterally. Has multiple risk factors for CHF including polysubstance use disorder. ED gave LASIX 40 mg x 1. Venous Doppler Study was negative for DVT TTE Echo (10/31/24): EF estimated 20-25%. Mildly dilated RV.? Septal flattening noted in the diastole indicating volume overload. Biatrial dilatation. Mild MR, Trace TR and PI. Mild aortic valve sclerosis without stenosis Small circumferential pericardial effusion without any evidence of cardiac tamponade ? Patient had a total of <5L urine output during 11/02, <3L on 11/04 while the patient was on diuretic holiday since PM 11/03. Plan: ? Bumex IV 2mg BID is on hold - Acetazolamide IV 500mg given for metabolic alkalosis CO2: 33.5. Nephrology suggests there is potential benefit from Entresto. Cardiology recommends to hold Losartan. - Will discharge the patient on Bumex 1mg daily ? Strict JOSE MARIA's, fluid restrictions 1.2L, cardiac diet ? Maintain K>4.0 and Mag>2.0 COIVD positive Minimal symptoms. ? Continue monitoring - dexamethasone 6mg QD HARINDER Contraction alkalosis Ddx cardiorenal syndrome, acute interstitial nephritis Na 141, Cr 2.8, U Na 93.2, U Cr 32, FENa 5.8% intrinsic BUN /Cr =11 Patient had been diuresed with Bumex 2mg bid for 3 days for >18L in total output Nephrology ordered renal ultrasound showing bilateral renal cortical thinning and moderate renal scar formation without hydronephrosis. ? Nephrology consulted, appreciate recs - Acetazolamide IV 500mg given for metabolic alkalosis CO2: 33.5. Nephrology suggests there is potential benefit from Entresto. Cardiology recommends to hold Losartan. ? Discontinue Bumex ? Monitor renal function closely while diuresing ? Renally dose meds, avoid overdiuresis and NEPHROTOXINS ? Daily CMP NSTEMI type II, resolved Likely has NSTEMI type II in settings of demand ischemia with elevated troponin 0.14 and EKG showing sinus tachycardia without acute ST changes. Denies chest pain at this point. Acute transaminitis Possible congestive hepatopathy AST 36, ALT 44, ALP 121 Electrolyte abnormalities Replete as needed Polysubstance use disorder NICOTINE patch daily Health Maintanence: Disposition: Telemetry, ADHF and improvement in respiratory and fluid status, pending discharge after marked diuresis with resolution of the presenting sxs. PPx GI: IV Protonix 40mg PPx DVT: heparin subq Diet: Cardiac Code Status: full This case was discussed with my attending physician, Dr. Sylvester, and senior resident, Dr Graff. Richy Hemphill, DO PGY I
--- NOTE | 2024-11-04 14:08 | ESPR_ITS ---
Documentation for date of: 11/04/24 Subjective Subjective Interval history: 11/03/24: Patient seen and examined at bedside. Telemetry reviewed showing no arrhythmias with heart rate minimum low 70s heart rate maximum 110 sinus. Vitals reviewed, BP still elevated. Patient reports feeling much better today, alert and oriented x 3. Denies chest pain, palpitations, shortness of breath, lightheadedness, dizziness or nausea or vomiting. Bilateral lower extremity edema improved however still 3+ pitting edema at ankles up to lower calves. K 3.1, Mg 2.0, Cr still elevated 2.4 and BUN increasing 34. Repleted KCl 80 mEq. Saturating at h95-99% on RA. 24h I/O 1040/4950 net neg -3910mL 11/04/24: Patient seen and examined at bedside. Telemetry reviewed showing no arrhythmias overnight. Vitals and labs reviewed. 24h net negative 4L. Patient is feeling well today, reports much improvement in breathing and leg swelling since admission. Denies active SOB, chest pain, lightheadedness, dizziness and palpitations. K 3.1, per primary team KCl 40 mEq repleted, bicarb still elevated at 33, BUN still elevated at 35, Cr still elevated at 2.5 and due to unknown baseline, unsure if has hx of CKD. Acetazolamide 500 mg x1 due to continued contraction alkalosis. Reports sees a PCP very rarely only when he is sick. Exam Vital Signs Temp Pulse Resp BP Pulse Ox O2 Del Method O2 Flow Rate 97.5 F 92 14 134/85 H 95 Nasal Cannula 0 11/04/24 12:11/04/24 14:11/04/24 12:11/04/24 14:11/04/24 12:11/04/24 12:11/04/24 12:00 Narrative Exam GENERAL: AOx3, no acute distress, lying comfortably in bed, saturating at 95- 99%% on RA HEENT: NC/AT, mucous membranes moist, bilateral sclera anicteric CARDIOVASCULAR: regular rate and rhythm, S1/S2 present, no murmurs appreciated PULMONARY: clear to auscultation bilaterally, no rales/rhonchi/wheezes ABDOMINAL: soft, non-tender, non-distended, no rebound/guarding, bowel sounds present EXTREMITIES: no peripheral edema, 3+ pitting edema at ankles up to lower calf SKIN: warm and dry, intact, no rashes NEURO: CN II-XII grossly intact, no focal deficits, alert, following commands Objective Labs 11/05/24 05:16 11/05/24 05:16 Labs: Laboratory Results - last 24 hr 11/02/24 11/03/24 11/04/24 04:32 13:49 04:12 WBC 12.3 H RBC 4.79 Hgb 12.0 L Hct 38.8 L MCV 81 MCH 25.1 MCHC 30.9 L RDW Std Deviation 50.4 H Plt Count 344 D Neut % (Auto) 78 Lymph % (Auto) 10 [place] % (Auto) 10 Eos % (Auto) 1 Baso % (Auto) 1 Neut # (Auto) 9.6 H Lymph # (Auto) 1.2 [place] # (Auto) 1.2 H Eos # (Auto) 0.1 Baso # (Auto) 0.1 Immature Gran # (Auto) 0.06 H Absolute Nucleated RBC 0.00 Immature Gran % 1 H Nucleated RBC % 0 Sodium 141 142 Potassium 3.3 L 3.1 L Chloride 96 L 98 Carbon Dioxide 31.5 H 33.5 H Anion Gap 14 11 BUN 31 H 35 H Creatinine 2.8 H 2.5 H Estim Creat Clear Calc 42.6 L 47.7 L eGFR 27 L 31 L BUN/Creatinine Ratio 11 L 14 Glucose 112 H 84 Calculated Osmolality 288 290 Calcium 9.6 9.7 Corrected Calcium 9.7 9.7 Phosphorus 4.7 3.5 Magnesium 2.2 Albumin 3.9 4.1 Hepatitis A IgM Ab Non Reactive Hep Bs Antigen Non Reactive Hep B Core IgM Ab Non Reactive Hepatitis C Antibody Non Reactive Quality Measures Quality Measures none Assessment & Plan Assessment Current Active Medications: Generic Name Dose Route Start Last Admin Trade Name Freq PRN Reason Stop Dose Admin Acetaminophen 650 mg 10/31/24 21:49 Acetaminophen 325 Mg Tablet PO 11/30/24 21:48 Q6H PRN PAIN SCALE 1-3 (mild Acetaminophen 650 mg 10/31/24 21:49 Acetaminophen 325 Mg Tablet PO 11/30/24 21:48 Q6H PRN Fever >100.4 Hydrocodone Bitart/Acetaminophen 1 tab 10/31/24 21:49 Hydrocodone/Apap 10/325 Tab PO 11/05/24 21:48 Q4HR PRN PAIN SCALE 7-10 (Severe Amlodipine Besylate 10 mg 11/03/24 12:15 11/04/24 09:24 Amlodipine Besylate 5 Mg Tablet PO 12/03/24 12:14 10 mg QDAY HAYLEY Administration Budesonide 1 mg 11/01/24 10:45 11/04/24 06:13 Budesonide Rt 0.5 Mg/2 Ml Nebu INH 12/01/24 10:44 1 mg BIDRT HAYLEY Administration Bumetanide 2 mg 11/01/24 21:00 11/03/24 05:37 Bumetanide Inj 0.25 Mg/Ml Vial 4 Ml IVP 12/01/24 20:59 2 mg On Hold: 11/03/24 11:38 BIDD HAYLEY Administration Carvedilol 25 mg 11/03/24 17:30 11/04/24 09:24 Carvedilol 12.5 Mg Tablet PO 12/03/24 17:29 25 mg BIDWM HAYLEY Administration Dexamethasone 6 mg 11/01/24 13:55 11/04/24 09:34 Dexamethasone 6 Mg Tablet PO 11/05/24 13:54 Not Given QDAY [facility] Protocol Heparin Sodium (Porcine) 5,000 unit 11/01/24 09:00 11/04/24 09:23 Heparin Sod Inj 5000 Unit/Ml Vial SC 11/15/24 08:59 5,000 unit BID HAYLEY Administration Hydralazine HCl 100 mg 11/03/24 14:00 11/04/24 14:00 Hydralazine Hcl 25 Mg Tablet PO 12/03/24 13:59 100 mg TID HAYLEY Administration Labetalol HCl 10 mg 11/01/24 20:55 11/02/24 06:07 Labetalol Inj 5 Mg/Ml Vial 20 Ml IVP 12/01/24 10:46 10 mg Q4H PRN Administration SBP >200 Losartan Potassium 25 mg 11/02/24 09:00 Losartan Potassium 25 Mg Tablet PO 12/02/24 08:59 On Hold: 11/02/24 09:00 QDAY HAYLEY Nicotine 21 mg 10/31/24 21:55 11/04/24 09:23 Nicotine Patch 21 Mg/24 Hr Patch.Td24 TOP 11/30/24 21:54 21 mg QDAY HAYLEY Administration Ondansetron HCl 4 mg 10/31/24 21:49 Ondansetron Inj 2 Mg/Ml Inj 2 Ml IVP 11/30/24 21:48 Q6H PRN NAUSEA OR VOMITING Protocol Oxycodone/Acetaminophen 1 tab 10/31/24 21:49 11/02/24 13:05 Oxycodone/Apap 5/325 Tablet PO 11/05/24 21:48 1 tab Q6H PRN Administration PAIN SCALE 4-6 (Moderate Pantoprazole Sodium 40 mg 11/01/24 09:00 11/04/24 09:23 Pantoprazole Inj 40 Mg Vial IVP 12/01/24 08:59 40 mg QDAY HAYLEY Administration Plan Ziggy Navarro 49M pmhx of gout and methamphetamine dependence presented to [facility] ED on 11/01 for worsening shortness of breath on minimal exertion, orthopnea, PND, and significant leg swelling. Cardiology was consulted for new onset heart failure and secondary to methamphetamine use found to have HFrEF (20-25%, 10/2024). #New onset acute decompensated heart failure #HFrEF (20-25%, 10/2024) #NSTEMI, type II NYHA Class III. Patient reports worsening SOB for the past threee months with associated orthopnea, dyspnea on exertion and PND, denies familial cardiac history. Admission BNP 868, increased from 10/30 163, likely increased from continued methamphetamine use with underlying heart failure exacerbation. Troponins 0.135->0.119->0.140->0.141. NSTEMI likely type II due to methamphetamine use and fluid overload from likely acute new onset heart failure. However type I cannot be ruled out due to current illict drug use. 11/02/2024 echocardiogram showed severe LVH. Global systolic function is severely reduced. Grade 3 diastolic dysfunction EF estimated 20 to 25%. Mildly dilated RV, septal flattening noted in diastole indicating volume overload. Biatrial dilation, mild MR, trace TR and PI, mild aortic valve sclerosis no stenosis. Small circumferential pericardial effusion without any evidence of cardiac tamponade Today, K 3.1, Mg 2.0, bicarb still elevated 33, Cr still elevated 2.5 and BUN increased to 35. Primary team repleted KCl 40 mEq. Plan: - Telemetry for cardiac monitoring - Continue to hold IV Bumex 2 mg BID, due to contraction alkalosis, adequate 24h output, and continued creatinine elevation - Due to contraction alkalosis persisting despite holding Bumex yesterday after noon, patient was given acetazolamide 500 mg x1 toady - Plan for Bumex 1 mg BID on discharge - Recommend tight blood pressure control - Keep K>4 and Mg>2 at all times - Meth abuse counseling #Hypertensive emergency On admission BP 243/149 HR 102 with likely HARINDER, although baseline is unknown and patient denies kidney disease. Plan: - Continue Carvedilol 25 mg BID, hydralazine 100 mg TID and amlodipine 10 mg QD - Hold Losartan due to HARINDER #HARINDER #COVID PNA #Acute transaminitis #Nicotine dependence #Methamphetamine dependence Polysubstance abuse Above management per primary team Plan of care discussed with attending Dr. Ferrara, awning hanger helper. Eulalia Haynes DO PGY-1 Internal Medicine Attending Provider Attestation/Addendum I have personally seen and examined the patient separately on the above date of service and discussed the plan of care with the resident. I reviewed the resident Dr. Eulalia Haynes consultation progress note and agree with the resident findings and plan in the note above and have also edited the documentation to reflect my findings and plan. Jameson Ferrara M.D. Interventional Cardiology
[2024-11-04 23:16] LABS: Potassium 3.2 mMol/L (3.4-5.1)
[2024-11-04] MEDS: POTASSIUM CHL 10 mEq IVPB 10 MEQ/100 ML BAG 100 MEQ IV (23:52)
[2024-11-05] VITALS (10 sets, daily range): BP systolic 100–166; BP diastolic 78–97; PULSE 64–80; RESP 16–96; TEMP 36.2–37; O2SAT 94–99
[2024-11-05] MEDS: POTASSIUM CHL 10 mEq IVPB 10 MEQ/100 ML BAG 100 MEQ IV ×5 (00:58→05:35)
[2024-11-05 06:07] LABS: Basophils # (Auto) 0.1 Thou/mm3 (0.0-0.2); Basophils % (Auto) 1 % (0-2.5); Eosinophils # (Auto) 0.1 Thou/mm3 (0.0-0.5); Eosinophils % (Auto) 1 % (0-10); Hematocrit 36.8 % (41.0-53.0); Hemoglobin 11.4 g/dL (13.5-16.0); Immature Granulocytes Auto 0.04 Thou/mm3 (0.00-0.00); Lymphocytes # (Auto) 1.1 Thou/mm3 (1.0-4.8); Lymphocytes % (Auto) 12 % (10-50); Mean Corpuscular HGB Conc 31.0 g/dl (31.0-37.0); Mean Corpuscular Hemoglobin 25.1 pg (25.0-35.0); Mean Corpuscular Volume 81 fL (80-100); Monocytes # (Auto) 0.9 Thou/mm3 (0.0-0.8); Monocytes % (Auto) 10 % (0-12); Neutrophils # (Auto) 6.9 Thou/mm3 (1.8-7.7); Neutrophils % (Auto) 76 % (37-80); Nucleated Red Blood Cell # 0.00 Thou/mm3 (0.00-0.00); Nucleated Red Blood Cell % 0 /100 WBC (0); Platelet Count 343 Thou/mm3 (140-440); RDW Standard Deviation 50.1 fL (35.1-43.9); Red Blood Count 4.55 Miln/mm3 (4.50-5.90); White Blood Count 9.2 Thou/mm3 (3.8-10.6)
[2024-11-05 06:22] LABS: Albumin, Serum 3.8 gm/dL (3.5-5.0); Anion Gap 13 (7-16); BUN/Creatinine Ratio 17 Ratio (12-20); Blood Urea Nitrogen 40 mg/dL (9-23); Calcium 9.3 mg/dL (8.3-10.6); Calcium (Corrected) 9.5 mg/dL (8.5-10.1); Carbon Dioxide 26.2 mMol/L (20.0-31.0); Chloride 103 mMol/L (98-107); Creatinine (Component) 2.4 mg/dL (0.6-1.3); Estimated Creatinine Clearance 49.4 mL/min (>60); Glucose 130 mg/dL (74-106); Magnesium 2.2 mg/dL (1.6-2.6); Osmolality,Calculated 294 (275-295); Phosphorous 3.7 mg/dL (2.4-5.1); Potassium 3.5 mMol/L (3.4-5.1); Sodium 142 mMol/L (136-145); eGFR 32 See Note
[2024-11-05] MEDS: BUDESONIDE RT 0.5 MG/2 ML NEBU 1 MG INH (07:05)
[2024-11-05] MEDS: HEPARIN SOD INJ 5000 UNIT/ML VIAL SC (08:09)
[2024-11-05] MEDS: NICOTINE PATCH 21 MG/24 HR PATCH.TD24 TOP (08:09)
--- NOTE | 2024-11-05 09:16 | PD.RESPRO ---
Documentation for date of: 11/05/24 Subjective Subjective Interval history: Patient seen and examined at bedside. Telemetry reviewed no arrhythmias noted. Vitals reviewed to be stable. Net 24h -2.4 L. Patient feels much better with essentially resolution of lower leg edema, denies shortness of breath, chest pain, chest pressure, palpitations, lightheadedness or dizziness. Potassium increased from 3.1 to 3.5. Bicarb resolved from 33 to 26. Creatinine stable elevated 2.4. BUN increasing 35 to 40. Exam Vital Signs Temp Pulse Resp BP Pulse Ox O2 Del Method O2 Flow Rate 97.1 F 66 18 159/86 H 98 Room Air 0 11/05/24 04:00 11/05/24 08:08 11/05/24 07:05 11/05/24 08:08 11/05/24 07:05 11/05/24 04:00 11/04/24 16:00 Narrative Exam GENERAL: AOx3, no acute distress, lying comfortably in bed, saturating at 95-99%% on RA HEENT: NC/AT, mucous membranes moist, bilateral sclera anicteric CARDIOVASCULAR: regular rate and rhythm, S1/S2 present, no murmurs appreciated PULMONARY: clear to auscultation bilaterally, no rales/rhonchi/wheezes ABDOMINAL: soft, non-tender, non-distended, no rebound/guarding, bowel sounds present EXTREMITIES: no peripheral edema, 1+ pitting edema at ankles SKIN: warm and dry, intact, no rashes NEURO: CN II-XII grossly intact, no focal deficits, alert, following commands Objective Labs 11/05/24 05:16 11/05/24 05:16 Labs: Laboratory Results - last 24 hr 11/04/24 11/05/24 22:40 05:16 WBC 9.2 RBC 4.55 Hgb 11.4 L Hct 36.8 L MCV 81 MCH 25.1 MCHC 31.0 RDW Std Deviation 50.1 H Plt Count 343 Neut % (Auto) 76 Lymph % (Auto) 12 [place] % (Auto) 10 Eos % (Auto) 1 Baso % (Auto) 1 Neut # (Auto) 6.9 Lymph # (Auto) 1.1 [place] # (Auto) 0.9 H Eos # (Auto) 0.1 Baso # (Auto) 0.1 Immature Gran # (Auto) 0.04 H Absolute Nucleated RBC 0.00 Immature Gran % 0 Nucleated RBC % 0 Sodium 142 Potassium 3.2 L 3.5 Chloride 103 Carbon Dioxide 26.2 Anion Gap 13 BUN 40 H Creatinine 2.4 H Estim Creat Clear Calc 49.4 L eGFR 32 L BUN/Creatinine Ratio 17 Glucose 130 H D Calculated Osmolality 294 Calcium 9.3 Corrected Calcium 9.5 Phosphorus 3.7 Magnesium 2.2 Albumin 3.8 Quality Measures Quality Measures none Assessment & Plan Assessment Current Active Medications: Generic Name Dose Route Start Last Admin Trade Name Freq PRN Reason Stop Dose Admin Acetaminophen 650 mg 10/31/24 21:49 Acetaminophen 325 Mg Tablet PO 11/30/24 21:48 Q6H PRN PAIN SCALE 1-3 (mild Acetaminophen 650 mg 10/31/24 21:49 Acetaminophen 325 Mg Tablet PO 11/30/24 21:48 Q6H PRN Fever >100.4 Hydrocodone Bitart/Acetaminophen 1 tab 10/31/24 21:49 Hydrocodone/Apap 10/325 Tab PO 11/05/24 21:48 Q4HR PRN PAIN SCALE 7-10 (Severe Amlodipine Besylate 10 mg 11/03/24 12:15 11/05/24 08:08 Amlodipine Besylate 5 Mg Tablet PO 12/03/24 12:14 10 mg QDAY HAYLEY Administration Budesonide 1 mg 11/01/24 10:45 11/05/24 07:05 Budesonide Rt 0.5 Mg/2 Ml Nebu INH 12/01/24 10:44 1 mg BIDRT HAYLEY Administration Bumetanide 2 mg 11/01/24 21:00 11/03/24 05:37 Bumetanide Inj 0.25 Mg/Ml Vial 4 Ml IVP 12/01/24 20:59 2 mg On Hold: 11/03/24 11:38 BIDD HAYLEY Administration Carvedilol 25 mg 11/03/24 17:30 11/05/24 08:08 Carvedilol 12.5 Mg Tablet PO 12/03/24 17:29 25 mg BIDWM HAYLEY Administration Dexamethasone 6 mg 11/01/24 13:55 11/05/24 08:09 Dexamethasone 6 Mg Tablet PO 11/05/24 13:54 6 mg QDAY HAYLEY Administration Protocol Heparin Sodium (Porcine) 5,000 unit 11/01/24 09:00 11/05/24 08:09 Heparin Sod Inj 5000 Unit/Ml Vial SC 11/15/24 08:59 5,000 unit BID HAYLEY Administration Hydralazine HCl 100 mg 11/03/24 14:00 11/05/24 05:34 Hydralazine Hcl 25 Mg Tablet PO 12/03/24 13:59 100 mg TID HAYLEY Administration Potassium Chloride 10 meq in 100 mls @ 100 mls/hr 11/05/24 08:37 Kcl Ivpb IV 11/05/24 16:36 Q1H HAYLEY Labetalol HCl 10 mg 11/01/24 20:55 11/02/24 06:07 Labetalol Inj 5 Mg/Ml Vial 20 Ml IVP 12/01/24 10:46 10 mg Q4H PRN Administration SBP >200 Lisinopril 10 mg 11/05/24 09:00 11/05/24 08:07 Lisinopril 2.5 Mg Tablet PO 12/05/24 08:59 10 mg QDAY HAYLEY Administration Nicotine 21 mg 10/31/24 21:55 11/05/24 08:09 Nicotine Patch 21 Mg/24 Hr Patch.Td24 TOP 11/30/24 21:54 21 mg QDAY HAYLEY Administration Ondansetron HCl 4 mg 10/31/24 21:49 Ondansetron Inj 2 Mg/Ml Inj 2 Ml IVP 11/30/24 21:48 Q6H PRN NAUSEA OR VOMITING Protocol Oxycodone/Acetaminophen 1 tab 10/31/24 21:49 11/02/24 13:05 Oxycodone/Apap 5/325 Tablet PO 11/05/24 21:48 1 tab Q6H PRN Administration PAIN SCALE 4-6 (Moderate Pantoprazole Sodium 40 mg 11/05/24 09:00 Pantoprazole 40 Mg Tablet PO 12/05/24 08:59 QDAY HAYLEY Protocol Plan Ziggy Navarro 49M pmhx of gout and methamphetamine dependence presented to [facility] ED on 11/01 for worsening shortness of breath on minimal exertion, orthopnea, PND, and significant leg swelling. Cardiology was consulted for new onset heart failure and secondary to methamphetamine use found to have HFrEF (20-25%, 10/2024). #New onset acute decompensated heart failure #HFrEF (20-25%, 10/2024) #NSTEMI, type II NYHA Class III. Patient reports worsening SOB for the past threee months with associated orthopnea, dyspnea on exertion and PND, denies familial cardiac history. Admission BNP 868, increased from 10/30 163, likely increased from continued methamphetamine use with underlying heart failure exacerbation. Troponins 0.135->0.119->0.140->0.141. NSTEMI likely type II due to methamphetamine use and fluid overload from likely acute new onset heart failure. However type I cannot be ruled out due to current illict drug use. 11/02/2024 echocardiogram showed severe LVH. Global systolic function is severely reduced. Grade 3 diastolic dysfunction EF estimated 20 to 25%. Mildly dilated RV, septal flattening noted in diastole indicating volume overload. Biatrial dilation, mild MR, trace TR and PI, mild aortic valve sclerosis no stenosis. Small circumferential pericardial effusion without any evidence of cardiac tamponade Today, K 3.5, bicarb decreased from 33 to 26, Cr stable elevated, and BUN increasing to 40 Acetazolamide 500 mg x1 (11/05) Plan: - Telemetry for cardiac monitoring - Recommend to restart IV Bumex 2 mg BID, due to resolution of contraction alkalosis - Plan for Bumex 1 mg BID on discharge - Recommend tight blood pressure control - Keep K>4 and Mg>2 at all times - Meth abuse counseling #Hypertensive emergency On admission BP 243/149 HR 102 with likely HARINDER, although baseline is unknown and patient denies kidney disease. Plan: - Continue Carvedilol 25 mg BID, hydralazine 100 mg TID and amlodipine 10 mg QD - Per nephrology, lisinopril 10 mg QD added #HARINDER #COVID PNA #Acute transaminitis #Nicotine dependence #Methamphetamine dependence Polysubstance abuse Above management per primary team Plan of care discussed with attending Dr. Ferrara, inside horticultural specialty grower. Eulalia aHynes, DO PGY-1 Internal Medicine Attending Provider Attestation/Addendum I have personally seen and examined the patient separately on the above date of service and discussed the plan of care with the resident. I reviewed the resident Dr. Eulalia Haynes consultation progress note and agree with the resident findings and plan in the note above and have also edited the documentation to reflect my findings and plan. Jameson Ferrara M.D. Interventional Cardiology
[2024-11-05] MEDS: PANTOPRAZOLE 40 MG TABLET PO (09:37)
--- NOTE | 2024-11-05 11:29 | ESPR_ITS ---
Documentation for date of: 11/05/24 Subjective Subjective Interval history: Reason for consult: HARINDER History of present illness: Mr. Navarro is a 49y/o M with PMH of gout, and polysubstance use disorder (Methamphetamine x 10yrs +), was sent by PCP to the hospital for shortness of breath and worsening lower extremity swelling. The shortness of breathe started many months ago that worsened with physical activity. Bilateral lower extremity swelling started to worsen over last 1 months. Denies fever, chills, nausea, vomitting,chest pain, palpation, ROJAS, dysuria. UTOX was positive for methamphetamine Patient came to the hospital on 10/30 for similar reasons but decided to AMA. He came back 10/31 due to similar symptoms. Nephrology was consulted for evaulation of HARINDER with possible CKD. ED course: Afebrile, BP 243/149, HR 102, RR 22, satting 88% ORA, improved to 97% on 2 L NC. CBC relatively unchanged from yesterday with Hgb 11.1, WBC 11.4. Normal coag panel. CMP remarkable for potassium 2.8, slightly worsening renal function since yesterday with creatinine 2.4, BUN 25 and GFR 28, LFTs relatively unchanged with AST 47, ALT 51, ALP 128. Troponin slightly higher at 0.140 (remains asymptomatic without chest pain). BNP significantly higher from yesterday at 868 (previously 163). TSH 5.76, lactic acid pending but was normal yesterday. UA negative for UTI. EKG unchanged showed sinus tachycardia without acute ST changes. CXR showed mild heart failure, no pneumonia. Rapid COVID test was positive Cr: 2.7, BUN:25, eGFR: 28 In ED, patient received IV Lasix, IV labetalol, Versed and potassium replacement. Medical history: As stated above Surgical history: Right knee surgery. Allergies: NKDA Medications: ALLOPURINOL for gout. Family history: Dad , of natural causes. Mother has history of diabetes, otherwise alive and well. Brother history of diabetes. No family history of heart disease or sudden cardiac . Social history:Born and raised in the [place], lives with brother at home. Never , no children, currently in monogamous relationship with his girlfriend. Smoked 1 pack a year for greater than 20 years, currently trying to quit, smoking about 5 cigarettes daily. History of heavy alcohol use for more than 30 years. Denies illicit drug use, however UTOX positive for AMPHETAMINE. Note patient travel or sick exposure. 11/02/2024: Labs reviewed and patient examined at the bedside. Patient noted that his bilateral Lower extremity edema and shortness of breathe have improved significantly better. No other complaints at this time. Renal US ordered to assess renal function. Currently, Cr: 2.5, BUN:32, eGFR: 31 11/03/2024: Patient with lower extremity edema and shortness of breathe. Cr: 2.8, BUN:31, eGFR: 27 11/04/2024: Labs reviewed and patient examined at the bedside. Patient's bilateral lower extremity edema has improved. No other complaints at this time. Acetazolamide 500mg IV x1 given for metabolic alkalosis CO2: 33.5. Potentially benefit from entresto. Cr: 2.5, BUN:35, eGFR: 31 11/05/2024: Labs reviewed and patient examined at the bedside. Patient's bilateral lower extremity edema has almost gone. No other complaints at this time. Cr: 2.4, BUN: 40, eGFR: 32. Patient currently stable. Exam Vital Signs Temp Pulse Resp BP Pulse Ox O2 Del Method O2 Flow Rate 98.1 F 66 18 159/86 H 99 Room Air 0 11/05/24 08:00 11/05/24 08:08 11/05/24 08:00 11/05/24 08:08 11/05/24 08:00 11/05/24 08:00 11/05/24 08:00 Narrative Exam General:well nourished, AAO x3, Saturating well on 2L NC Eye: PERRL, EOMI, normal conjunctiva, no scleral icterus HENT: Normocephalic, atraumatic, hearing intact to conversation at normal volume, moist oral mucosa Neck: Supple, non-tender, no JVD, no lymphadenopathy Lungs: Non-labored respirations, symmetric chest rise, Clear to auscultate bilaterally, No wheezing, rhonchi, crackles bilaterally. Heart: Peripheral pulses intact bilaterally, Regular, Tachycardia Abdomen: Soft, non-tender, non-distended, no palpable masses Musculoskeletal: 1+ bilateral lower extremity edema. Skin: Skin is warm, dry, no rashes or lesions. Psychiatric: Cooperative, appropriate mood and affect, Awake and alert, not agitated Neuro: Cranial nerves II-XII grossly intact. Strength 5/5 throughout. Sensations intact to light touch. Objective Labs 11/05/24 05:16 11/05/24 05:16 Labs: Laboratory Results - last 24 hr 11/04/24 11/05/24 22:40 05:16 WBC 9.2 RBC 4.55 Hgb 11.4 L Hct 36.8 L MCV 81 MCH 25.1 MCHC 31.0 RDW Std Deviation 50.1 H Plt Count 343 Neut % (Auto) 76 Lymph % (Auto) 12 [place] % (Auto) 10 Eos % (Auto) 1 Baso % (Auto) 1 Neut # (Auto) 6.9 Lymph # (Auto) 1.1 [place] # (Auto) 0.9 H Eos # (Auto) 0.1 Baso # (Auto) 0.1 Immature Gran # (Auto) 0.04 H Absolute Nucleated RBC 0.00 Immature Gran % 0 Nucleated RBC % 0 Sodium 142 Potassium 3.2 L 3.5 Chloride 103 Carbon Dioxide 26.2 Anion Gap 13 BUN 40 H Creatinine 2.4 H Estim Creat Clear Calc 49.4 L eGFR 32 L BUN/Creatinine Ratio 17 Glucose 130 H D Calculated Osmolality 294 Calcium 9.3 Corrected Calcium 9.5 Phosphorus 3.7 Magnesium 2.2 Albumin 3.8 Quality Measures Quality Measures none Assessment & Plan Assessment Current Active Medications: Generic Name Dose Route Start Last Admin Trade Name Freq PRN Reason Stop Dose Admin Acetaminophen 650 mg 10/31/24 21:49 Acetaminophen 325 Mg Tablet PO 11/30/24 21:48 Q6H PRN PAIN SCALE 1-3 (mild Acetaminophen 650 mg 10/31/24 21:49 Acetaminophen 325 Mg Tablet PO 11/30/24 21:48 Q6H PRN Fever >100.4 Hydrocodone Bitart/Acetaminophen 1 tab 10/31/24 21:49 Hydrocodone/Apap 10/325 Tab PO 11/05/24 21:48 Q4HR PRN PAIN SCALE 7-10 (Severe Amlodipine Besylate 10 mg 11/03/24 12:15 11/05/24 08:08 Amlodipine Besylate 5 Mg Tablet PO 12/03/24 12:14 10 mg QDAY HAYLEY Administration Budesonide 1 mg 11/01/24 10:45 11/05/24 07:05 Budesonide Rt 0.5 Mg/2 Ml Nebu INH 12/01/24 10:44 1 mg BIDRT HAYLEY Administration Bumetanide 2 mg 11/01/24 21:00 11/03/24 05:37 Bumetanide Inj 0.25 Mg/Ml Vial 4 Ml IVP 12/01/24 20:59 2 mg On Hold: 11/03/24 11:38 BIDD HAYLEY Administration Carvedilol 25 mg 11/03/24 17:30 11/05/24 08:08 Carvedilol 12.5 Mg Tablet PO 12/03/24 17:29 25 mg BIDWM HAYLEY Administration Dexamethasone 6 mg 11/01/24 13:55 11/05/24 08:09 Dexamethasone 6 Mg Tablet PO 11/05/24 13:54 6 mg QDAY HAYLEY Administration Protocol Heparin Sodium (Porcine) 5,000 unit 11/01/24 09:00 11/05/24 08:09 Heparin Sod Inj 5000 Unit/Ml Vial SC 11/15/24 08:59 5,000 unit BID HAYLEY Administration Hydralazine HCl 100 mg 11/03/24 14:00 11/05/24 05:34 Hydralazine Hcl 25 Mg Tablet PO 12/03/24 13:59 100 mg TID HAYLEY Administration Labetalol HCl 10 mg 11/01/24 20:55 11/02/24 06:07 Labetalol Inj 5 Mg/Ml Vial 20 Ml IVP 12/01/24 10:46 10 mg Q4H PRN Administration SBP >200 Lisinopril 10 mg 11/05/24 09:00 11/05/24 08:07 Lisinopril 2.5 Mg Tablet PO 12/05/24 08:59 10 mg QDAY HAYLEY Administration Nicotine 21 mg 10/31/24 21:55 11/05/24 08:09 Nicotine Patch 21 Mg/24 Hr Patch.Td24 TOP 11/30/24 21:54 21 mg QDAY HAYLEY Administration Ondansetron HCl 4 mg 10/31/24 21:49 Ondansetron Inj 2 Mg/Ml Inj 2 Ml IVP 11/30/24 21:48 Q6H PRN NAUSEA OR VOMITING Protocol Oxycodone/Acetaminophen 1 tab 10/31/24 21:49 11/02/24 13:05 Oxycodone/Apap 5/325 Tablet PO 11/05/24 21:48 1 tab Q6H PRN Administration PAIN SCALE 4-6 (Moderate Pantoprazole Sodium 40 mg 11/05/24 09:00 11/05/24 09:37 Pantoprazole 40 Mg Tablet PO 12/05/24 08:59 40 mg QDAY HAYLEY Administration Protocol Potassium Chloride 40 meq 11/05/24 13:00 Potassium Chloride 20 Meq Tabcr PO 11/05/24 13:01 X1 ONE Plan 49y/o M with PMH of gout, and polysubstance use disorder, admitted for acute hypoxemic respiratory failure and CHF exacerbation. Nephrology consulted for management of HARINDER with possible CKD. # HARINDER # with possible Chronic Kidney Disease - On admission: Cr: 2.7, BUN:25, eGFR: 28 - Currently, Cr: 2.4, BUN:40, eGFR: 32. Not sure on baseline creatinine - On admission, he had several months of gradually worsening exertional dyspnea, lower extremity swelling, PND, and orthopnea, likely CHF exacerbation - His current renal function is most likely a result of chronic injury to the kidneys from poorly controlled CHF, resulting in fluid overload as evidenced by BNP levels. - Initial management with diuresis is warranted, dialysis can be considered if renal function does not improve with diuresis. - UTOX was positive for methamphetamine - Renal US (11/02/2024): bilateral renal cortical thinning and moderate renal scar formation without hydronephrosis. Plan: - Bumetanide 2mg IV BID is Currently - ON HOLD. - Continue to monitor renal function - Nephrology will continue to follow - Urine electrolytes, Urine protein and Urea - Avoid nephrotoxic and renally dose medications, strict ins and outs #Acute hypoxemic respiratory failure #New onset CHF #NYHA Class III heart failure - Several months of gradually worsening exertional dyspnea, lower extremity swelling, PND, and orthopnea, likely CHF exacerbation - EKG(10/31/2024): sinus rhythm, ventricular rate of 100 bpm, VT interval 152 MS, no ST segment elevation or depression - CXR (10/31/2024): Mild heart failure. Moderate enlargement cardiac contour. Differential would include pericardial effusion, Prominent vascular congestion., Early pulmonary edema the lung bases. - Bilateral lower extremity US venous doppler (10/31/2024): Negative for deep vein thrombosis - Echo (10/31/2024): New onset CHF, Severe LVH. Global systolic function is severely reduced. Grade III diastolic dysfunction. EF estimated 20-25%. Mildly dilated RV. Septal flattening noted in the diastole indicating volume overload. Biatrial dilatation. Mild MR, Trace TR and PI. Mild aortic valve sclerosis without stenosis Small circumferential pericardial effusion without any evidence of cardiac tamponade Plan: -Bumex 2mg IV bid is currently - ON HOLD. -TSH and Lipid panel -Strict ins and out -K>4 and Mg >2 replete with caution given worsening kidney function -Daily weights -Fluid restrictions 1200ml qday #COVID PNA #Hypertensive emergency #Sinus tachycardia (resolved) #COIVD positive #NSTEMI type II #Acute transaminitis #Electrolyte abnormalities #Polysubstance use disorder -Management per Primary Hospitalist team Thank you for allowing us to participate in the care of your patient. Assessment and plan discussed with my attending physician Dr. Melani Chanel (PGY-1)- Internal medicine resident Attending Provider Attestation/Addendum Patient seen and examined with resident physician Dr. Chanel. Note reviewed, agree with findings and recommendations. Patient seems to have cardiorenal syndrome. Marked improvement with diuretics. Noted severe metabolic alkalosis-1 dose of acetazolamide given yesterday and his bicarb seems to be improved. Plan of care discussed with the primary team. Blood pressure still seems to be on the higher side. However his blood pressure on admission was 260. Current blood pressure systolic 150-160 is acceptable for discharge. Will see him in my office in 1 to 2 weeks.
--- NOTE | 2024-11-05 11:45 | ESDS_ITS ---
<Statement entered by Huang Sylvester MD - 11/18/24 09:05> I reviewed above note and agree with findings and plans. I have also personally examined the patient with medicine team and went over assessment and plan with medical team including kinesiology internship and resident physician. <Statement entered by Tor Higgins MD - 11/05/24 15:00> Note reviewed and agree with care plan as documented. Please refer to the note below for further details. Plan discussed with attending physician Tor Higgins MD PGY-2 Internal Medicine Planned Discharge Date 11/05/24 DS: Providers Provider Date of admission: 10/31/24 21:49 Primary care physician: Physician No Primary/Family Admitting Provider: Elijah Stark MD Attending Provider on Admission: Huang Sylvester MD Consults: 11/01/24 01:04 Consult to Cardiology Routine Comment: New onset CHF Consulting Provider: Jameson Ferrara 11/01/24 11:43 Referral Physical Therapy Routine Comment: Physician Instructions: Health Equity Referral - Knowledge Deficit Routine Comment: Positive screening for knowledge deficit needs. 11/02/24 10:26 Consult to Nephrology Routine Comment: HFrEF (20-25%), HARINDER vs CKD, hx drug use Consulting Provider: Brigid Polo Attending Provider on DC: Huang Sylvester MD Discharging Provider: Richy Hemphill DO DS: Diagnosis Problem List Completed Was Problem List Reviewed/Reconciled?: Yes Hospital Course Hospital Course Hospital course: 49-year-old male with past medical history of gout and polysubstance abuse disorder who came in with shortness of breath and increased lower extremity swelling on 10/30/2024 after speaking to his PCP. Additionally patient had worsening exertional SOB of 3 months, and paroxysmal nocturnal dyspnea. In the ED, urine toxicology screen was ordered and came back positive for methamphetamine. Test for COVID was also positive. Patient's symptoms were decided to be volume overload secondary to CHF exacerbation in the context of COVID infection. Patient had common satting 88% on RA which improved to 97% on 2L via NC. BP was elevated to 243/149. CMP remarkable for K+ 2.8, Cr 25, and G FR 28 at presentation. Patient was started on incrementally higher doses of 3 antihypertensives to bring the blood pressure under control per treatment guidelines for hypertensive emergency, including hydralazine 100 mg 3 times daily, Coreg 25 mg twice daily, amlodipine 10 mg nightly. Blood pressure gradually was tapered down and stabilized in 140's and 150s systolic. Furthermore, patient was diuresed extensively during his hospital stay including Bumex 2 mg twice daily for 3 days, at which point patient was given a diuresis holiday. By the end of the third day, patient had lost nearly 17L in net balance of fluids, was weaned to room air, Lungs were clear to auscultation and leg edema had largely resolved and present in the feet primarily.At the point of discharge, Patient is medically stable and deemed safe to return to his/her previous state of living. Imaging: TTE Echo (10/31/24): EF estimated 20-25%. EKG: NSR, LAE, and marked left axis deviation. Mildly dilated RV.? Septal flattening noted in the diastole indicating volume overload. Biatrial dilatation. Mild MR, Trace TR and PI. Mild aortic valve sclerosis without stenosis Small circumferential pericardial effusion without any evidence of cardiac tamponade. Renal US: Right kidney 10.9 cm cortex 1.4 cm. Left kidney 10.7 cm renal cortex 1.7 cm. Bilateral renal cortical thinning, and moderate renal scar formation. No hydronophrosis. Contracted urinary bladder. Venous Doppler Study: Negative for deep venous thrombosis. Admission Diagnoses: ? Hypertensive emergency ? Sinus tachycardia ? Acute hypoxemic respiratory failure ? HFrEF EF 20 to 25% ? NYHA class III heart failure ? COVID PNA ? HARINDER ? Contraction alkalosis ? NSTEMI type II ? Acute transaminitis ? Electrolyte abnormalities ? Polysubstance use disorder Discharge Instructions: - Follow up with your primary care physician within 1-2 week of discharge - Take your medications as prescribed below in the Prescription/ Med Rec section: Amlodipine 10 mg at nights, bumetanide 1 mg daily, carvedilol 25 mg twice daily with meals, hydralazine 100 mg every 8 hours, and lisinopril 10 mg daily - Follow-up with your auto suspension and steering mechanic Dr. Josias fenton 1 week of your discharge - Follow-up with your lead pharmacy technician Dr. Polo within 1-2 week of discharge - If symptoms recur or worsen, return to the ED This case was discussed with my attending physician, Dr. Sylvester, and senior resident, Gisela Haynes. Richy Hemphill, PGY I Status at Discharge Cognitive/behavioral status at discharge: stable Overall status at discharge: patient is back to baseline Time Spent with Patient Time attestation: Total time spent providing and/or coordinating discharge services: more than 50% of patient's hospital stay duration Time spent: Greater than 30 minutes Exam Vital Signs Temp Pulse Resp BP Pulse Ox O2 Del Method O2 Flow Rate 98.1 F 66 18 159/86 H 99 Room Air 0 11/05/24 08:00 11/05/24 08:08 11/05/24 08:00 11/05/24 08:08 11/05/24 08:00 11/05/24 08:00 11/05/24 08:00 Discharge Plan Plan Patient Disposition: HOME (Self Care) Patient condition on transfer: Stable Care Plan Goals: - Follow up with your primary care physician within 1-2 week of discharge - Take your medications as prescribed below in the Prescription/ Med Rec section: Amlodipine 10 mg at nights, bumetanide 1 mg daily, carvedilol 25 mg twice daily with meals, hydralazine 100 mg every 8 hours, and lisinopril 10 mg daily - Follow-up with your auto suspension and steering mechanic Dr. Josias fenton 1 week of your discharge - Follow-up with your lead pharmacy technician Dr. Polo within 1-2 week of discharge - If symptoms recur or worsen, return to the ED Prescriptions/Referrals Prescriptions/Med Rec: New carvedilol 25 mg tablet 25 mg PO BIDWM 30 Days Qty: 60 0RF hydralazine 100 mg tablet 100 mg PO TID 30 Days Qty: 90 0RF lisinopril 10 mg tablet 10 mg PO QDAY 30 Days Qty: 30 0RF bumetanide 1 mg tablet 1 mg PO QDAY 30 Days Qty: 30 0RF amlodipine 10 mg tablet 10 mg PO HS 30 Days Qty: 30 0RF Referrals: No Primary/Family,Physician [Primary Care Provider] Patient/Caregiver Discharge Instructions Education Materials: COVID-19 Home Care, Controlling High Blood Pressure, What Is Heart Failure, Heart Failure: Tracking Your Weight, Coping with Heart Failure Print Language: Luxembourger Stand Alone Forms: Celia Award Info., Patient Portal Info Letter Discharge Order Discharge Orders: Discharge (Routine); Ordered 11/05/24 Ordered By: Tor Higgins Quality Discharge Quality Measures VTE prophylaxis
== END 2024-11-05 16:00 | disposition home or self-care (01) | DRG 137 ==
LOC: SERX 20:20 → SERHOLD 22:20 → S2NX 11-01 01:52
PROVIDERS: Nurse Practitioner Family; Student in an Organized Health Care Education/Training Program; Admitting Provider Student in an Organized Health Care Education/Training Program; Emergency Provider Family Medicine; Visit Provider Internal Medicine
DX: U07.1 COVID-19 (principal); I16.1 Hypertensive emergency; I50.9 Heart failure, unspecified; J12.82 Pneumonia due to coronavirus disease 2019; I21.A1 Myocardial infarction type 2; J96.01 Acute respiratory failure with hypoxia; N17.9 Acute kidney failure, unspecified; M10.9 Gout, unspecified; F17.210 Nicotine dependence, cigarettes, uncomplicated; R74.01 Elevation of levels of liver transaminase levels; F15.229 Other stimulant dependence with intoxication, unspecified; I13.0 Hypertensive heart and chronic kidney disease with heart failure and stage 1 through stage 4 chronic kidney disease, or unspecified chronic kidney disease; I50.20 Unspecified systolic (congestive) heart failure; I35.8 Other nonrheumatic aortic valve disorders; I31.39 Other pericardial effusion (noninflammatory); N18.9 Chronic kidney disease, unspecified; E87.3 Alkalosis; R00.0 Tachycardia, unspecified; Z78.9 Other specified health status; Z79.899 Other long term (current) drug therapy
CPT/HCPCS: 36415; 71045; 76770; 80053; 80061; 80069; 80074; 81001; 82570; 83605; 83735; 83880; 84100; 84132; 84156; 84300; 84439; 84484; 84540; 85025; 85610; 85730; 93005; 93306; 93970; 94640; 96365; 96366; 96372; 96374; 96375; 96376; 97162; 99284; A9270; J0360; J1120; J1644; J1938; J2250; J2470; J3475; J3480; J3490; J7050; J8540; J1920